=== PATIENT | female | born 1940 | race Caucasian/White ===

== ENCOUNTER → 2018-03-14 07:25 | Outpatient (CLI) | payer MEDICARE, SELFPAY ==
[2018-03-14 10:13] LABS: Absolute Lymphocyte Count 2.01 X10^3/ul (0.83-4.51); Absolute Neutrophil Count 2.9 X10^3/uL (2.0-7.7); Basophil# 0.03 X10^3/uL; Basophil% 0.5 % (0-1); Eosinophil# 0.32 X10^3/uL; Eosinophils% 5.5 % (0-5); Hematocrit 40.2 % (37-47); Hemoglobin 13.1 g/dl (12.0-15.0); Lymphocyte # 2.01 X10^3/ul (4.0); Lymphocyte % 34.4 % (19-41); Mean Corp Hgb Conc 32.6 g/gl (32-36); Mean Corpuscular Hgb 27.8 pg (27.0-32.0); Mean Corpuscular Volume 85.2 fL (81-99); Mean Platelet Vol. 11.7 fl (6.2-12.0); Monocyte# 0.54 X10^3/uL; Monocyte% 9.2 % (0-10); Neutrophil # 2.94 X10^3/uL (2.7-7.7); Neutrophil % 50.4 % (47-70); Platelet Count 179 K/mm3 (150-450); RBC Distribution Width CV 13.4 % (11.6-14.6); RBC Distribution Width SD 41.5 fl (35.1-43.9); Red Blood Count 4.72 M/mm3 (4.2-5.4); White Blood Count 5.8 K/mm3 (4.4-11.0)
[2018-03-14 10:15] LABS: POSITIVE COUNT NO; POSITIVE DIFFERENTIAL NO; POSITIVE MORPHOLOGY NO
[2018-03-14 10:24] LABS: Anion Gap 8 (5-15); BUN 20 mg/dL (7-18); BUN/Creat Ratio 18.9 RATIO (10-20); Calcium,Total 8.5 mg/dL (8.5-10.1); Chloride 105 mmol/L (98-107); Cholesterol 208 mg/dL (200); Creatinine, Serum 1.06 mg/dL (0.55-1.02); EST Glomerular Filtration Rate 53 mL/min (>60); Est Glom Filt Rate - Afr Amer 65 mL/min (>60); Glucose 85 mg/dL (74-106); High Density Lipoprotein 79 mg/dL; Potassium 4.5 mmol/L (3.5-5.1); Sodium Level 141 mmol/L (136-145); Triglycerides 79 mg/dL; Very Low Density Lipoprotein 16 mg/dL (5-40)
== END ==
PROVIDERS: Family Provider Internal Medicine; PCP Internal Medicine; Visit Provider Internal Medicine
DX: I10 Essential (primary) hypertension (principal); M85.80 Other specified disorders of bone density and structure, unspecified site
CPT/HCPCS: 36415; 80048; 80061; 85025

== ENCOUNTER → 2019-03-30 09:14 | Outpatient (CLI) | payer MEDICARE, SELFPAY ==
[2019-03-30 08:40] VITALS: BMI 39.6
[2019-03-30 12:38] LABS: Absolute Lymphocyte Count 1.48 X10^3/ul (0.83-4.51); Absolute Neutrophil Count 2.8 X10^3/uL (2.0-7.7); Basophil# 0.02 X10^3/uL; Basophil% 0.4 % (0-1); Eosinophil# 0.19 X10^3/uL; Eosinophils% 3.8 % (0-5); Hematocrit 39.2 % (37-47); Lymphocyte # 1.48 X10^3/ul (4.0); Lymphocyte % 29.8 % (19-41); Mean Corp Hgb Conc 33.2 g/gl (32-36); Mean Corpuscular Volume 84.3 fL (81-99); Mean Platelet Vol. 12.3 fl (6.2-12.0); Monocyte# 0.48 X10^3/uL; Monocyte% 9.7 % (0-10); Neutrophil # 2.79 X10^3/uL (2.7-7.7); Neutrophil % 56.3 % (47-70); Platelet Count 179 K/mm3 (150-450); RBC Distribution Width SD 39.3 fl (35.1-43.9); Red Blood Count 4.65 M/mm3 (4.2-5.4)
[2019-03-30 12:46] LABS: POSITIVE COUNT NO; POSITIVE DIFFERENTIAL NO; POSITIVE MORPHOLOGY NO
[2019-03-30 13:03] LABS: Anion Gap 6 (5-15); BUN 21 mg/dL (7-18); BUN/Creat Ratio 17.2 RATIO (10-20); Calcium,Total 8.7 mg/dL (8.5-10.1); Chloride 105 mmol/L (98-107); Cholesterol 218 mg/dL (200); Creatinine, Serum 1.22 mg/dL (0.55-1.02); EST Glomerular Filtration Rate 45 mL/min (>60); Est Glom Filt Rate - Afr Amer 55 mL/min (>60); Glucose 92 mg/dL (74-106); High Density Lipoprotein 90 mg/dL; Potassium 4.3 mmol/L (3.5-5.1); Sodium Level 140 mmol/L (136-145); Triglycerides 59 mg/dL; Very Low Density Lipoprotein 12 mg/dL (5-40)
== END ==
PROVIDERS: Family Provider Internal Medicine; PCP Internal Medicine; Visit Provider Internal Medicine
DX: I10 Essential (primary) hypertension (principal); M85.80 Other specified disorders of bone density and structure, unspecified site; F41.9 Anxiety disorder, unspecified
CPT/HCPCS: 36415; 80048; 80061; 85025

== ENCOUNTER → 2019-06-11 09:16 | Outpatient (CLI) | payer MEDICARE, SELFPAY ==
[2019-06-11 09:09] VITALS: BMI 39.6
--- NOTE | 2019-06-11 09:18 | RAD_ITS ---
STUDY: X-RAY - LUMBAR SPINE REASON FOR EXAM: Female, 78 years old. Low back pain following a recent fall. TECHNIQUE: 4 view(s) of the lumbar spine were obtained including oblique views. COMPARISON: None FINDINGS: There is an exaggerated lumbar lordosis. There is no substantial scoliosis. There is a normal alignment of the vertebrae. There is generalized demineralization of the vertebral bodies. Normal disc space heights. The soft tissue structures are unremarkable. RAD/L/S Spine Min 4 Views IMPRESSION: No acute abnormality is seen. Electronically Signed: José Antonio Reyna, at 10:25 EDT , Service support ,
== END ==
PROVIDERS: Family Provider Internal Medicine; PCP Internal Medicine; Referring Provider Physician Assistant Surgical; Visit Provider Physician Assistant Surgical
DX: S30.0XXA Contusion of lower back and pelvis, initial encounter (principal); X58.XXXA Exposure to other specified factors, initial encounter; Y93.9 Activity, unspecified; Y92.9 Unspecified place or not applicable; Y99.9 Unspecified external cause status
CPT/HCPCS: 72110

== ENCOUNTER → 2019-06-19 11:03 | Outpatient (CLI) | payer MEDICARE, SELFPAY ==
[2019-06-18 13:33] VITALS: BMI 39.6
== END ==
PROVIDERS: Family Provider Internal Medicine; PCP Internal Medicine; Referring Provider Internal Medicine; Visit Provider Internal Medicine
DX: R19.5 Other fecal abnormalities (principal)
CPT/HCPCS: 82274

== ENCOUNTER 2019-10-04 11:32 | Emergency (ER) | payer MEDICARE, SELFPAY ==
[2019-07-16 11:59] VITALS: BMI 39.6
[2019-10-04 11:33] VITALS: BP 163/73; PULSE 89; RESP 16; TEMP 36.7; O2SAT 99; BMI 36.2
--- NOTE | 2019-10-04 11:55 | VDLE_ITS ---
Reason For Study: pain RIGHT LEFT CFV is compressible, spontaneous, phasic, GSV is normal. competent and demonstrates normal CFV is compressible, spontaneous, phasic, augmentation. competent, and demonstrates normal Procedure augmentation. Exam performed portable in ED. FV is compressible, spontaneous, phasic, The exam was diagnostic. competent and demonstrates normal A preliminary report was called and/or faxed augmentation. to Dr. Dye. POP V is compressible, spontaneous, phasic, competent and demonstrates normal augmentation. T/P Trunk is compressible. PTV is compressible. LT PerV is compressible. Interpretation Summary There is no evidence of left lower extremity deep vein thrombosis. Left great saphenous vein appears patent and compressible segmentally. Normal flow patterns right common femoral vein Ordering Physician: Félix Dye Performed By: Jaquan Walker RVT
--- NOTE | 2019-10-04 13:27 | ED.VISSUMM ---
- ER Visit Summary Date of Service: 10/04/19 Chief Complaint: [Left leg pain] History of Present Illness: The patient is a 79 F [presents the emergency department complaint of left leg pain that she is had for over 3 months. Patient states that she fell 3 months ago and injured her left leg and she has had pain ever since that time. Patient states that she was seen at a walk-in clinic and had x-rays of her leg which were unremarkable. Patient is able to bear weight but does have pain with walking. She denies weakness in extremities. She denies any change in bowel bladder function. She denies any saddle anesthesia. She denies recent travel or surgery. She denies any chest pain or shortness of breath. Patient states that her primary care physician gave her some pain medicine that seems to help her pain when she takes it.] Physical Examination: [HEENT-PERRLA, EOMI. Cranial nerves II through XII grossly intact. TMs clear. Mucous membranes moist. No adenopathy. Cardiovascular-regular rate and rhythm without murmur or ectopy Lungs-clear to auscultation, chest wall stable without crepitus or subcu emphysema Abdomen-normoactive bowel sounds, soft, nontender, no rebound or rigidity, no peritoneal signs. Back exam-no tenderness over the lumbar spine or paraspinal musculature. Negative straight leg raises. Deep tendon reflexes are plus 2 out of 4 bilaterally at the patella and Achilles. Patient has normal L5 extension. Extremities-intact ?4, normal range of motion, normal pulses, atraumatic]. Left leg-no obvious deformity. There is no significant edema or swelling noted. I have a hard time reproducing her pain on palpation of the leg. She has a negative Homans sign. She has negative straight leg raises. No erythema or warmth noted to the extremity. Has normal pulses. Test Results: [Venous Doppler of the left leg obtained was negative for DVT. Emergency Department Course and Treatment: [] Treatment Plan: [Will be given a prescription for few [place] for pain. Patient to follow-up with her primary care physician and also I will refer her to orthopedics for follow-up if her pain persist.] Disposition: [Discharged home in stable condition.] Impression: [Left leg pain-etiology uncertain] This note was generated with PreciouStatusation software. It may contain incorrect words, spelling, and punctuation that were not noted in review of the chart prior to signing ED Disposition - Plan for ED Patient: Disposition: Home or Assisted Living Referrals: Jammie Coleman MD [Primary Care Provider] -
--- NOTE | 2019-10-04 13:30 | DCINST.ED_ITS ---
ED Disposition - Plan for ED Patient: Disposition: Home or Assisted Living Instructions: CONTUSION, Lower Extremity Prescriptions: Hydrocodone Bitart/Apap 5-325 [[place] 5MG-325MG] 1 tab PO Q4H PRN PRN 2 Days #10 tab PRN Reason: Pain Prescription Printed Referrals: Jammie Coleman MD [Primary Care Provider] - 3-5 Days Nitin Macario MD [STAFF PHYSICIAN] - 3-5 Days
[2019-10-04 13:51] VITALS: RESP 16
--- NOTE | 2019-10-04 13:52 | ED.RN ---
REVIEWED D/C INSTRUCTIONS, FOLLOW UP CARE, PRESCRIPTION, AND S/S THAT WOULD WARRANT A RETURN TO THE ED WITH PT. PT VERBALIZED AN UNDERSTANDING AND DENIES FURTHER QUESTIONS FOR THIS RN. PT SKIN P/W/D, RESP EVEN AND UNLABORED, PT A&O X 3, NO DISTRESS NOTED. PT AMBULATED OUT OF ED, GAIT STEADY.
== END 2019-10-04 13:54 | disposition home or self-care (01) ==
PROVIDERS: Emergency Provider Emergency Medicine; Family Provider Internal Medicine; PCP Internal Medicine
DX: M79.605 Pain in left leg (principal); Z79.82 Long term (current) use of aspirin; Z79.899 Other long term (current) drug therapy
CPT/HCPCS: 93971; 99282

== ENCOUNTER → 2019-10-05 11:40 | Outpatient (CLI) | payer MEDICARE, SELFPAY ==
[2019-10-05 10:44] VITALS: BMI 36.2
--- NOTE | 2019-10-05 11:42 | RAD_ITS ---
STUDY: X-RAY - LEFT KNEE REASON FOR EXAM: Female, 79 years old. Left knee pain TECHNIQUE: 4 view(s) of the knee. COMPARISON: None. FINDINGS: Normal visualized distal femur. Normal visualized proximal tibia and fibula. Normal proximal tibiofibular articulation. There is mild degenerative arthrosis of the medial femorotibial compartment. Normal lateral femorotibial compartment. There is mild degenerative arthrosis of the patellofemoral articulation. The soft tissue structures are unremarkable. RAD/Knee 4 or More Views IMPRESSION: Mild degenerative changes of the medial and patellofemoral compartments. Electronically Signed: Juancho Payan MD at 18:47 EST , Service support ,
== END ==
PROVIDERS: Family Provider Internal Medicine; PCP Internal Medicine; Referring Provider Nurse Practitioner Family; Visit Provider Nurse Practitioner Family
DX: M25.562 Pain in left knee (principal); G89.29 Other chronic pain
CPT/HCPCS: 73564

== ENCOUNTER 2019-12-27 20:01 | Emergency (ER) | payer MEDICARE, SELFPAY ==
[2019-11-20 10:40] VITALS: BMI 36.2
[2019-12-27 20:03] VITALS: BP 146/82; PULSE 100; RESP 18; TEMP 36.4; O2SAT 98; BMI 38.9
--- NOTE | 2019-12-27 20:47 | ED.RN ---
marbin davila did go in to the room to do an ekg and the pt stated that she does't have anything wrong with her heart and c/o neck pain and goose bumps on her chest. pt wants md to evaluate first.
--- NOTE | 2019-12-27 21:04 | EKG12_ITS ---
Test Reason : PALPITATIONS Blood Pressure : / mmHG Vent. Rate : 091 BPM Atrial Rate : 091 BPM P-R Int : 180 ms QRS Dur : 082 ms QT Int : 340 ms P-R-T Axes : 058 049 -01 degrees QTc Int : 418 ms Sinus rhythm with marked sinus arrhythmia Otherwise normal ECG Confirmed by REGINA PEREA, HERVE ([id number]), senior technical editor MIKAEL STUART ([id number]) on 12/31/2019 9:54:05 AM Referred By: ROMULO Confirmed By:HERVE TAPIA MD
--- NOTE | 2019-12-27 21:05 | RAD_ITS ---
STUDY: X-RAY CHEST REASON FOR EXAM: Female, 79 years old. Palpitations TECHNIQUE: Single AP portable view of the chest. COMPARISON: 05/30/2016 FINDINGS: The lungs are clear and expanded. There is no demonstrated pleural abnormality. Normal size heart. Normal mediastinum and jailene. Normal visualized pulmonary arteries. Normal visualized aortic arch and descending thoracic aorta. Normal visualized thoracic spine. Normal visualized ribs, clavicles, and shoulders. There is no demonstrated abnormality of the visualized soft tissue structures of the upper abdomen. RAD/Chest 1 View (Portable) IMPRESSION: Normal x-ray examination of the chest. Electronically Signed: Danny Mc MD at 21:22 EST , Service support ,
[2019-12-27 21:12] LABS: Absolute Lymphocyte Count 2.24 X10^3/uL (0.83-4.51); Absolute Neutrophil Count 4.4 X10^3/uL (2.0-7.7); Basophil# 0.04 X10^3/uL; Basophil% 0.5 % (0-1); Eosinophil# 0.21 X10^3/uL; Eosinophils% 2.8 % (0-5); Hematocrit 37.1 % (37-47); Hemoglobin 12.4 g/dL (12.0-15.0); Lymphocyte # 2.24 X10^3/ul (4.0); Lymphocyte % 29.7 % (19-41); Mean Corp Hgb Conc 33.4 g/dL (32-36); Mean Corpuscular Hgb 28.9 pg (27.0-32.0); Mean Corpuscular Volume 86.5 fL (81-99); Mean Platelet Vol. 12.1 fl (6.2-12.0); Monocyte# 0.63 X10^3/uL; Monocyte% 8.4 % (0-10); NRBC Flagged by Analyzer 0 % (0-5); Neutrophil # 4.38 X10^3/uL (2.7-7.7); Neutrophil % 58.2 % (47-70); Platelet Count 222 K/mm3 (150-450); RBC Distribution Width CV 12.6 % (11.6-14.6); RBC Distribution Width SD 39.9 fl (35.1-43.9); Red Blood Count 4.29 M/mm3 (4.2-5.4); White Blood Count 7.5 K/mm3 (4.4-11.0)
[2019-12-27 21:16] VITALS: BP 163/74; PULSE 89; RESP 18; O2SAT 96
[2019-12-27] MEDS: Aspirin 81 MG TAB.CHEW 324 MG PO (21:16)
[2019-12-27 21:31] LABS: Anion Gap 5 (5-15); BUN 17 mg/dL (7-18); BUN/Creat Ratio 13.3 RATIO (10-20); Calcium,Total 8.6 mg/dL (8.5-10.1); Chloride 103 mmol/L (98-107); Creatinine, Serum 1.28 mg/dL (0.55-1.02); EST Glomerular Filtration Rate 43 mL/min (>60); Est Glom Filt Rate - Afr Amer 52 mL/min (>60); Estimated Creatinine Clearance 28.19 ml/min; Glucose 120 mg/dL (74-106); Potassium 3.8 mmol/L (3.5-5.1); Sodium Level 136 mmol/L (136-145)
[2019-12-27 22:46] VITALS: BP 137/63; PULSE 100; RESP 18; O2SAT 96
[2019-12-27 23:02] VITALS: BP 132/58; PULSE 87; RESP 20; O2SAT 97
--- NOTE | 2019-12-28 00:19 | ED.DCSUM_ITS ---
- ER Visit Summary Date of Service: 12/28/19 Chief Complaint: Anxiety History of Present Illness: The patient is a 79 F presenting stating that she has anxiety. She states that she has been under stress and worries about paying her bills. She states she had palpitations/goosebumps in her chest feeling. She denies chest pain or chest pressure. Denies shortness of breath. Denies recent fever or cough. She complains of anxiety. She denies suicidal thoughts or depression. Denies dizziness or syncope. Denies other complaints. Physical Examination: Vitals are stable. Patient is afebrile. Alert no acute distress. HEENT exam is unremarkable. Neck is supple. Lungs are clear and equal bilaterally. Heart is regular rate and rhythm. Abdomen is soft nontender nondistended. Extremities are unremarkable. Skin is warm and dry. No focal neurologic deficit. Remainder of exam is unremarkable. Emergency Department Course and Treatment: EKG is sinus rhythm rate of 91 with no acute ischemic changes. CBC, chemistries unremarkable other than glucose 120, creatinine 1.28. Troponin is negative. Chest x-ray shows no acute process. Repeat troponin is also negative. On reevaluation patient is resting comfortably and is asymptomatic. She will be discharged. She is advised to follow-up with her primary care physician. Advised return to ED for worsening symptoms. Disposition: Discharge home Impression: Palpitations This note was generated with [employer] 2 dictation software. It may contain incorrect words, spelling, and punctuation that were not noted in review of the chart prior to signing ED Disposition - Plan for ED Patient: Instructions: Palpitations Referrals: Jammie Coleman MD [Primary Care Provider] -
[2019-12-28 00:21] VITALS: BP 160/75; PULSE 100; RESP 15; O2SAT 96
== END 2019-12-28 00:22 | disposition home or self-care (01) ==
PROVIDERS: Emergency Provider Emergency Medicine; PCP Internal Medicine
DX: R00.2 Palpitations (principal); F41.9 Anxiety disorder, unspecified; Z79.82 Long term (current) use of aspirin; Z79.899 Other long term (current) drug therapy
CPT/HCPCS: 71045; 80048; 84484; 85025; 93005; 99285; A4216

== ENCOUNTER 2021-02-11 11:31 | Emergency (ER) | payer MEDICARE, SELFPAY ==
[2020-02-22 16:06] VITALS: BMI 38.9
[2021-02-11 11:33] VITALS: BP 143/74; PULSE 78; RESP 14; TEMP 35.3; O2SAT 98; BMI 39.2
[2021-02-11 11:44] VITALS: BMI 34.0
--- NOTE | 2021-02-11 11:48 | CT_ITS ---
STUDY: CT BRAIN WITHOUT CONTRAST REASON FOR EXAM: Female, 80 years old. Aphasia for 6 to 8 months. RADIATION DOSAGE (If Supplied By Facility): CTDIvol = ( 44.99 ) mGy, DLP = ( 779.24 ) mGycm TECHNIQUE: Transaxial CT imaging of the brain was performed without administration of intravenous contrast material. Individualized dose optimization techniques were used for this CT. COMPARISON: Comparison is made with prior examination dated 05/16/2017. FINDINGS: Normal soft tissue structures. Normal calvarium. There is moderate cerebral atrophy with widening of the extra-axial spaces and ventricular dilatation. Stable 5.3 mm rounded focus of increased attenuation in the anterior aspect of the right frontal lobe. This may represent a cavernous angioma. Normal basal ganglia and thalami. Normal brainstem. There is mild cerebellar atrophy. There is no intracranial hemorrhage. There are no findings of an acute ischemic infarction. Atherosclerotic plaque formation of the cavernous portions of the internal carotid arteries bilaterally. Normal visualized paranasal sinuses. CT/Brain/Head without Contrast IMPRESSION: Chronic involutional changes of the brain. Stable examination. Electronically Signed: José Antonio Reyna MD at 12:34 EDT , Service support ,
--- NOTE | 2021-02-11 11:49 | EKG12_ITS ---
Test Reason : NEURO Blood Pressure : / mmHG Vent. Rate : 070 BPM Atrial Rate : 070 BPM P-R Int : 166 ms QRS Dur : 088 ms QT Int : 404 ms P-R-T Axes : -01 044 018 degrees QTc Int : 436 ms Normal sinus rhythm Normal ECG Confirmed by REGINA PEREA, HERVE ([id number]), editor department MIKAEL STUART ([id number]) on 02/13/2021 11:32:01 AM Referred By: RU Confirmed By:HERVE TAPIA MD
--- NOTE | 2021-02-11 11:50 | ED.DCSUM_ITS ---
- ER Visit Summary Date of Service: 02/11/21 Chief Complaint: [Concern for stroke secondary to expressive aphasia] History of Present Illness: The patient is a 80 F [presents to the emergency department from urgent care after she was advised that she should be seen in the emergency department. Patient states that she went to urgent care today because yesterday she had a pop in her right ear that was transient and uncomfortable but has since resolved any discomfort. Patient also states that today she had a couple of waves of a hot sensation that starts in her legs and got it goes up towards her head and then back down and she has had this happen twice today. She denies any fever. She denies cough. She denies urinary symptoms. She denies focal weakness. Patient was noted to have some expressive aphasia which she states that she has had trouble finding words for 5 or 6 months. Patient has history of hypertension as well as BPV and history of anxiety. Patient also states that she is currently not wearing her dentures.] Physical Examination: [HEENT-PERRLA, EOMI. Cranial nerves II through XII grossly intact. TMs clear. Mucous membranes moist. No adenopathy. Cardiovascular-regular rate and rhythm without murmur or ectopy Lungs-clear to auscultation, chest wall stable without crepitus or subcu emphysema Abdomen-normoactive bowel sounds, soft, nontender, no rebound or rigidity, no peritoneal signs. Neuro [id number]-[id number] and heel burroughs testing within normal limits, negative Romberg, negative Romberg, fundi benign. No focal neurologic deficits noted. There is no facial droop. No dysarthria noted. Patient was not noted to have any significant expressive aphasia here. Extremities-intact ?4, normal range of motion, normal pulses, atraumatic] Test Results: [EKG obtained arrival shows sinus rhythm with a ventricular rate 70 bpm with no acute ST segment changes. CBC with differential was normal. Chemistries unremarkable. Urinalysis normal. Troponin less than 0.015. CT scan of the brain without contrast showed chronic involutional changes otherwise nothing acute. She did have a 5.3 mm density in the right frontal lobe which speculated to be a cavernous angioma.] Emergency Department Course and Treatment: [ IV line established on arrival. Patient placed on a alarm security or surveillance monitor. I discussed results with patient and I discussed with patient's daughter who is now in the room. Patient apparently has becoming more forgetful and difficulty with speech is been ongoing for months. Patient has not been diagnosed with dementia.] Treatment Plan: [Patient advised to follow-up with primary care physician in 5 to 7 days. At this point etiology of her symptoms unclear.] Disposition: [Discharged home in stable condition] Impression: [Difficulty with speech-etiology uncertain Hot flashes] This note was generated with [employer] dictation software. It may contain incorrect words, spelling, and punctuation that were not noted in review of the chart prior to signing ED Disposition - Plan for ED Patient: Referrals: Jammie Coleman MD [Primary Care Provider] -
[2021-02-11 12:16] LABS: Absolute Lymphocyte Count 1.49 X10^3/uL (0.83-4.51); Absolute Neutrophil Count 4.9 X10^3/uL (2.0-7.7); Basophil# 0.04 X10^3/uL; Basophil% 0.6 % (0-1); Eosinophil# 0.16 X10^3/uL; Eosinophils% 2.2 % (0-5); Hematocrit 41.3 % (37-47); Hemoglobin 13.7 g/dL (12.0-15.0); Lymphocyte # 1.49 X10^3/ul (4.0); Lymphocyte % 20.7 % (19-41); Mean Corp Hgb Conc 33.2 g/dL (32-36); Mean Corpuscular Hgb 28.8 pg (27.0-32.0); Mean Corpuscular Volume 86.8 fL (81-99); Mean Platelet Vol. 11.2 fl (6.2-12.0); Monocyte# 0.63 X10^3/uL; Monocyte% 8.8 % (0-10); NRBC Flagged by Analyzer 0 % (0-5); Neutrophil # 4.86 X10^3/uL (2.7-7.7); Neutrophil % 67.4 % (47-70); Platelet Count 233 K/mm3 (150-450); Red Blood Count 4.76 M/mm3 (4.2-5.4); White Blood Count 7.2 K/mm3 (4.4-11.0)
[2021-02-11 12:35] LABS: Anion Gap 4 (5-15); BUN 18 mg/dL (7-18); BUN/Creat Ratio 16.2 RATIO (10-20); Calcium,Total 9.2 mg/dL (8.5-10.1); Chloride 104 mmol/L (98-107); Creatinine, Serum 1.11 mg/dL (0.55-1.02); EST Glomerular Filtration Rate 50 mL/min (>60); Est Glom Filt Rate - Afr Amer 61 mL/min (>60); Estimated Creatinine Clearance 33.44 ml/min; Glucose 113 mg/dL (74-106); Potassium 4.3 mmol/L (3.5-5.1); Sodium Level 137 mmol/L (136-145)
[2021-02-11 12:51] VITALS: BP 159/70; PULSE 69; RESP 18; O2SAT 97
[2021-02-11 13:06] LABS: Mucous, Urine 0 SEEN /hpf (<or=2+); Red Blood Cells-Urine 0 SEEN /hpf (0-5)
[2021-02-11 13:09] LABS: Color, Urine Straw (Yellow); Glucose, Dipstick Normal (Normal); Ketone-Dipstick Negative (Negative); Leukocyte Esterase-Dipstick 25 /ul (Negative); Nitrite-Dipstick Negative (Negative); Occult Blood-Urine Negative /ul (Negative); Protein-Dipstick Negative (Negative); Urine Bilirubin Dipstick Negative (Negative); Urine Clarity Sl. Cloudy (Clear); Urine Urobilinogen Normal (Normal)
[2021-02-11 13:22] LABS: Bacteria 2+ /hpf (None Seen); Squamous Epithelial Cells - UA 0-5 SEEN /hpf (5-10); White Blood Cells 0-5 SEEN /hpf (0-5)
--- NOTE | 2021-02-11 13:36 | ED.DEP ---
ED Disposition - Plan for ED Patient: Instructions: ED Weakness (Uncertain Cause), ED Confusion, Understanding Dementia Referrals: Jammie Coleman MD [Primary Care Provider] - 5-7 Days
[2021-02-11 13:51] VITALS: BP 140/72; PULSE 78; RESP 16; O2SAT 95
== END 2021-02-11 13:56 | disposition home or self-care (01) ==
PROVIDERS: Emergency Provider Emergency Medicine; PCP Internal Medicine
DX: R47.01 Aphasia (principal); N95.1 Menopausal and female climacteric states; D18.02 Hemangioma of intracranial structures; I10 Essential (primary) hypertension; H81.10 Benign paroxysmal vertigo, unspecified ear; F41.9 Anxiety disorder, unspecified; Z79.899 Other long term (current) drug therapy; Z79.82 Long term (current) use of aspirin
CPT/HCPCS: 70450; 80048; 81001; 84484; 85025; 93005; 99284; A4216

== ENCOUNTER → 2021-03-07 08:25 | Outpatient (CLI) | payer MEDICARE, SELFPAY ==
[2021-02-20 09:19] VITALS: BMI 39.3
--- NOTE | 2021-03-07 08:29 | MRI_ITS ---
STUDY: MRI BRAIN WITHOUT CONTRAST REASON FOR EXAM: Female, 80 years old. Dizziness expressive aphasia TECHNIQUE: Standardized multiplanar fat and water weighted pulse sequences were obtained. COMPARISON: 11 February 2021, 16 September 2013 FINDINGS: There is no acute infarct. There is no Mass effect, extra parenchymal fluid collections or herniation. 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 Major vascular flow structures are intact. Craniocervical junction is unremarkable. Left lens is removed. MRI/Brain without Contrast IMPRESSION: 1. No acute infarct. 2. No acute findings. 3. Stable since 2012. 4. Small right frontal cavernous angioma. Electronically Signed: Akosua Prieto MD at 10:34 EDT Tel , Service support ,
== END ==
PROVIDERS: PCP Internal Medicine; Visit Provider Internal Medicine
DX: R47.01 Aphasia (principal); R42 Dizziness and giddiness
CPT/HCPCS: 70551

== ENCOUNTER 2021-09-21 14:23 | Inpatient (IN) | payer MEDICARE, SELFPAY ==
[2021-09-21] VITALS (10 sets, daily range): BP systolic 113–136; BP diastolic 58–111; PULSE 82–99; RESP 16–253; TEMP 36.1–37.2; O2SAT 92–98; BMI 35.2; BMI 34.3
--- NOTE | 2021-09-21 14:49 | EKG12_ITS ---
Test Reason : SOB Blood Pressure : / mmHG Vent. Rate : 102 BPM Atrial Rate : 102 BPM P-R Int : 138 ms QRS Dur : 078 ms QT Int : 320 ms P-R-T Axes : 000 052 023 degrees QTc Int : 417 ms Sinus tachycardia with Premature atrial complexes Otherwise normal ECG Confirmed by CONSTANZA PEREA, NELSON ([id number]), movie editor MIKAEL STUART ([id number]) on 09/25/2021 7:22:28 AM Referred By: TOMEKA Confirmed By:NELSON APODACA MD
--- NOTE | 2021-09-21 14:51 | EDS_ITS ---
HPI History of Present Illness Chief Complaint: Shortness of Breath Informant: patient Narrative Narrative: It is extremely difficult to get answers from this patient. There is recorded shortness of breath but she denies this to me. When I note that she has a cough she admits it but does not know when it started but does not think it is new. She points to her right tooth on the upper jaw is an area of problem. But she does not say what is wrong with it. When I ask her if it hurts she states it never hurt and it does not hurt now. I then asked her what is wrong with her right tooth and she states that it hurts. She is oriented to person and hospital. I cannot get the date from her. She could not tell me the president but seem to recognize President Paradise's name who was the prior president. The one thing I can get her to admit to his nausea vomiting and diarrhea. However she denies abdominal pain. I cannot get her to answer anything about urination. Patient cannot tell me her past medical history, medications, allergies. She thinks she has had her appendix out with something else but does not know if she is ever had hysterectomy. She cannot tell me what surgery she had. It sounds like she currently lives in her home but her family has moved in with her over some recent period of time. Because of her questioning, I question the accuracy of her review of systems although we did go through this with her. I asked her about Covid vaccine and she does not seem to recognize what I am asking about. [facility] Medical History (Updated 09/21/21 @ 19:[address] Manuel Palmer MD) Anxiety Back pain Cancer Diabetes Hypertension Osteopenia Home Medications aspirin 81 mg PO DAILY@0800 09/15/13 [History Last Taken 05/16/17] citalopram 20 mg tablet 20 mg PO DAILY #90 tablet 10/28/20 [Rx Last Taken Unknown] lisinopril 5 mg tablet 5 mg PO DAILY #90 tablet 01/27/21 [Rx Last Taken Unknown] arm brace #2 each 02/20/21 [Rx Last Taken Unknown] multivitamin 1 tablet PO DAILY 02/20/21 [History Last Taken Unknown] Allergy/AdvReac Type Severity Reaction Status Date / Time codeine AdvReac Other Verified 09/21/21 14:24 Family History Mother Hypertension Cancer lymphoma Diabetes Sister Colon cancer Brother CVA (cerebral vascular accident) Social History Smoking Status: Never smoker alcohol intake: current alcohol intake frequency: holidays/special occasions only Alcohol type: beer substance use type: does not use what type of physical activity do you participate in: walking frequency: 3-4 times per week ROS ROS ED Review of Systems ROS Unobtainable: due to mental status Constitutional Constitutional ED: Denies fever(s) Eyes Eyes: Denies blurry vision ENT ENT ED: Reports other Details: She does state her right upper jaw is sore. Please see history of present illness. Cardiovascular Cardiovascular: Denies chest pain Respiratory/Chest Respiratory/Chest: Reports cough; Denies dyspnea Gastrointestinal Gastrointestinal: Reports diarrhea, nausea and vomiting; Denies abdominal pain Genitourinary Genitourinary ED: Reports other Details: Unable to give me an answer. Musculoskeletal Musculoskeletal: Denies myalgias Integumentary Denies rash Neurologic Neurologic: Reports weakness and other Details: Patient does admit to generalized weakness. She states she just does not feel well. She cannot elaborate further. Allergic/Immunologic Allergic/Immunologic ED: Denies urticaria EXAM Physical Exam Const Vital Signs: 09/21/21 14:25 09/21/21 14:28 09/21/21 15:28 Temperature 99 F 99 F Temperature Source Temporal Temporal Pulse Rate 99 99 99 Respiratory Rate 24 H 24 H 21 H Blood Pressure 136/111 H 136/111 H 127/67 H Blood Pressure Mean 119 119 87 Pulse Ox 92 92 95 Oxygen Delivery Method Room Air Room Air Room Air Oxygen Flow Rate (L/min) 09/21/21 16:08 09/21/21 17:11 09/21/21 17:40 Temperature 99.0 F Temperature Source Temporal Pulse Rate 94 90 88 Respiratory Rate 16 22 H 25 H Blood Pressure 120/63 122/61 H 122/61 H Blood Pressure Mean 82 81 81 Pulse Ox 96 95 95 Oxygen Delivery Method Room Air Nasal Cannula Nasal Cannula Oxygen Flow Rate (L/min) 2 2 09/21/21 18:19 09/21/21 19:07 Temperature Temperature Source Pulse Rate 91 86 Respiratory Rate 26 H 25 H Blood Pressure 113/60 115/60 Blood Pressure Mean 77 78 Pulse Ox 97 97 Oxygen Delivery Method Nasal Cannula Nasal Cannula Oxygen Flow Rate (L/min) 2 2 Positive well nourished and well developed General Appearance ED: well developed and NAD; Negative for cyanotic or diaphoretic HEENT Reports dry mucous membranes HEENT Narrative: She is edentulous. I see no areas of swelling or erythema. There is some bony fullness in her right upper posterior jaw where she seems to have discomfort. But it is not soft or red. It is also not tender on exam. Mouth ED: Yes dry mucous membranes Mouth: dry mucous membranes Eyes PERRL Neck no lymphadenopathy and no JVD Neck Narrative: I feel no neck masses. Resp normal respiratory effort and clear to auscultation bilaterally Resp Narrative: Patient does have intermittent cough. But I hear no wheezes rales or rhonchi. Auscultation: Negative for rales, rhonchi or wheezes Cardio regular rate and regular rhythm GI normal to inspection, nondistended, normoactive bowel sounds, non-tender and non-distended GI Narrative: I press firmly in all quadrants. There is no discomfort. Palpation: soft Back/Spine no CVA tenderness Extremity normal to inspection Neuro Neuro Narrative: Oriented to person and [facility]. She cannot give me the current president or the date. Sensorium / Orientation: alert Psych Psych Narrative: Mildly flat affect. Skin no rashes or lesions noted MDM MDM MDM Narrative Medical decision making narrative: Patient's labs show elevated hemoglobin that might be some mild hemoconcentration. Low her white count. Lactate is normal. Troponin was negative. Creatinine was up a bit showing some signs of dehydration with elevated BUN to creatinine ratio. X-ray was consistent with Covid. Covid was positive. Urinalysis also showed UTI with cloudy urine on a cath specimen with 25-50 white cells and nitrites and leukocyte Estrace. She was treated for this. We tried to walk the patient and she is just too weak to walk. She was hypoxic in the lower 80% by EMS. I discussed case with hospitalist and the patient will be admitted. Lab Data Attestation: I reviewed the patient's lab results. Labs: Laboratory Results - last 24 hr 09/21/21 09/21/21 09/21/21 16:32 16:32 16:32 WBC 5.1 RBC 5.63 H Hgb 15.7 H Hct 46.4 MCV 82.4 MCH 27.9 MCHC 33.8 RDW Std Deviation 38.1 RDW Coeff of Te 12.5 Plt Count 130 L MPV 12.7 H Immature Gran % (Auto) 0.200 Neut % (Auto) 78.2 H Lymph % (Auto) 12.1 L [place] % (Auto) 9.3 Eos % (Auto) 0.0 Baso % (Auto) 0.2 Absolute Neuts (auto) 4.0 Absolute Lymphs (auto) 0.62 L Nucleated RBC % 0 Sodium 136 Potassium 4.3 Chloride 103 Carbon Dioxide 25.0 Anion Gap 8 BUN 38 H Creatinine 1.41 H Estim Creat Clear Calc 27.02 Est GFR (MDRD) Af Amer 46 L Est GFR (MDRD) Non-Af 38 L BUN/Creatinine Ratio 27.0 H Glucose 122 H Lactic Acid 1.6 Calcium 8.7 Total Bilirubin 0.40 AST 57 H ALT 43 Alkaline Phosphatase 60 Troponin I High Sens 21 Total Protein 8.1 Albumin 3.3 Globulin 4.8 H Albumin/Globulin Ratio 0.7 L Urine Color Urine Clarity Urine pH Ur Specific [place] Urine Protein Urine Glucose (UA) Urine Ketones Urine Occult Blood Urine Nitrite Urine Bilirubin Urine Urobilinogen Ur Leukocyte Esterase Urine RBC Urine WBC Ur Squamous Epith Cells Urine Bacteria Urine Mucus 09/21/21 16:57 WBC RBC Hgb Hct MCV MCH MCHC RDW Std Deviation RDW Coeff of Te Plt Count MPV Immature Gran % (Auto) Neut % (Auto) Lymph % (Auto) [place] % (Auto) Eos % (Auto) Baso % (Auto) Absolute Neuts (auto) Absolute Lymphs (auto) Nucleated RBC % Sodium Potassium Chloride Carbon Dioxide Anion Gap BUN Creatinine Estim Creat Clear Calc Est GFR (MDRD) Af Amer Est GFR (MDRD) Non-Af BUN/Creatinine Ratio Glucose Lactic Acid Calcium Total Bilirubin AST ALT Alkaline Phosphatase Troponin I High Sens Total Protein Albumin Globulin Albumin/Globulin Ratio Urine Color Yellow Urine Clarity Sl. Cloudy Urine pH 5.0 Ur Specific [place] 1.025 Urine Protein 100 H Urine Glucose (UA) Normal Urine Ketones 50 H Urine Occult Blood 150 H Urine Nitrite Positive H Urine Bilirubin Negative Urine Urobilinogen Normal Ur Leukocyte Esterase 100 H Urine RBC 0-5 SEEN Urine WBC 25-50 SEEN Ur Squamous Epith Cells 0 SEEN Urine Bacteria 3+ Urine Mucus 0 SEEN Radiography Diagnostic Testing: Clinical Impression(s) from Imaging Studies Chest X-Ray 09/21/21 14:57 IMPRESSION: Mild atelectasis right lower lung zone. Electronically Signed: Dionicio Cha MD at 16:26 EST Tel , Service support , EKG Initial EKG: Comments: EKG done for generalized weakness read by me shows sinus rhythm with tachycardic rate at 102. Nonspecific ST and T wave changes but no convincing evidence of infarct or ischemia. [place] interval, QRS duration and QTc normal. Discharge Plan Triage Chief Complaint: Shortness of Breath ED Provider: Manuel Palmer Dx/Rx/DC Orders Clinical Impression: Pneumonia due to 2019-nCoV, Urinary tract infection, Declining functional status, Inability to ambulate due to multiple joints Prescriptions: No Action multivitamin Tablet 1 tablet PO DAILY RF: 0 (DME) Wrist Brace Misc See Rx Instructions .ROUTE .MEDSUPPLY Qty: 2 RF: 2 aspirin 81 MG tablet,chewable 81 mg PO DAILY@0800 RF: 0 citalopram 20 mg tablet 20 mg PO DAILY Qty: 90 RF: 3 lisinopril 5 mg tablet 5 mg PO DAILY Qty: 90 RF: 3 Primary Care Provider: Jammie Coleman Referrals: Jammie Coleman MD [Primary Care Provider] - Disposition Disposition: Acute Care Hospital [facility]
--- NOTE | 2021-09-21 14:57 | RAD_ITS ---
INDICATION: cough EXAMINATION/TECHNIQUE: X-RAY - XR Chest 1 View COMPARISON: 12/27/2019 FINDINGS: LINES/DEVICES: Several monitoring leads seen over the chest. LUNGS: Minimal atelectasis over the right hemidiaphragm. MEDIASTINUM AND CARDIOVASCULAR STRUCTURES: Cardiac silhouette is prominent. Patient is rotated to the right somewhat limiting evaluation. BONES AND SOFT TISSUES: Unremarkable. RAD/Chest 1 View (Portable) IMPRESSION: Mild atelectasis right lower lung zone. Electronically Signed: Dionicio Cha MD at 16:26 EST Tel , Service support ,
--- NOTE | 2021-09-21 16:07 | ED.RN ---
pt is a difficult IV start. multiple attempts by different nurse and [employer] rep. Lab called to have a skiver hand try. maryanne urban rn [phone]
[2021-09-21 16:49] LABS: Absolute Lymphocyte Count 0.62 X10^3/uL (0.83-4.51); Basophil# 0.01 X10^3/uL; Basophil% 0.2 % (0-1); Hematocrit 46.4 % (37-47); Hemoglobin 15.7 g/dL (12.0-15.0); Lymphocyte # 0.62 X10^3/ul (0.83-4.51); Lymphocyte % 12.1 % (19-41); Mean Corp Hgb Conc 33.8 g/dL (32-36); Mean Corpuscular Hgb 27.9 pg (27.0-32.0); Mean Corpuscular Volume 82.4 fL (81-99); Mean Platelet Vol. 12.7 fl (6.2-12.0); Monocyte# 0.48 X10^3/uL; Monocyte% 9.3 % (0-10); NRBC Flagged by Analyzer 0 % (0-5); Neutrophil # 4.02 X10^3/uL (2.7-7.7); Neutrophil % 78.2 % (47-70); Platelet Count 130 K/mm3 (150-450); RBC Distribution Width CV 12.5 % (11.6-14.6); RBC Distribution Width SD 38.1 fl (35.1-43.9); Red Blood Count 5.63 M/mm3 (4.2-5.4); White Blood Count 5.1 K/mm3 (4.4-11.0)
[2021-09-21 17:02] LABS: Mucous, Urine 0 SEEN /hpf (<or=2+); Squamous Epithelial Cells - UA 0 SEEN /hpf (5-10)
[2021-09-21 17:09] LABS: ALB/GLOB Ratio 0.7 RATIO (0.9-2.4); AST(SGOT) 57 U/L (15-37); Alanine Aminotransfer ALT/SGPT 43 U/L (13-56); Albumin, Serum 3.3 g/dL (3.2-5.0); Alkaline Phosphatase 60 U/L (45-117); Anion Gap 8 (5-15); BUN 38 mg/dL (7-18); Calcium,Total 8.7 mg/dL (8.5-10.1); Chloride 103 mmol/L (98-107); Creatinine, Serum 1.41 mg/dL (0.55-1.02); EST Glomerular Filtration Rate 38 mL/min (>60); Est Glom Filt Rate - Afr Amer 46 mL/min (>60); Estimated Creatinine Clearance 27.02 ml/min; Globulin 4.8 g/dL (2.2-4.2); Glucose 122 mg/dL (74-106); Potassium 4.3 mmol/L (3.5-5.1); Protein, Total 8.1 g/dL (6.4-8.2); Sodium Level 136 mmol/L (136-145); Troponin-I HS 21 pg/mL (3.0-54.0)
[2021-09-21 17:20] LABS: Color, Urine Yellow (Yellow); Glucose, Dipstick Normal (Normal); Ketone-Dipstick 50 mg/dl (Negative); Leukocyte Esterase-Dipstick 100 /ul (Negative); Nitrite-Dipstick Positive (Negative); Occult Blood-Urine 150 /ul (Negative); Protein-Dipstick 100 mg/dl (Negative); Specific Gravity, Urine 1.025 (1.002-1.030); Urine Bilirubin Dipstick Negative (Negative); Urine Clarity Sl. Cloudy (Clear); Urine Urobilinogen Normal (Normal)
[2021-09-21 17:36] LABS: Lactic Acid 1.6 mmol/L (0.4-1.9)
[2021-09-21 17:42] LABS: Bacteria 3+ /hpf (None Seen); White Blood Cells 25-50 SEEN /hpf (0-5)
[2021-09-21 17:43] LABS: Red Blood Cells-Urine 0-5 SEEN /hpf (0-5)
[2021-09-21] MEDS: Ceftriaxone 1 GM/50 ML BAG IV (18:18)
--- NOTE | 2021-09-21 18:39 | ED.RN ---
due to difficulty obtaining blood dr agreed to 1 set of blood cultures. maryanne urban rn
--- NOTE | 2021-09-21 19:31 | HP.PCM_ITS ---
HPI - General General Date of Admission: 09/21/21 HPI Narrative FARRAH BONILLA, is a 81 F who presents to the emergency room due to declining functional status by ambulance. Patient is a very poor historian and is oriented to place and name. The patient has had reportedly worsening shortness of breath and did test positive for Covid virus. She also tested positive for urinary tract infection but is unable to report if she is having dysuria. She is able to maintain her pulse oxygenation in the 90% range with oxygen support here in the hospital however prior to arrival she was in the 83% range. She will be admitted for further management of Covid virus infection and urinary tra ct infection. [facility] Medical History (Updated 09/21/21 @ 19:[address] Manuel Palmer MD) Anxiety Back pain Cancer Diabetes Hypertension Osteopenia Home Medications aspirin 81 mg PO DAILY@0800 09/15/13 [History Last Taken 05/16/17] citalopram 20 mg tablet 20 mg PO DAILY #90 tablet 10/28/20 [Rx Last Taken Unknown] lisinopril 5 mg tablet 5 mg PO DAILY #90 tablet 01/27/21 [Rx Last Taken Unknown] arm brace #2 each 02/20/21 [Rx Last Taken Unknown] multivitamin 1 tablet PO DAILY 02/20/21 [History Last Taken Unknown] Allergy/AdvReac Type Severity Reaction Status Date / Time codeine AdvReac Other Verified 09/21/21 14:24 Family History Mother Hypertension Cancer lymphoma Diabetes Sister Colon cancer Brother CVA (cerebral vascular accident) Social History Smoking Status: Never smoker alcohol intake: current alcohol intake frequency: holidays/special occasions only Alcohol type: beer substance use type: does not use what type of physical activity do you participate in: walking frequency: 3-4 times per week ROS Review of Systems ROS Unobtainable: due to mental status Vital Signs Vital Signs Vital Signs: 09/21/21 14:25 09/21/21 14:28 09/21/21 15:28 Temperature 99 F 99 F Temperature Source Temporal Temporal Pulse Rate 99 99 99 Respiratory Rate 24 H 24 H 21 H Blood Pressure 136/111 H 136/111 H 127/67 H Blood Pressure Mean 119 119 87 Pulse Ox 92 92 95 Oxygen Delivery Method Room Air Room Air Room Air Oxygen Flow Rate (L/min) 09/21/21 16:08 09/21/21 17:11 09/21/21 17:40 Temperature 99.0 F Temperature Source Temporal Pulse Rate 94 90 88 Respiratory Rate 16 22 H 25 H Blood Pressure 120/63 122/61 H 122/61 H Blood Pressure Mean 82 81 81 Pulse Ox 96 95 95 Oxygen Delivery Method Room Air Nasal Cannula Nasal Cannula Oxygen Flow Rate (L/min) 2 2 09/21/21 18:19 09/21/21 19:07 Temperature Temperature Source Pulse Rate 91 86 Respiratory Rate 26 H 25 H Blood Pressure 113/60 115/60 Blood Pressure Mean 77 78 Pulse Ox 97 97 Oxygen Delivery Method Nasal Cannula Nasal Cannula Oxygen Flow Rate (L/min) 2 2 Weight Weight: 205 lb 0.478 oz Body Mass Index (BMI) 35.2 Physical Exam Const alert Orientation / Consciousness: confused and lethargic HEENT head/scalp atraumatic Eyes PERRL Neck supple Lymph Lymphatic: no lymphadenopathy noted Resp Auscultation: diminished lung sounds bilateral Cardio regular rate, regular rhythm, S1 normal heart sound and S2 normal heart sound GI normal to inspection, nondistended, normoactive bowel sounds Extremity no clubbing, cyanosis or edema Skin General Skin Exam: turgor normal Neuro CN's II-XII intact bilaterally Psych Psych Narrative: unable to assess Results Lab / Micro Data Result Diagrams: 09/21/21 16:32 09/21/21 16:32 Labs: Laboratory Results - last 24 hr 09/21/21 16:32: WBC 5.1, RBC 5.63 H, Hgb 15.7 H, Hct 46.4, MCV 82.4, MCH 27.9, MCHC 33.8, RDW Std Deviation 38.1, RDW Coeff of Te 12.5, Plt Count 130 L, MPV 12.7 H, Immature Gran % (Auto) 0.200, Neut % (Auto) 78.2 H, Lymph % (Auto) 12.1 L, [place] % (Auto) 9.3, Eos % (Auto) 0.0, Baso % (Auto) 0.2, Absolute Neuts (auto) 4.0, Absolute Lymphs (auto) 0.62 L, Nucleated RBC % 0 09/21/21 16:32: Sodium 136, Potassium 4.3, Chloride 103, Carbon Dioxide 25.0, Anion Gap 8, BUN 38 H, Creatinine 1.41 H, Estim Creat Clear Calc 27.02, Est GFR (MDRD) Af Amer 46 L, Est GFR (MDRD) Non-Af 38 L, BUN/Creatinine Ratio 27.0 H, Glucose 122 H, Calcium 8.7, Total Bilirubin 0.40, AST 57 H, ALT 43, Alkaline Phosphatase 60, Troponin I High Sens 21, Total Protein 8.1, Albumin 3.3, Glob ulin 4.8 H, Albumin/Globulin Ratio 0.7 L 09/21/21 16:32: Lactic Acid 1.6 09/21/21 16:57: Urine Color Yellow, Urine Clarity Sl. Cloudy, Urine pH 5.0, Ur Specific [place] 1.025, Urine Protein 100 H, Urine Glucose (UA) Normal, Urine Ketones 50 H, Urine Occult Blood 150 H, Urine Nitrite Positive H, Urine Bilirubin Negative, Urine Urobilinogen Normal, Ur Leukocyte Esterase 100 H, Urine RBC 0-5 SEEN, Urine WBC 25-50 SEEN, Ur Squamous Epith Cells 0 SEEN, Urine Bacteria 3+, Urine Mucus 0 SEEN Micro: Microbiology 09/21/21 15:10 Nasal Secretion SARS-CoV-2 Antigen (Rapid) - Final SARS-CoV-2 (COVID 19) Radiology Impression Chest X-Ray 09/21/21 14:57 IMPRESSION: Mild atelectasis right lower lung zone. Electronically Signed: Dionicio Cha MD at 16:26 EST Tel , Service support , Assessment & Plan Assessment/Plan (1) Pneumonia due to 2019-nCoV: (2) Urinary tract infection: (3) Declining functional status: (4) Inability to ambulate due to multiple joints: PLAN: 1.?Covid pneumonia?admit patient to isolation unit on general medical floor, start Decadron and oxygen support, routine Covid order set. Patient is stable at this time 2. Urinary tract infection?continue Rocephin daily, repeat CBC BMP in the morning 3. Declining functional status and difficulty with ambulation?we will initiate physical therapy to evaluate and treat for activities of daily living, will need to consult case management for discharge planning as we have no patient advocate to describe the home environment at this time, patient spencer has confusion and is not capable of making end-of-life decisions at this time therefore she will remain full code until we discussed this with family 4. DVT prophylaxis?low molecular weight heparin Charges/Coding Visit Charges Inpatient E&M: 97158 Init Hosp L3
[2021-09-21] MEDS: dexAMETHasone 4 MG/ML Vial 6 MG IV (19:37)
[2021-09-21 20:25] LABS: Fibrinogen 504 mg/dl (203-444)
--- NOTE | 2021-09-21 20:31 | PCS.PANDOC ---
PANDEMIC DOCUMENTATION INITIATED: Date: 06/15/2021 Time: 190
[2021-09-21 20:42] LABS: Procalcitonin 0.12 ng/mL (0.00-0.09)
[2021-09-21 20:57] LABS: CPK Total, Creatine Kinase 143 U/L (26-192)
[2021-09-21 21:03] LABS: D-Dimer Quantitative (DVT/PE) 2.35 FEU/ug/m (0.27-0.49)
[2021-09-21] MEDS: 0.9% Saline Lock 10 ML Syringe IV (21:09)
[2021-09-21] MEDS: 0.9% Normal Saline 1,000 ML 75 ML IV (21:09)
[2021-09-21] MEDS: Enoxaparin 100 MG/ML Syringe 90 MG SC (22:03)
[2021-09-22] VITALS (8 sets, daily range): BP systolic 110–130; BP diastolic 56–78; PULSE 62–70; RESP 16–18; TEMP 36.4–36.9; O2SAT 93–96
[2021-09-22 06:16] LABS: Absolute Lymphocyte Count 0.72 X10^3/uL (0.83-4.51); Absolute Neutrophil Count 2.3 X10^3/uL (2.0-7.7); Basophil# 0.01 X10^3/uL; Basophil% 0.3 % (0-1); Hematocrit 44.5 % (37-47); Hemoglobin 14.9 g/dL (12.0-15.0); Lymphocyte # 0.72 X10^3/ul (0.83-4.51); Lymphocyte % 22.7 % (19-41); Mean Corp Hgb Conc 33.5 g/dL (32-36); Mean Corpuscular Hgb 27.7 pg (27.0-32.0); Mean Corpuscular Volume 82.9 fL (81-99); Mean Platelet Vol. 13.4 fl (6.2-12.0); Monocyte# 0.15 X10^3/uL; Monocyte% 4.7 % (0-10); NRBC Flagged by Analyzer 0 % (0-5); Neutrophil # 2.29 X10^3/uL (2.7-7.7); Neutrophil % 72.3 % (47-70); Platelet Count 117 K/mm3 (150-450); RBC Distribution Width CV 12.8 % (11.6-14.6); Red Blood Count 5.37 M/mm3 (4.2-5.4); White Blood Count 3.2 K/mm3 (4.4-11.0)
[2021-09-22 06:31] LABS: International Normalized Ratio 1.1; Prothrombin Time (Protime)PT. 13.8 SECONDS (11.7-14.9)
[2021-09-22 06:55] LABS: Anion Gap 9 (5-15); BUN 40 mg/dL (7-18); Calcium,Total 8.5 mg/dL (8.5-10.1); Chloride 106 mmol/L (98-107); Creatinine, Serum 1.08 mg/dL (0.55-1.02); EST Glomerular Filtration Rate 52 mL/min (>60); Est Glom Filt Rate - Afr Amer 63 mL/min (>60); Estimated Creatinine Clearance 35.28 ml/min; Glucose 141 mg/dL (74-106); Sodium Level 137 mmol/L (136-145)
--- NOTE | 2021-09-22 07:16 | PN.HOSP_ITS ---
Subjective Subjective The patient was admitted with shortness of breath, declining functional status and was brought by ambulance, EMS. Patient tested positive for Covid SARS-CoV-2 rapid antigen. I think patient has dementia but she told me she does not have burning micturition. She had UTI to 3 years ago. Since her history is not very confirmatory, and UA positive of LE and nitrite, decided on treating the UTI. She is admitted with hypoxia, 83% on room air. Objective Data Objective Data Vital Signs: Vital Signs Temp Pulse Resp BP Pulse Ox 97.8 F 70 18 118/73 96 09/22/21 01:54 09/22/21 01:54 09/22/21 01:54 09/22/21 01:54 09/22/21 01:54 Oxygen Flow Rate (L/min) 2 Oxygen Delivery Method Nasal Cannula Weight: 199 lb 15.348 oz Body Mass Index (BMI) 34.3 Intake & Output: Intake and Output for Last 24 Hours 09/20/21 09/21/21 09/22/21 23:59 23:59 23:59 Intake Total 550 / 550 Output Total 0 / 0 Balance 550 / 550 0 / 0 Lab / Micro Data Result Diagrams: 09/22/21 05:20 09/22/21 05:20 Labs: Laboratory Results - last 24 hr 09/21/21 16:32: WBC 5.1, RBC 5.63 H, Hgb 15.7 H, Hct 46.4, MCV 82.4, MCH 27.9, MCHC 33.8, RDW Std Deviation 38.1, RDW Coeff of Te 12.5, Plt Count 130 L, MPV 12.7 H, Immature Gran % (Auto) 0.200, Neut % (Auto) 78.2 H, Lymph % (Auto) 12.1 L, [place] % (Auto) 9.3, Eos % (Auto) 0.0, Baso % (Auto) 0.2, Absolute Neuts (auto) 4.0, Absolute Lymphs (auto) 0.62 L, Nucleated RBC % 0 09/21/21 16:32: Sodium 136, Potassium 4.3, Chloride 103, Carbon Dioxide 25.0, Anion Gap 8, BUN 38 H, Creatinine 1.41 H, Estim Creat Clear Calc 27.02, Est GFR (MDRD) Af Amer 46 L, Est GFR (MDRD) Non-Af 38 L, BUN/Creatinine Ratio 27.0 H, Glucose 122 H, Calcium 8.7, Total Bilirubin 0.40, AST 57 H, ALT 43, Alkaline Phosphatase 60, Troponin I High Sens 21, Total Protein 8.1, Albumin 3.3, Globulin 4.8 H, Albumin/Globulin Ratio 0.7 L 09/21/21 16:32: Lactic Acid 1.6 09/21/21 16:32: Fibrinogen 504 H, D-Dimer Quant (PE/DVT) 2.35 H* 09/21/21 16:32: Total Creatine Kinase 143, Troponin I High Sens Cancelled, C- React Prot Ext Range 35.90 H 09/21/21 16:32: B-Natriuretic Peptide 41.0 09/21/21 16:32: Procalcitonin 0.12 H 09/21/21 16:57: Urine Color Yellow, Urine Clarity Sl. Cloudy, Urine pH 5.0, Ur Specific [place] 1.025, Urine Protein 100 H, Urine Glucose (UA) Normal, Urine Ketones 50 H, Urine Occult Blood 150 H, Urine Nitrite Positive H, Urine Bilirubin Negative, Urine Urobilinogen Normal, Ur Leukocyte Esterase 100 H, Urine RBC 0-5 SEEN, Urine WBC 25-50 SEEN, Ur Squamous Epith Cells 0 SEEN, Urine Bacteria 3+, Urine Mucus 0 SEEN 09/22/21 05:20: WBC 3.2 L, RBC 5.37, Hgb 14.9, Hct 44.5, MCV 82.9, MCH 27.7, MCHC 33.5, RDW Std Deviation 39.0, RDW Coeff of Te 12.8, Plt Count 117 L, MPV 13.4 H, Immature Gran % (Auto) 0.000, Neut % (Auto) 72.3 H, Lymph % (Auto) 22.7, [facility] [facility] % (Auto) 4.7, Eos % (Auto) 0.0, Baso % (Auto) 0.3, Absolute Neuts (auto) 2.3, Absolute Lymphs (auto) 0.72 L, Nucleated RBC % 0 09/22/21 05:20: PT 13.8, INR 1.1 09/22/21 05:20: Sodium 137, Potassium 4.0, Chloride 106, Carbon Dioxide 22.0, Anion Gap 9, BUN 40 H, Creatinine 1.08 H, Estim Creat Clear Calc 35.28, Est GFR (MDRD) Af Amer 63, Est GFR (MDRD) Non-Af 52 L, BUN/Creatinine Ratio 37.0 H, Glucose 141 H, Calcium 8.5 Micro: Microbiology 09/21/21 15:10 Nasal Secretion SARS-CoV-2 Antigen (Rapid) - Final SARS-CoV-2 (COVID 19) Radiography Diagnostic Testing: Radiology Impression Chest X-Ray 09/21/21 14:57 IMPRESSION: Mild atelectasis right lower lung zone. Electronically Signed: Dionicio Cha MD at 16:26 EST Tel , Service support , Physical Exam Narrative General: Alert, Oriented x3, Cooperative HEENT: Atraumatic, PERRLA, EOMI, Normocephalic Oral: No Gingival or Mucosal Lesions/ Ulcerations Neck: Supple, No JVD, Negative Carotid Bruits Lungs: Air entry diminished in bilateral lung bases. No crepitation/rhonchi Cardiovascular: Regular rate, Regular Rhythm, Normal S1, Normal S2, No murmurs Abdomen: Bowel Sounds Present, Soft, Non Tender, Non-Distended : No renal angle or suprapubic tenderness. Extremities: No edema, Capillary Refill Less than 3 Seconds Skin: No rashes, No breakdown Musculoskeletal: Difficulty in ambulation. No Tenderness to Palpation of Joints or Extremities Neurological: Cranial nerves II-XII grossly intact, DTR 2+/4 and Symmetrical, Neuro grossly intact Psych/Mental Status: Mild to moderate cognitive deficit/dementia Assessment & Plan Assessment/Plan (1) Pneumonia due to 2019-nCoV: (2) Urinary tract infection: (3) Declining functional status: (4) Inability to ambulate due to multiple joints: PLAN: 1.?Covid pneumonia?patient is admitted to medical floor. On Decadron and oxygen support. ID consult reviewed and appreciated. Exact date of onset of symptoms is unclear but most of the symptoms including fever chills, shortness of breath and cough has resolved. Currently she has loss of taste and smell. 2. Possible urinary tract infection?although she denies burning micturition but detailed history of low-grade tract symptoms is not clear. LE and nitrite positive. Continue Rocephin daily, repeat CBC BMP in the morning 3. Declining functional status and difficulty with ambulation: Physical therapy to evaluate and treat for activities of daily living, will need to consult case management for discharge planning as we have no patient advocate to describe the home environment at this time, patient johanna has confusion and is not capable of making end-of-life decisions at this time therefore she will remain full code until we discussed this with family 4. DVT prophylaxis?low molecular weight heparin Charges/Coding Visit Charges Inpatient E&M: 66647 Subs Hosp L2
[2021-09-22] MEDS: Citalopram 20 MG Tablet PO (08:37)
[2021-09-22] MEDS: Multivitamins,Therapeutic Tablet 1 TABLET PO (08:37)
[2021-09-22] MEDS: Lisinopril 5 MG Tablet PO (08:37)
[2021-09-22] MEDS: dexAMETHasone 10 MG/ML Vial 6 MG IV (08:37)
[2021-09-22] MEDS: Aspirin 81 MG TAB.CHEW PO (08:37)
[2021-09-22] MEDS: Enoxaparin 100 MG/ML Syringe 90 MG SC ×2 (08:38→20:53)
[2021-09-22] MEDS: 0.9% Normal Saline 1,000 ML 75 ML IV ×2 (10:27→23:49)
[2021-09-22] MEDS: Ceftriaxone 1 GM/50 ML BAG IV (10:27)
--- NOTE | 2021-09-22 10:31 | PCM.CONS.GEN ---
Assessment & Plan Assessment/Plan (1) Pneumonia due to 2019-nCoV: PLAN: Covid with hypoxia. On ceftriaxone for possible uti. Unvaccinated. She is not sure of timing of symptoms, but suspect over 10 days given resolution of most of her acute symptoms and low level O2 reqs. Cont dex for 10 day course. ucx pending. Recommended vaccine once she is out of iso. Family is being contacted. Will follow, thank you, stefan nursing HPI Consult Data Date of Consult: 09/22/21 HPI Narrative HPI Narrative: FARRAH BONILLA, is a 81 F who presented with altered mental status, dyspnea, hypoxia. Reports being sick for a while, had fever, chills, headache, aches, diarrhea which have since resolved. Still with loss of sense of taste. Lives with son. Taken to ED by EMS last night, covid (+), admitted on dex and ceftriaxone. Denies any dysuria. Feeling better, able to answer questions this AM. Full ROS performed and neg except as noted above. [facility] Medical History Anxiety Back pain Cancer Diabetes Hypertension Osteopenia Home Medications aspirin 81 mg PO DAILY@0800 09/15/13 [History Last Taken 05/16/17] citalopram 20 mg tablet 20 mg PO DAILY #90 tablet 10/28/20 [Rx Last Taken Unknown] lisinopril 5 mg tablet 5 mg PO DAILY #90 tablet 01/27/21 [Rx Last Taken Unknown] arm brace #2 each 02/20/21 [Rx Last Taken Unknown] multivitamin 1 tablet PO DAILY 02/20/21 [History Last Taken Unknown] Allergy/AdvReac Type Severity Reaction Status Date / Time codeine AdvReac Other Verified 09/21/21 14:24 Family History Mother Hypertension Cancer lymphoma Diabetes Sister Colon cancer Brother CVA (cerebral vascular accident) Social History Smoking Status: Never smoker alcohol intake: current alcohol intake frequency: holidays/special occasions only Alcohol type: beer substance use type: does not use what type of physical activity do you participate in: walking frequency: 3-4 times per week Physical Exam Const alert and no apparent distress General Appearance: cooperative HEENT normocephalic and head/scalp atraumatic Eyes PERRL and EOMs intact bilaterally Neck supple and No nodes Resp clear to auscultation bilaterally Auscultation: diminished lung sounds Cardio regular rate and regular rhythm GI normal to inspection, nondistended, normoactive bowel sounds Extremity no clubbing, cyanosis or edema Skin no rashes or lesions noted Neuro CN's II-XII intact bilaterally Lab / Micro Data Result Diagrams: 09/22/21 05:20 09/22/21 05:20 Labs: Laboratory Results - last 24 hr 09/21/21 16:32: WBC 5.1, RBC 5.63 H, Hgb 15.7 H, Hct 46.4, MCV 82.4, MCH 27.9, MCHC 33.8, RDW Std Deviation 38.1, RDW Coeff of Te 12.5, Plt Count 130 L, MPV 12.7 H, Immature Gran % (Auto) 0.200, Neut % (Auto) 78.2 H, Lymph % (Auto) 12.1 L, [place] % (Auto) 9.3, Eos % (Auto) 0.0, Baso % (Auto) 0.2, Absolute Neuts (auto) 4.0, Absolute Lymphs (auto) 0.62 L, Nucleated RBC % 0 09/21/21 16:32: Sodium 136, Potassium 4.3, Chloride 103, Carbon Dioxide 25.0, Anion Gap 8, BUN 38 H, Creatinine 1.41 H, Estim Creat Clear Calc 27.02, Est GFR (MDRD) Af Amer 46 L, Est GFR (MDRD) Non-Af 38 L, BUN/Creatinine Ratio 27.0 H, Glucose 122 H, Calcium 8.7, Total Bilirubin 0.40, AST 57 H, ALT 43, Alkaline Phosphatase 60, Troponin I High Sens 21, Total Protein 8.1, Albumin 3.3, Globulin 4.8 H, Albumin/Globulin Ratio 0.7 L 09/21/21 16:32: Lactic Acid 1.6 09/21/21 16:32: Fibrinogen 504 H, D-Dimer Quant (PE/DVT) 2.35 H* 09/21/21 16:32: Total Creatine Kinase 143, Troponin I High Sens Cancelled, C-React Prot Ext Range 35.90 H 09/21/21 16:32: B-Natriuretic Peptide 41.0 09/21/21 16:32: Procalcitonin 0.12 H 09/21/21 16:57: Urine Color Yellow, Urine Clarity Sl. Cloudy, Urine pH 5.0, Ur Specific [place] Cbc Base 1.025, Urine Protein 100 H, Urine Glucose (UA) Normal, Urine Ketones 50 H, Urine Occult Blood 150 H, Urine Nitrite Positive H, Urine Bilirubin Negative, Urine Urobilinogen Normal, Ur Leukocyte Esterase 100 H, Urine RBC 0-5 SEEN, Urine WBC 25-50 SEEN, Ur Squamous Epith Cells 0 SEEN, Urine Bacteria 3+, Urine Mucus 0 SEEN 09/22/21 05:20: WBC 3.2 L, RBC 5.37, Hgb 14.9, Hct 44.5, MCV 82.9, MCH 27.7, MCHC 33.5, RDW Std Deviation 39.0, RDW Coeff of Te 12.8, Plt Count 117 L, MPV 13.4 H, Immature Gran % (Auto) 0.000, Neut % (Auto) 72.3 H, Lymph % (Auto) 22.7, [place] % (Auto) 4.7, Eos % (Auto) 0.0, Baso % (Auto) 0.3, Absolute Neuts (auto) 2.3, Absolute Lymphs (auto) 0.72 L, Nucleated RBC % 0 09/22/21 05:20: PT 13.8, INR 1.1 09/22/21 05:20: Sodium 137, Potassium 4.0, Chloride 106, Carbon Dioxide 22.0, Anion Gap 9, BUN 40 H, Creatinine 1.08 H, Estim Creat Clear Calc 35.28, Est GFR (MDRD) Af Amer 63, Est GFR (MDRD) Non-Af 52 L, BUN/Creatinine Ratio 37.0 H, Glucose 141 H, Calcium 8.5 Micro: Microbiology 09/21/21 16:57 Urine, Clean Catch Urine Culture - Preliminary Presumptive E. coli 09/21/21 15:10 Nasal Secretion SARS-CoV-2 Antigen (Rapid) - Final SARS-CoV-2 (COVID 19) Radiology Impression Chest X-Ray 09/21/21 14:57 IMPRESSION: Mild atelectasis right lower lung zone. Electronically Signed: Dionicio Cha MD at 16:26 EST Tel , Service support ,
--- NOTE | 2021-09-22 11:13 | CASEMGMT ---
Social Work Note Per pharmacy technician program director questions, pt has not completed HCPOA or LW and denied wanting additional information. Maricarmen Grant NEUROLOGICAL SURGEON, [place] MACHINE OPERATOR
--- NOTE | 2021-09-22 11:59 | CASEMGMT ---
Addendum entered by Amanda Hill 09/22/21 14:46: [facility] has accepted pt for SOC on Tuesday. Addendum entered by Amanda Hill 09/22/21 14:28: Received tc from [facility], unable to accept pt. TC to [facility], spoke with Kelsea she will review referral. Original Note: MARY COSTA Assessment: Face to Face with pt for initial transition planning/care coordination assessment. MARY COSTA introduced self and role at [facility], pt voices understanding and consents to assessment. Pt is A/O x4 and answers all questions appropriately at this time. Pt sitting up in the chair on RA in no distress. Pt slow to respond to questions but able to answer them. Care providers, pharmacy, and demographics verified/updated. Admitting Dx: COVID 19 PCP:Jared Specialists:Pt denies having any specialists. She states she saw a doctor one time when did not want her to drive any longer but is unsure of the name of the doctor. [facility]erred [facility]acy: [facility] Insurance: [employer] [facility] Prescription Benefit: yes LW/HPOA: Pt states she does have a LW/DPOA and her dtr Marly Zambrano is her DPOA. She is aware that it is not on file at [facility] and she may have it brought in to be scanned into the chart. LNOK: Marly Zambrano, dtr; Janet Granda, granddtr; Kailash Priest, son Living Arrangements: Pt lives with son, his and grandson in a two story house with no steps to enter. Pt states she does not use the upstairs. Pt reports she was I in ADL's prior to this illness. Transportation: Pt drives self and denies concerns with transportation. DME/HHC/SNF: Pt has a cane, shower chair and walker. Pt reports she has had HHC a long time ago, but is unaware of the name of the agency. Pt denies SNF stays stating I don't ever want to go there, I think that is what killed my . Pt could not remember where she was tested although in the notes, it states result is in [place]. Pt is on RA and has no preference of O2 company should she need home O2. Provided her with a local in network list of DME companies. Pt states her family is not covid positive and she can quarantine from them using a separate bedroom but there is only one bathroom. Pt states they can supply her with groceries and supplies. Pt states she does feel weak, discussed HHC options. Pt is agreeable to HHC but would like this RN CM to call her dtr Marly for her to pick the agency. Pt states no concerns with going home at time of dc. Pt states no further concerns/needs. CM to follow. Advised pt to ask CM if any further question/concerns/needs arise, voices understanding. Pt Goal: Home with HHC Plan: Home with HHC TC to pt dtr Marly Zambrano. She states that HHC would be good for pt and she would like pt to come home if at all possible. Provided her verbally of a list of HHC providers including quality and resource use data and consistent with the patient?s preferred geographic region, medical needs, and insurance network. The patient?s dtr preferred provider is [facility] [place] and [facility]. TC to Halina at [facility], referral faxed at this time. Will await acceptance.
[2021-09-23] VITALS (8 sets, daily range): BP systolic 93–137; BP diastolic 53–68; PULSE 60–96; RESP 16–18; TEMP 36.6–37.6; O2SAT 90–94
[2021-09-23] MEDS: 0.9% Saline Lock 10 ML Syringe IV ×2 (05:53→14:52)
[2021-09-23] MEDS: Aspirin 81 MG TAB.CHEW PO (09:22)
[2021-09-23] MEDS: Enoxaparin 100 MG/ML Syringe 90 MG SC ×2 (09:22→20:53)
[2021-09-23] MEDS: Lisinopril 5 MG Tablet PO (09:22)
[2021-09-23] MEDS: Citalopram 20 MG Tablet PO (09:22)
[2021-09-23] MEDS: Ceftriaxone 1 GM/50 ML BAG IV (09:22)
[2021-09-23] MEDS: Multivitamins,Therapeutic Tablet 1 TABLET PO (09:22)
[2021-09-23] MEDS: dexAMETHasone 10 MG/ML Vial 6 MG IV (09:22)
[2021-09-23 09:55] LABS: Bedside Glucose 110 mg/dL (70-110)
--- NOTE | 2021-09-23 10:53 | CT_ITS ---
STUDY: CTA CHEST REASON FOR EXAM: Female, 81 years old. High D-dimer, AMS, R/O ACS RADIATION DOSAGE (If Supplied By Facility): CTDIvol = ( 14.89 ) mGy, DLP = ( 1326.49 ) mGycm TECHNIQUE: The examination was performed with the intravenous administration of IV 100mL Isovue-370. Post-processing of the angiographic images was performed, with multiplanar reformation and 3D reconstruction. Individualized dose optimization techniques were used for this CT. COMPARISON: None. FINDINGS: Normal enhancement of the main pulmonary artery and right and left pulmonary arteries. Normal enhancement of the bilateral peripheral pulmonary arteries. There is no demonstrated pulmonary embolism. There is atherosclerotic calcification of the aortic arch with tortuosity. There is no demonstrated aortic dissection. Heart is mildly enlarged. Normal mediastinum. Normal hilar regions. Multifocal groundglass and interstitial infiltrates with features commonly reported with COVID pneumonia. Normal chest wall structures. There are degenerative changes of thoracic spine. Normal visualized upper abdomen. CT/CTA Chest W/WO Contrast IMPRESSION: 1. No central or segmental pulmonary embolism. 2. Multifocal infiltrates with features commonly reported with COVID pneumonia. Electronically Signed: Jean Pierre Constantino MD ([place]) at 11:56 EST , Service support ,
--- NOTE | 2021-09-23 10:53 | CT_ITS ---
STUDY: CT BRAIN WITHOUT CONTRAST REASON FOR EXAM: Female, 81 years old. CONFUSION, AMS RADIATION DOSAGE (If Supplied By Facility): CTDIvol = ( 44.99 ) mGy, DLP = ( 829.85 ) mGycm TECHNIQUE: Transaxial CT imaging of the brain was performed without administration of intravenous contrast material. Individualized dose optimization techniques were used for this CT. COMPARISON: 02/11/2021 CT, 03/07/2021 MRI FINDINGS: Normal soft tissue structures. Normal calvarium. There is mild cerebral atrophy with widening of the extra-axial spaces and ventricular dilatation. There are areas of decreased attenuation within the white matter tracts of the supratentorial brain, consistent with microvascular disease changes. Normal basal ganglia and thalami. Normal brainstem. Normal cerebellum. Focal area of hyperdensity of the right frontal lobe correlates to cavernous angioma evident on MRI, unchanged when compared [id number] with prior CT. There is no intracranial hemorrhage. There are no findings of an acute ischemic infarction. Normal visualized paranasal sinuses. CT/Brain/Head without Contrast IMPRESSION: 1. No acute intracranial hemorrhage or mass effect. 2. Central parenchymal volume loss. White matter changes that are nonspecific but most commonly associated with chronic small vessel ischemic disease. 3. 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 Electronically Signed: Jean Pierre Constantino MD ([place]) at 12:40 EST , Service support ,
--- NOTE | 2021-09-23 10:55 | PN.HOSP_ITS ---
Subjective Subjective The patient is more confused and disoriented today which is changed from yesterday. She does not know what is wrong with her. Mainly complaining of abdominal pain but unclear. Her pulse ox is normal on room air. On antibiotic for possible UTI. D-dimer elevated. Labs, CT angiogram and CT head ordered Objective Data Objective Data Vital Signs: Vital Signs Temp Pulse Resp BP Pulse Ox 99.7 F H 96 16 128/66 H 93 09/23/21 09:05 09/23/21 09:05 09/23/21 09:05 09/23/21 09:05 09/23/21 09:05 Oxygen Flow Rate (L/min) 2 Oxygen Delivery Method Room Air Weight: 199 lb 15.348 oz Body Mass Index (BMI) 34.3 Intake & Output: Intake and Output for Last 24 Hours 09/21/21 09/22/21 09/23/21 23:59 23:59 23:59 Intake Total 550 / 550 2716.25 / 2716.25 766.25 / 766.25 Output Total 800 / 1000 200 / 200 Balance 550 / 550 1916.25 / 1716.25 566.25 / 566.25 Lab / Micro Data Result Diagrams: 09/23/21 12:55 09/23/21 12:55 Labs: Laboratory Results - last 24 hr 09/23/21 09:21: POC Glucose 110 Micro: Microbiology 09/21/21 16:57 Urine, Clean Catch Urine Culture - Final Presumptive E. coli 09/21/21 15:10 Nasal Secretion SARS-CoV-2 Antigen (Rapid) - Final SARS-CoV-2 (COVID 19) Physical Exam Narrative As per the nursing staff, patient had good bowel movement. General: Confused, disoriented. Incoherent speech HEENT: Atraumatic, PERRLA, EOMI, Normocephalic Oral: No Gingival or Mucosal Lesions/ Ulcerations Neck: Supple, No JVD, Negative Carotid Bruits Lungs: Air entry diminished in bilateral lung bases. No crepitation/rhonchi Cardiovascular: Regular rate, Regular Rhythm, Normal S1, Normal S2, No murmurs Abdomen: Bowel Sounds Present, Soft, Non Tender, Non-Distended : No renal angle or suprapubic tenderness. Extremities: No edema, Capillary Refill Less than 3 Seconds Skin: No rashes, No breakdown Musculoskeletal: Difficulty in ambulation. No Tenderness to Palpation of Joints or Extremities Neurological: Cranial nerves II-XII grossly intact, DTR 2+/4 and Symmetrical, Neuro grossly intact Psych/Mental Status: Mild to moderate cognitive deficit/dementia Assessment & Plan Assessment/Plan (1) Pneumonia due to 2019-nCoV: (2) Urinary tract infection: (3) Declining functional status: (4) Inability to ambulate due to multiple joints: PLAN: 1.?Covid pneumonia?patient is admitted to medical floor. On Decadron and oxygen support. ID consult reviewed and appreciated. Exact date of onset of symptoms is unclear but most of the symptoms including fever chills, shortness of breath and cough has resolved. Currently she has loss of taste and smell. 09/23: Patient found encephalopathic most probably metabolic/infectious from COVID-19: CT head does not show acute change/intracranial hemorrhage or mass- effect. Chronic central parenchymal volume loss. Chest CTA was done and shows multifocal infiltrate consistent with COVID-19 pneumonia. No central or segmental PE. Patient has mild non-anion gap metabolic acidosis. IV fluid changed to D5 half NS. Normal saline discontinued. Patient on room air. 2. Possible urinary tract infection?although she denies burning micturition but detailed history of low-grade tract symptoms is not clear. LE and nitrite positive. Continue Rocephin daily, repeat CBC BMP in the morning 3. Declining functional status and difficulty with ambulation: Physical therapy to evaluate and treat for activities of daily living, will need to consult case management for discharge planning as we have no patient advocate to describe the home environment at this time, patient spencer has confusion and is not capable of making end-of-life decisions at this time therefore she will remain full code until we discussed this with family 4. DVT prophylaxis?low molecular weight heparin, therapeutic dose because of high D-dimer Patient has advanced home health care so if her confusion/encephalopathy resolves tomorrow, can discharge. Microbiology Past 72 Hours 09/21/21 16:57 Urine, Clean Catch Urine Culture - Final Presumptive E. coli 09/21/21 15:10 Nasal Secretion SARS-CoV-2 Antigen (Rapid) - Final SARS-CoV-2 (COVID 19) Laboratory Results 09/23/21 09:21: POC Glucose 110 09/23/21 12:55: WBC 7.5, RBC 4.86, Hgb 13.5, Hct 39.6, MCV 81.5, MCH 27.8, MCHC 34.1, RDW Std Deviation 38.2, RDW Coeff of Te 12.8, Plt Count 134 L, MPV 13.0 H , Immature Gran % (Auto) 0.400, Neut % (Auto) 85.0 H, Lymph % (Auto) 8.8 L, [place] % (Auto) 5.7, Eos % (Auto) 0.0, Baso % (Auto) 0.1, Absolute Neuts (auto) 6.4, Absolute Lymphs (auto) 0.66 L, Nucleated RBC % 0 09/23/21 12:55: Sodium 139, Potassium 4.0, Chloride 108 H, Carbon Dioxide 20.0 L , Anion Gap 11, BUN 36 H, Creatinine 0.97, Estim Creat Clear Calc 39.28, Est GFR (MDRD) Af Amer 71, Est GFR (MDRD) Non-Af 59 L, BUN/Creatinine Ratio 37.2 H, Glucose 137 H, Calcium 7.9 L, Magnesium 2.2 Clinical Impression(s) from Imaging Studies Chest X-Ray 09/21/21 14:57 IMPRESSION: Mild atelectasis right lower lung zone. Electronically Signed: Dionicio Cha MD at 16:26 EST Tel , Service support , Brain CT 09/23/21 10:53 IMPRESSION: 1. No acute intracranial hemorrhage or mass effect. 2. Central parenchymal volume loss. White matter changes that are nonspecific but most commonly associated with chronic small vessel ischemic disease. 3. 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 Electronically Signed: Jean Pierre Constantino MD ([place]) at 12:40 EST , Service support , Chest CTA 09/23/21 10:53 IMPRESSION: 1. No central or segmental pulmonary embolism. 2. Multifocal infiltrates with features commonly reported with COVID pneumonia. Electronically Signed: Jean Pierre Constantino MD ([place]) at 11:56 EST , Service support , Charges/Coding Visit Charges Inpatient E&M: 96762 Subs Hosp L2
--- NOTE | 2021-09-23 11:26 | NURSING ---
pt transported off unit to CT scan via bed at this time
[2021-09-23 13:29] LABS: Absolute Lymphocyte Count 0.66 X10^3/uL (0.83-4.51); Absolute Neutrophil Count 6.4 X10^3/uL (2.0-7.7); Basophil# 0.01 X10^3/uL; Basophil% 0.1 % (0-1); Hematocrit 39.6 % (37-47); Hemoglobin 13.5 g/dL (12.0-15.0); Lymphocyte # 0.66 X10^3/ul (0.83-4.51); Lymphocyte % 8.8 % (19-41); Mean Corp Hgb Conc 34.1 g/dL (32-36); Mean Corpuscular Hgb 27.8 pg (27.0-32.0); Mean Corpuscular Volume 81.5 fL (81-99); Monocyte# 0.43 X10^3/uL; Monocyte% 5.7 % (0-10); NRBC Flagged by Analyzer 0 % (0-5); Neutrophil # 6.38 X10^3/uL (2.7-7.7); Platelet Count 134 K/mm3 (150-450); RBC Distribution Width CV 12.8 % (11.6-14.6); RBC Distribution Width SD 38.2 fl (35.1-43.9); Red Blood Count 4.86 M/mm3 (4.2-5.4); White Blood Count 7.5 K/mm3 (4.4-11.0)
[2021-09-23 13:52] LABS: Anion Gap 11 (5-15); BUN 36 mg/dL (7-18); BUN/Creat Ratio 37.2 RATIO (10-20); Calcium,Total 7.9 mg/dL (8.5-10.1); Chloride 108 mmol/L (98-107); Creatinine, Serum 0.97 mg/dL (0.55-1.02); EST Glomerular Filtration Rate 59 mL/min (>60); Est Glom Filt Rate - Afr Amer 71 mL/min (>60); Estimated Creatinine Clearance 39.28 ml/min; Glucose 137 mg/dL (74-106); Magnesium 2.2 mg/dL (1.6-2.6); Sodium Level 139 mmol/L (136-145)
[2021-09-23] MEDS: Dext 5%-0.45% NS 1,000 ML 50 ML IV (14:52)
[2021-09-24] VITALS (11 sets, daily range): BP systolic 92–129; BP diastolic 51–65; PULSE 62–95; RESP 18–24; TEMP 36.6–36.9; O2SAT 86–94
--- NOTE | 2021-09-24 06:38 | PCM.PN.HOSP ---
Subjective Subjective Patient with no acute events overnight per self and per nursing report. Patient notes being significantly fatigued and still short of breath with movement with occasional cough. She denies any GI symptoms. She is more alert but very slow to respond. Patient denies fevers, chills, nausea, emesis, abdominal pain, chest pain or worsened dyspnea. Objective Data Objective Data Vital Signs: Vital Signs Temp Pulse Resp BP Pulse Ox 98.2 F 62 19 H 121/52 H 92 09/24/21 03:28 09/24/21 03:28 09/24/21 03:28 09/24/21 03:28 09/24/21 03:28 Oxygen Flow Rate (L/min) 2 Oxygen Delivery Method Nasal Cannula Weight: 199 lb 15.348 oz Body Mass Index (BMI) 34.3 Intake & Output: Intake and Output for Last 24 Hours 09/22/21 09/23/21 09/24/21 23:59 23:59 23:59 Intake Total 2716.25 / 2716.25 1700.00 / 1900.00 440 / 440 Output Total 800 / 1000 200 / 200 500 / 500 Balance 1916.25 / 1716.25 1500.00 / 1700.00 -60 / -60 Lab / Micro Data Result Diagrams: 09/24/21 07:10 09/24/21 07:10 Labs: Laboratory Results - last 24 hr 09/23/21 09:21: POC Glucose 110 09/23/21 12:55: WBC 7.5, RBC 4.86, Hgb 13.5, Hct 39.6, MCV 81.5, MCH 27.8, MCHC 34.1, RDW Std Deviation 38.2, RDW Coeff of Te 12.8, Plt Count 134 L, MPV 13.0 H, Immature Gran % (Auto) 0.400, Neut % (Auto) 85.0 H, Lymph % (Auto) 8.8 L, [place] % (Auto) 5.7, Eos % (Auto) 0.0, Baso % (Auto) 0.1, Absolute Neuts (auto) 6.4, Absolute Lymphs (auto) 0.66 L, Nucleated RBC % 0 09/23/21 12:55: Sodium 139, Potassium 4.0, Chloride 108 H, Carbon Dioxide 20.0 L, Anion Gap 11, BUN 36 H, Creatinine 0.97, Estim Creat Clear Calc 39.28, Est GFR (MDRD) Af Amer 71, Est GFR (MDRD) Non-Af 59 L, BUN/Creatinine Ratio 37.2 H, Glucose 137 H, Calcium 7.9 L, Magnesium 2.2 Micro: Microbiology 09/21/21 16:57 Urine, Clean Catch Urine Culture - Final Presumptive E. coli 09/21/21 15:10 Nasal Secretion SARS-CoV-2 Antigen (Rapid) - Final SARS-CoV-2 (COVID 19) Radiography Diagnostic Testing: Radiology Impression Brain CT 09/23/21 10:53 IMPRESSION: 1. No acute intracranial hemorrhage or mass effect. 2. Central parenchymal volume loss. White matter changes that are nonspecific but most commonly associated with chronic small vessel ischemic disease. 3. 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 Electronically Signed: Jean Pierre Constantino MD ([place]) at 12:40 EST , Service support , Chest CTA 09/23/21 10:53 IMPRESSION: 1. No central or segmental pulmonary embolism. 2. Multifocal infiltrates with features commonly reported with COVID pneumonia. Electronically Signed: Jean Pierre Constantino MD ([place]) at 11:56 EST , Service support , Physical Exam Narrative Physical Examination: General: Awake, alert, oriented x 3 and cooperative, seated upright at the medical surgical bedside, fatigued. Skin: Normal color, normal turgor, no icterus, no cyanosis. HEENT: AT/NC, EOMI, PERRLA, dry MM. Lungs: C diffusely diminished, greater bases, mild increased respiratory rate, no evidence of distress, no rales, ronchi or wheezing. Heart: Regular rate and rhythm; no gallop, rub audible. Abdomen: Soft, obese, NTTP, ND, distant hyperactive bowel sounds. Extremities: No cyanosis, clubbing, or edema. Neurological: Patient awake, alert, oriented as noted, cognitive function intact; pupils equally reactive to light and accommodation, cranial nerves II-XII grossly normal, moving all 4 extremities, no focal deficits, strength moderately to severely globally decreased secondary to acute presentation. Psychiatric: Affect appears fatigued, mildly flat, no acute evidence of depressive or anxiety feelings. Assessment & Plan Assessment/Plan (1) Pneumonia due to 2019-nCoV: (2) Urinary tract infection: QUALIFIERS: Hematuria presence: without hematuria Urinary tract infection type: acute cystitis Qualified Code(s): N30.00 - Acute cystitis without hematuria PLAN: The patient is an 81 y/o F w/ PMHx: HTN, HLD, Diabetes mellitus type II, Anxiety and Depression who presents to the [facility] ED on 09/21/21 with reported significant decline with frequent falls and notable encephalopathy unable to provide appropriate history upon initial presentation with pulse oximeter noted to be 83% on room air with eventual diagnosis of COVID as well as UTI. #1. Acute Hypoxia secondary to Acute Bilateral Pneumonia secondary to Acute Viral Syndrome, COVID-19 with unvaccinated status: Admitted to medical surgical floor, infectious disease consulted and agreed with continue Rocephin for possible UTI, given symptoms and presentation ID suspected that she was over 10 days of onset of Covid symptoms secondary to resolution of most of her acute symptoms and low level oxygen requirements, will maintain on oxygen with wean as tolerated to room air, PRN albuterol, HOB, IS parameters, initial Covid evaluation with elevated D-dimer with CTPA with no central or segmental pulmonary embolism with multifocal infiltrates consistent with Covid pneumonia, continue supportive care including q 2 hour turning including prone given no prone bed availability and judicious hydration, closely monitor for worsening status for ARDS and multiorgan failure, patient maintained on Decadron therapy, not candidate for remdesivir given timeline per ID. PT/OT/case visit consultations for discharge planning with current plan for discharge to home with home health potentially 09/25/2021. Will need oxygenation trial for discharge to home. Patient per current infectious disease recommendation would require quarantine of now 9 additional days with end date 10/02/21. #2. Acute E. Coli Urinary Tract Infection: UA upon ED evaluation remarkable, UCX with presumptive E. coli with near morel sensitivity, monitor I/Os, initially placed on IV Rocephin w/ transition as able pending sensitivities and speciation. Given ID is following will defer transition to their discretion otherwise would plan to transition to cefdinir regimen given sensitivities for BID dosing x 5 additional days. #3. Acute encephalopathy, multifactorial, secondary to acute UTI and acute Covid pneumonia with hypoxia as noted: CT brain with no acute intracranial hemorrhage or mass-effect, central parenchymal volume loss with white matter changes that are nonspecific likely associate with chronic small vessel ischemic change, small right frontal cavernous angioma incidentally noted, continue treatment of #1, #2, maintain on fall precautions, PT and OT consultations as well as case management for discharge planning. #4. Acute renal insufficiency: Secondary to acute presentation #1, #2. Admission BUN/Cr 38/1.41, prior baseline creatinine noted to be primarily 0.9-1.1, judiciously hydrated, avoid aggressive hydration given acute presentation #1, continue to trend renal function. 09/24/2021 BUN/creatinine 33/0.93, improving. #6. Incidental small right frontal cavernous angioma: Grossly appears stable, noted on follow-up CT of the head, continue outpatient follow-up. #6. Hypertension: Continue home regimen including lisinopril with hold parameters as needed, PRN hydralazine. #7. Anxiety and depression: We will continue patient home citalopram regimen. #8. Obesity: Weight loss and lifestyle changes encouraged. #9. DVT prophylaxis: SCDs, Lovenox. #10. CODE STATUS: Patient denies having healthcare power of united [place] attorney or living will. She notes she has several family in the area. Difficult discussion therefore will remain full code at this time. Charges/Coding Visit Charges Inpatient E&M: 83497 Subs Hosp L2
[2021-09-24 07:29] LABS: Absolute Lymphocyte Count 0.98 X10^3/uL (0.83-4.51); Absolute Neutrophil Count 6.1 X10^3/uL (2.0-7.7); Basophil# 0.01 X10^3/uL; Basophil% 0.1 % (0-1); Hematocrit 46.2 % (37-47); Hemoglobin 15.2 g/dL (12.0-15.0); Lymphocyte # 0.98 X10^3/ul (0.83-4.51); Mean Corp Hgb Conc 32.9 g/dL (32-36); Mean Corpuscular Hgb 27.6 pg (27.0-32.0); Mean Corpuscular Volume 83.8 fL (81-99); Mean Platelet Vol. 12.6 fl (6.2-12.0); Monocyte# 0.38 X10^3/uL; Monocyte% 5.1 % (0-10); NRBC Flagged by Analyzer 0 % (0-5); Neutrophil # 6.11 X10^3/uL (2.7-7.7); Neutrophil % 81.4 % (47-70); Platelet Count 150 K/mm3 (150-450); RBC Distribution Width CV 13.1 % (11.6-14.6); RBC Distribution Width SD 40.3 fl (35.1-43.9); Red Blood Count 5.51 M/mm3 (4.2-5.4); White Blood Count 7.5 K/mm3 (4.4-11.0)
[2021-09-24 08:08] LABS: ALB/GLOB Ratio 0.5 RATIO (0.9-2.4); AST(SGOT) 43 U/L (15-37); Alanine Aminotransfer ALT/SGPT 36 U/L (13-56); Albumin, Serum 2.4 g/dL (3.2-5.0); Alkaline Phosphatase 51 U/L (45-117); Anion Gap 10 (5-15); BUN 33 mg/dL (7-18); BUN/Creat Ratio 35.3 RATIO (10-20); Calcium,Total 8.2 mg/dL (8.5-10.1); Chloride 109 mmol/L (98-107); Creatinine, Serum 0.93 mg/dL (0.55-1.02); EST Glomerular Filtration Rate 61 mL/min (>60); Est Glom Filt Rate - Afr Amer 74 mL/min (>60); Estimated Creatinine Clearance 40.97 ml/min; Globulin 4.8 g/dL (2.2-4.2); Glucose 108 mg/dL (74-106); Protein, Total 7.2 g/dL (6.4-8.2); Sodium Level 138 mmol/L (136-145)
[2021-09-24] MEDS: 0.9% Saline Lock 10 ML Syringe IV ×2 (09:35→21:03)
[2021-09-24] MEDS: Ceftriaxone 1 GM/50 ML BAG IV (09:36)
[2021-09-24] MEDS: dexAMETHasone 10 MG/ML Vial 6 MG IV (09:36)
[2021-09-24] MEDS: Lisinopril 5 MG Tablet PO (09:36)
[2021-09-24] MEDS: Multivitamins,Therapeutic Tablet 1 TABLET PO (09:37)
[2021-09-24] MEDS: Aspirin 81 MG TAB.CHEW PO (09:37)
[2021-09-24] MEDS: Citalopram 20 MG Tablet PO (09:37)
[2021-09-24] MEDS: Enoxaparin 30 MG/0.3 ML Syringe SC ×2 (09:43→21:03)
--- NOTE | 2021-09-24 10:13 | NURSING ---
difficult to get spo2 reading with activity to chair as pt fingers are cold and pt has goosebumps. will attempt later
[2021-09-24] MEDS: Cefdinir 300 MG Capsule PO (21:02)
[2021-09-25] VITALS (10 sets, daily range): BP systolic 100–143; BP diastolic 49–70; PULSE 60–89; RESP 18–20; TEMP 36.1–36.8; O2SAT 91–95
--- NOTE | 2021-09-25 06:34 | PN.HOSP_ITS ---
Subjective Subjective Patient with no acute events overnight per self or per nursing staff. Patient remained stable on supplemental oxygen with most recent oxygenation trial with 3 L nasal cannula required while at rest with 91% and increased to 5 L 90% with ambulation. Patient denies any marked nausea, emesis, diarrhea, cough. She n otes the dyspnea is lessening. Discussed discharge planning with her as well as her daughter who is interested in skilled facility placement however this has been a difficult venture. Following several discussions daughter is insistent on potential transfer to [facility] where her family works. Patient denies fevers, chills, nausea, emesis, abdominal pain, chest pain. Objective Data Objective Data Vital Signs: Vital Signs Temp Pulse Resp BP Pulse Ox 97.4 F L 76 20 H 133/70 H 92 09/25/21 04:49 09/25/21 04:49 09/25/21 04:49 09/25/21 04:49 09/25/21 04:49 Oxygen Flow Rate (L/min) [ 3 AMBULATING with Oxygen #3] Oxygen Flow Rate (L/min) [ 5 AMBULATING with Oxygen #2] Oxygen Flow Rate (L/min) [ 4 AMBULATING with Oxygen #1] Oxygen Flow Rate (L/min) [At 3 REST with Oxygen] Oxygen Flow Rate (L/min) 2 Oxygen Delivery Method Nasal Cannula Weight: 199 lb 15.348 oz Body Mass Index (BMI) 34.3 Intake & Output: Intake and Output for Last 24 Hours 09/23/21 09/24/21 09/25/21 23:59 23:59 23:59 Intake Total 1700.00 / 1900.00 1426.67 / 1426.67 Output Total 200 / 200 500 / 500 250 / 250 Balance 1500.00 / 1700.00 926.67 / 926.67 -250 / -250 Lab / Micro Data Result Diagrams: 09/25/21 06:12 09/25/21 06:12 Labs: Laboratory Results - last 24 hr 09/24/21 07:10: WBC 7.5, RBC 5.51 H, Hgb 15.2 H, Hct 46.2, MCV 83.8, MCH 27.6, MCHC 32.9, RDW Std Deviation 40.3, RDW Coeff of Te 13.1, Plt Count 150, MPV 12.6 H, Immature Gran % (Auto) 0.400, Neut % (Auto) 81.4 H, Lymph % (Auto) 13.0 L, [place] % (Auto) 5.1, Eos % (Auto) 0.0, Baso % (Auto) 0.1, Absolute Neuts (auto) 6.1, Absolute Lymphs (auto) 0.98, Nucleated RBC % 0 09/24/21 07:10: Sodium 138, Potassium 4.0, Chloride 109 H, Carbon Dioxide 19.0 L , Anion Gap 10, BUN 33 H, Creatinine 0.93, Estim Creat Clear Calc 40.97, Est GFR (MDRD) Af Amer 74, Est GFR (MDRD) Non-Af 61, BUN/Creatinine Ratio 35.3 H, Glucose 108 H, Calcium 8.2 L, Total Bilirubin 0.30, AST 43 H, ALT 36, Alkaline Phosphatase 51, Total Protein 7.2, Albumin 2.4 L, Globulin 4.8 H, Albumin/Globulin Ratio 0.5 L Micro: Microbiology 09/24/21 10:00 Stool C. difficile DNA Amplification - Final 09/22/21 05:20 Blood Culture (Wb) - Anticubital Left Blood Culture - Preliminary No growth in 48 hours. 09/21/21 16:32 Blood Culture (Wb) - Anticubital Left Blood Culture - Preliminary No growth in 48 hours. 09/21/21 16:57 Urine, Clean Catch Urine Culture - Final Presumptive E. coli 09/21/21 15:10 Nasal Secretion SARS-CoV-2 Antigen (Rapid) - Final SARS-CoV-2 (COVID 19) Physical Exam Narrative Physical Examination: General: Awake, alert, oriented x 3 and cooperative, seated upright at the medical surgical bedside, fatigued appearing. Skin: Normal color, normal turgor, no icterus, no cyanosis. HEENT: AT/NC, EOMI, PERRLA, improved MMM. Lungs: Diminished diffusely, greater bases, mild increased respiratory rate, no evidence of distress, no rales, ronchi or wheezing. Heart: Regular rate and rhythm; no gallop, rub audible. Abdomen: Soft, obese, NTTP, ND, normalized BS. Extremities: No cyanosis, clubbing, or edema. Neurological: Patient awake, alert, oriented as noted, cognitive function intact; pupils equally reactive to light and accommodation, cranial nerves II- XII grossly normal, moving all 4 extremities, no focal deficits, strength moderately to severely globally decreased secondary to acute presentation. Psychiatric: Affect appears fatigued, no acute evidence of depressive or anxiety feelings. Assessment & Plan Assessment/Plan (1) Pneumonia due to 2019-nCoV: (2) Urinary tract infection: QUALIFIERS: Urinary tract infection type: acute cystitis Hematuria presence: without hematuria Qualified Code(s): N30.00 - Acute cystitis without hematuria PLAN: The patient is an 81 y/o F w/ PMHx: HTN, HLD, Diabetes mellitus type II, Anxiety and Depression who presents to the [facility] ED on 09/21/21 with reported significant decline with frequent falls and notable encephalopathy unable to provide appropriate history upon initial presentation with pulse oximeter noted to be 83% on room air with eventual diagnosis of COVID as well as UTI. #1. Acute Hypoxia secondary to Acute Bilateral Pneumonia secondary to Acute Viral Syndrome, COVID-19 with unvaccinated status: Admitted to medical surgical floor, infectious disease consulted and agreed with continue Rocephin for possible UTI, given symptoms and presentation ID suspected that she was over 10 days of onset of Covid symptoms secondary to resolution of most of her acute symptoms and low level oxygen requirements, will maintain on oxygen with wean as tolerated to room air, PRN albuterol, HOB, IS parameters, initial Covid evaluation with elevated D-dimer with CTPA with no central or segmental pulmonary embolism with multifocal infiltrates consistent with Covid pneumonia, continue supportive care including q 2 hour turning including prone given no prone bed availability and judicious hydration, closely monitor for worsening status for ARDS and multiorgan failure, patient maintained on Decadron therapy, not candidate for remdesivir given timeline per ID. PT/OT/case visit consultations for discharge planning with current plan pending daughter decision. SNF possibility discussed but family reticent for placement if >/= 1 hour from her home. Discussed home health potential but she is also reticent as patient still requiring oxygen which was discussed as a common discharge need for COVID patients. Family requesting now attempt for transfer of patient care to [facility] as her family works at that facility as she is not satisfied with her care at [facility]. Attempting transfer. Quarantine end date 10/02/21. #2. Acute E. Coli Urinary Tract Infection: UA upon ED evaluation remarkable, UCX with presumptive E. coli with near morel sensitivity, monitor I/Os, initially placed on IV Rocephin w/ transition to cefdinir given sensitivies with stop date 09/29/21 after evening dose. #3. Acute encephalopathy, multifactorial, secondary to acute UTI and acute Covid pneumonia with hypoxia as noted: CT brain with no acute intracranial hemorrhage or mass-effect, central parenchymal volume loss with white matter changes that are nonspecific likely associate with chronic small vessel ischemic change, small right frontal cavernous angioma incidentally noted, continue treatment of #1, #2, maintain on fall precautions, PT and OT consultations as well as case management for discharge planning. #4. Acute renal insufficiency: Secondary to acute presentation #1, #2. Admission BUN/Cr 38/1.41, prior baseline creatinine noted to be primarily 0.9- 1.1, judiciously hydrated, avoid aggressive hydration given acute presentation #1, continue to trend renal function. 09/25/2021 BUN/creatinine 34/0.99. #6. Incidental small right frontal cavernous angioma: Grossly appears stable, noted on follow-up CT of the head, continue outpatient follow-up. #6. Hypertension: Continue home regimen including lisinopril with hold parameters as needed, PRN hydralazine. #7. Anxiety and depression: We will continue patient home citalopram regimen. #8. Obesity: Weight loss and lifestyle changes encouraged. #9. DVT prophylaxis: SCDs, Lovenox. #10. CODE STATUS: Patient denies having healthcare power of trial attorney or living will. Attempted CODE discussion specifics again. Will remain full code. Charges/Coding Visit Charges Inpatient E&M: 80004 Subs Hosp L2
[2021-09-25 06:40] LABS: Absolute Lymphocyte Count 0.84 X10^3/uL (0.83-4.51); Absolute Neutrophil Count 7.8 X10^3/uL (2.0-7.7); Hematocrit 44.7 % (37-47); Hemoglobin 15.1 g/dL (12.0-15.0); Lymphocyte # 0.84 X10^3/ul (0.83-4.51); Lymphocyte % 9.2 % (19-41); Mean Corp Hgb Conc 33.8 g/dL (32-36); Mean Corpuscular Volume 82.8 fL (81-99); Mean Platelet Vol. 12.8 fl (6.2-12.0); Monocyte# 0.47 X10^3/uL; Monocyte% 5.2 % (0-10); NRBC Flagged by Analyzer 0 % (0-5); Neutrophil # 7.75 X10^3/uL (2.7-7.7); Neutrophil % 85.1 % (47-70); Platelet Count 180 K/mm3 (150-450); RBC Distribution Width CV 13.1 % (11.6-14.6); RBC Distribution Width SD 39.5 fl (35.1-43.9); White Blood Count 9.1 K/mm3 (4.4-11.0)
[2021-09-25 07:06] LABS: ALB/GLOB Ratio 0.5 RATIO (0.9-2.4); AST(SGOT) 40 U/L (15-37); Alanine Aminotransfer ALT/SGPT 33 U/L (13-56); Albumin, Serum 2.4 g/dL (3.2-5.0); Alkaline Phosphatase 51 U/L (45-117); Anion Gap 6 (5-15); BUN 34 mg/dL (7-18); BUN/Creat Ratio 34.4 RATIO (10-20); Calcium,Total 8.6 mg/dL (8.5-10.1); Chloride 108 mmol/L (98-107); Creatinine, Serum 0.99 mg/dL (0.55-1.02); EST Glomerular Filtration Rate 57 mL/min (>60); Est Glom Filt Rate - Afr Amer 69 mL/min (>60); Estimated Creatinine Clearance 38.48 ml/min; Globulin 4.5 g/dL (2.2-4.2); Glucose 108 mg/dL (74-106); Potassium 4.3 mmol/L (3.5-5.1); Protein, Total 6.9 g/dL (6.4-8.2); Sodium Level 137 mmol/L (136-145)
--- NOTE | 2021-09-25 09:25 | CASEMGMT ---
Addendum entered by Amanda Hill 09/25/21 15:17: TC to [facility] to cancel O2 for this date, spoke to [facility]. TC to Kelsea at [facility] to update on the patient status to cancel HHC. Addendum entered by Amanda Hill 09/25/21 10:28: Received tc from pt dtr. She is aware that [facility] is set up with SN, PT, OT and STENOTYPE OPERATOR. Discussed approx visits with HH and that they do not stay for a long length of time. She states she is aware of how weak her mother is but her mother does not want to go to a SNF. She asks the closest SNF. Aware, per SW that it is [facility] in [place]. Marly asks that nurse have pt call her when she is in the room next so she can discuss with her mother. Notified pt nurse of this. RN CM to follow. Addendum entered by Amanda Hill 09/25/21 10:17: Received tc from hospitalist who would like CM to reach out to pt dtr regarding SNF placement options. TC to dtr, no vm has been set up, unable to leave a message. Addendum entered by Amanda Hill 09/25/21 09:33: Pt qualifies for home O2, faxed referral to [facility] and tc to [facility] to make aware of referral and tank taken from stock. Original Note: TC prasanna Enamorado at [facility] to update that pt is dc'ing today and add SN and STENOTYPE OPERATOR to order. [facility] to see pt on Tuesday.
[2021-09-25] MEDS: Lisinopril 5 MG Tablet PO (09:38)
[2021-09-25] MEDS: Multivitamins,Therapeutic Tablet 1 TABLET PO (09:38)
[2021-09-25] MEDS: Cefdinir 300 MG Capsule PO ×2 (09:38→21:29)
[2021-09-25] MEDS: Aspirin 81 MG TAB.CHEW PO (09:38)
[2021-09-25] MEDS: Citalopram 20 MG Tablet PO (09:38)
[2021-09-25] MEDS: dexAMETHasone 4 MG Tablet 6 MG PO (09:38)
[2021-09-25] MEDS: Enoxaparin 30 MG/0.3 ML Syringe SC ×2 (09:39→21:29)
[2021-09-25] MEDS: Ondansetron 4 MG/2 ML Vial IV (11:56)
[2021-09-25] MEDS: 0.9% Saline Lock 10 ML Syringe IV (11:56)
--- NOTE | 2021-09-25 12:32 | CASEMGMT ---
Social Work Note BALA updated that pt may be agreeable to SNF. Pt is COVID+ and has [employer] insurance. SW reviewed [employer] webiste, only two SNF that are taking COVID+ that accept pt's insurance is [facility] in [place] and [facility] in [place]. BALA placed a call to Kailash in admissions at [facility] and was updated that they are no longer taking COVID+ patients due to staffing. BALA placed a call to Maggi in admissions at [facility] and left message inquiring about bed availability. BALA placed a call to Mini at [facility] to confirm they do not accept pt's insurance. Mini confirms they are not in network with pt's insurance but states if it is a COVID+ pt then they can sometimes get a one time contract with [employer]. BALA to discuss SNF with pt. Maricarmen Grant MECHANICAL ENGINEERING SPECIALIST, WINDOWS MIGRATION TECHNICIAN
--- NOTE | 2021-09-25 15:51 | DS.PCM_ITS ---
Providers Date of Admission: 09/21/21 Primary Care Physician: Dr. Jammie Coleman MD Consultations 09/21/21 21:25 Consult: Infectious Disease Routine Consulting Provider: Gene Mao Reason for Consult: Covid EMERGENT Consult: No MD Notified: Yes Date Notified: 09/22/21 Time Notified: 03:27 Method of Notification: Answering Service Reason For Visit: COVID-19 Diagnosis Discharge Diagnosis (1) Pneumonia due to 2019-nCoV: Status: Acute Code(s): U07.1 - COVID-19; J12.82 - Pneumonia due to coronavirus disease 2018 (2) Urinary tract infection: Status: Acute Code(s): N39.0 - Urinary tract infection, site not specified Qualifiers: Hematuria presence: without hematuria Urinary tract infection type: acute cystitis Qualified Code(s): N30.00 - Acute cystitis without hematuria Medications at Discharge Home Medications aspirin 81 mg PO DAILY@0800 09/15/13 citalopram 20 mg tablet 20 mg PO DAILY #90 tablet 10/28/20 lisinopril 5 mg tablet 5 mg PO DAILY #90 tablet 01/27/21 arm brace #2 each 02/20/21 multivitamin 1 tablet PO DAILY 02/20/21 Hospital Course Operations None Procedures EKG Summary of Care Provided Minutes Spent on Discharge: 35 Hospital Course: DISCHARGE NOTE: Discharge Diagnoses: #1. Acute Hypoxia secondary to Acute Bilateral Pneumonia secondary to Acute Viral Syndrome, COVID-19 with unvaccinated status #2. Acute E. Coli Urinary Tract Infection #3. Acute encephalopathy, multifactorial, secondary to acute UTI and acute Covid pneumonia with hypoxia as noted #4. Acute renal insufficiency, Secondary to acute presentation #1, #2 #6. Incidental small right frontal cavernous angioma #6. Hypertension #7. Anxiety and depression #8. Obesity #9. CODE STATUS: Patient denies having healthcare power of real estate attorney or living will. Full Code. Discharge Summary: The patient is an 81 y/o F w/ PMHx: HTN, HLD, Diabetes mellitus type II, Anxiety and Depression who presented to the [facility] ED on 09/21/21 with reported significant decline with frequent falls and notable encephalopathy unable to provide appropriate history upon initial presentation with pulse oximeter noted to be 83% on room air with eventual diagnosis of COVID as well as UTI. Admitted to medical surgical floor, infectious disease consulted and agreed with continue Rocephin for possible UTI, given symptoms and presentation ID suspected that she was over 10 days of onset of Covid symptoms secondary to resolution of most of her acute symptoms and low level oxygen requirements, will maintain on oxygen with wean as tolerated to room air, PRN albuterol, HOB, IS parameters, initial Covid evaluation with elevated D-dimer with CTPA with no central or segmental pulmonary embolism with multifocal infiltrates consistent with Covid pneumonia, continue supportive care including q 2 hour turning including prone given no prone bed availability and judicious hydration, closely monitor for worsening status for ARDS and multiorgan failure, patient maintained on Decadron therapy, not candidate for remdesivir given timeline per ID. UA upon ED evaluation remarkable, UCX with E. coli with near morel sensitivity, initially placed on IV Rocephin w/ transition to cefdinir given sensitivities with stop date 09/29/[address] brain with no acute intracranial hemorrhage or mass-effect, central parenchymal volume loss with white matter changes that are nonspecific likely associate with chronic small vessel ischemic change, small right frontal cavernous angioma incidentally noted obtained secondary to confusion. Admission BUN/Cr 38/1.41, prior baseline creatinine noted to be p rimarily 0.9-1.1, judiciously hydrated, avoided aggressive hydration given acute presentation #1, continue to trend renal function. 09/25/2021 BUN/creatinine 34/0.99. Quarantine end date 10/02/21. PT/OT/case visit consultations for discharge planning with current plan pending daughter decision. SNF possibility discussed but family reticent for placement if >/= 1 hour from her home. Discussed home health potential but she is also reticent as patient still requiring oxygen which was discussed as a common discharge need for COVID patients. Patient daughter eventually requested transfer to [facility] [place] as her family works their which was set-up with accepting physician Dr. Valenzuela. Weight / BMI Weight Weight: 199 lb 15.348 oz Body Mass Index (BMI) 34.3 ABG / Lab / Microbiology Data Result Diagrams: 09/25/21 06:12 09/25/21 06:12 Laboratory: Laboratory Results - last 24 hr 09/25/21 06:12: WBC 9.1, RBC 5.40, Hgb 15.1 H, Hct 44.7, MCV 82.8, MCH 28.0, MCHC 33.8, RDW Std Deviation 39.5, RDW Coeff of Te 13.1, Plt Count 180, MPV 12.8 H, Immature Gran % (Auto) 0.500, Neut % (Auto) 85.1 H, Lymph % (Auto) 9.2 L , [place] % (Auto) 5.2, Eos % (Auto) 0.0, Baso % (Auto) 0.0, Absolute Neuts (auto) 7.8 H, Absolute Lymphs (auto) 0.84, Nucleated RBC % 0 09/25/21 06:12: Sodium 137, Potassium 4.3, Chloride 108 H, Carbon Dioxide 23.0, Anion Gap 6, BUN 34 H, Creatinine 0.99, Estim Creat Clear Calc 38.48, Est GFR (MDRD) Af Amer 69, Est GFR (MDRD) Non-Af 57 L, BUN/Creatinine Ratio 34.4 H, Glucose 108 H, Calcium 8.6, Total Bilirubin 0.40, AST 40 H, ALT 33, Alkaline Phosphatase 51, Total Protein 6.9, Albumin 2.4 L, Globulin 4.5 H, Albumin/Globulin Ratio 0.5 L Microbiology: Microbiology 09/24/21 10:00 Stool C. difficile DNA Amplification - Final 09/22/21 05:20 Blood Culture (Wb) - Anticubital Left Blood Culture - Preliminary No growth in 48 hours. 09/21/21 16:32 Blood Culture (Wb) - Anticubital Left Blood Culture - Preliminary No growth in 48 hours. 09/21/21 16:57 Urine, Clean Catch Urine Culture - Final Presumptive E. coli 09/21/21 15:10 Nasal Secretion SARS-CoV-2 Antigen (Rapid) - Final SARS-CoV-2 (COVID 19) Meaningful Use Info Meaningful Use Diagnoses (Choose all that apply): None applicable Discharge Plan Admission Admit Date/Time: 09/21/21 19:46 Primary Reason for Your Visit: Acute Hypoxia, Acute BL PNA, COVID-19, E. Coli UTI, Encephalopathy Attending Provider: Arleth Ruiz Primary Care Provider: Jammie Coleman Consulting Providers: Gene Mao Discharge Orders/Prescriptions Prescriptions: No Action multivitamin Tablet 1 tablet PO DAILY RF: 0 (DME) Wrist Brace Misc See Rx Instructions .ROUTE .MEDSUPPLY Qty: 2 RF: 2 aspirin 81 MG tablet,chewable 81 mg PO DAILY@0800 RF: 0 citalopram 20 mg tablet 20 mg PO DAILY Qty: 90 RF: 3 lisinopril 5 mg tablet 5 mg PO DAILY Qty: 90 RF: 3 Referrals / Follow Up: Jammie Coleman MD [Primary Care Provider] - (Follow-up within 2-5 days hospital discharge and if transitions to SNF afterwards within 1-2 days of SNF discharge.) Disposition Disposition (needs filled in before D/C Order can be placed): Home Health Service Charges/Coding Visit Charges Inpatient E&M: 76961 Disch Hosp
--- NOTE | 2021-09-25 15:52 | CASEMGMT ---
Addendum entered by Maricarmen Grant 09/25/21 16:19: Pt has been accepted to [facility]. BALA updated Mini at [facility]. BALA in to speak with pt. SW introduced self and role at [facility]. Pt is alert and orientated x2, wasn't sure which hospital she was at. SW spoke with pt about her living arrangements as it was reported pt's son may lose the house if pt goes to a SNF. Pt states that she just recently signed over the house to her son. Pt states she thinks her son makes the payment but she is not sure as her daughter handles the finances. Pt denied any financial concerns at this time SW spoke with RN, pt's daughter Marly is aware that pt has been accepted to [facility]. BALA placed a call to pt's daughter Marly and updated her that in the event pt is not transferred to [facility], [facility]F in [place] is able to accept pt. SW asked Marly about pt's finances. Marly confirms she handles pt's finances. Marly confirms that pt recently signed over the house to her son. Marly states that it is a mixture between pt and pt's son paying for the house payment. BALA updated Mini at [facility] that pt's family is wanting pt to be transferred. Plan: Awaiting transfer to [facility]. Maricarmen TONY, TAHIR Original Note: Social Work Note BALA in to speak with pt. BALA introduced self and role at [facility]. SW spoke with pt about recommendation of SNF. Patient was provided a list of SNF providers including quality and resource use data and consistent with the patient?s preferred geographic region, medical needs, and insurance network. BALA explained that closest SNF is [facility] in [place] but they do not take pt's insurance so this worker will need to see if [facility] will approve a one time contract. Pt states is agreeable to referral being sent to [facility]. BALA placed a call to Mini at [facility] and left message regarding referral. BALA faxed referral. BALA then updated that pt's daughter is requesting transfer to [facility]. BALA received email from Mini at [facility] stating they can accept pt and will submit for pre-cert. Plan: [facility] pending pre-cert in the event pt is not transferred to [facility] Maricarmen TONY, DENTAL AIDE
[2021-09-26] VITALS (10 sets, daily range): BP systolic 113–131; BP diastolic 61–70; PULSE 54–80; RESP 18–22; TEMP 36.6–36.7; O2SAT 91–96
--- NOTE | 2021-09-26 06:20 | PCM.PN.HOSP ---
Subjective Subjective Denies any acute events overnight per self or per nursing report but still has had increased oxygen requirements up to 10 to 12 L to maintain appropriate saturations. Patient denies feeling more dyspneic and denies any significant coughing. She feels less fatigued than she had been prior. Patient is still awaiting a bed at [facility], has been accepted but no bed assignment as of yet. Patient denies fevers, chills, nausea, emesis, abdominal pain, chest pain. Objective Data Objective Data Vital Signs: Vital Signs Temp Pulse Resp BP Pulse Ox 97.9 F 54 L 20 H 131/65 H 93 09/26/21 03:50 09/26/21 03:50 09/26/21 03:50 09/26/21 03:50 09/26/21 03:50 Oxygen Flow Rate (L/min) [ 3 AMBULATING with Oxygen #3] Oxygen Flow Rate (L/min) [ 5 AMBULATING with Oxygen #2] Oxygen Flow Rate (L/min) [ 4 AMBULATING with Oxygen #1] Oxygen Flow Rate (L/min) [At 3 REST with Oxygen] Oxygen Flow Rate (L/min) 10 Oxygen Delivery Method Nasal Cannula Weight: 199 lb 15.348 oz Body Mass Index (BMI) 34.3 Intake & Output: Intake and Output for Last 24 Hours 09/24/21 09/25/21 09/26/21 23:59 23:59 23:59 Intake Total 1426.67 / 1426.67 150 / 150 Output Total 500 / 500 750 / 750 Balance 926.67 / 926.67 -600 / -600 Lab / Micro Data Result Diagrams: 09/26/21 06:08 09/26/21 06:08 Labs: Laboratory Results - last 24 hr 09/25/21 06:12: WBC 9.1, RBC 5.40, Hgb 15.1 H, Hct 44.7, MCV 82.8, MCH 28.0, MCHC 33.8, RDW Std Deviation 39.5, RDW Coeff of Te 13.1, Plt Count 180, MPV 12.8 H, Immature Gran % (Auto) 0.500, Neut % (Auto) 85.1 H, Lymph % (Auto) 9.2 L, [place] % (Auto) 5.2, Eos % (Auto) 0.0, Baso % (Auto) 0.0, Absolute Neuts (auto) 7.8 H, Absolute Lymphs (auto) 0.84, Nucleated RBC % 0 09/25/21 06:12: Sodium 137, Potassium 4.3, Chloride 108 H, Carbon Dioxide 23.0, Anion Gap 6, BUN 34 H, Creatinine 0.99, Estim Creat Clear Calc 38.48, Est GFR (MDRD) Af Amer 69, Est GFR (MDRD) Non-Af 57 L, BUN/Creatinine Ratio 34.4 H, Glucose 108 H, Calcium 8.6, Total Bilirubin 0.40, AST 40 H, ALT 33, Alkaline Phosphatase 51, Total Protein 6.9, Albumin 2.4 L, Globulin 4.5 H, Albumin/Globulin Ratio 0.5 L Micro: Microbiology 09/24/21 10:00 Stool C. difficile DNA Amplification - Final 09/22/21 05:20 Blood Culture (Wb) - Anticubital Left Blood Culture - Preliminary No growth in 48 hours. 09/21/21 16:32 Blood Culture (Wb) - Anticubital Left Blood Culture - Preliminary No growth in 48 hours. 09/21/21 16:57 Urine, Clean Catch Urine Culture - Final Presumptive E. coli 09/21/21 15:10 Nasal Secretion SARS-CoV-2 Antigen (Rapid) - Final SARS-CoV-2 (COVID 19) Physical Exam Narrative Physical Examination: General: Awake, alert, oriented x 3 and cooperative, seated upright at the medical surgical bedside, mildly less fatigued appearing than day prior. Skin: Normal color, normal turgor, no icterus, no cyanosis. HEENT: AT/NC, EOMI, PERRLA, MMM. Lungs: Diminished diffusely, greater bases, mild increased respiratory rate but to increase oxygen requirement no evidence of distress, no rales, ronchi or wheezing. Heart: Regular rate and rhythm; no gallop, rub audible. Abdomen: Soft, obese, NTTP, ND, normalized BS. Extremities: No cyanosis, clubbing, or edema. Neurological: Patient awake, alert, oriented as noted, cognitive function intact; pupils equally reactive to light and accommodation, cranial nerves II-XII grossly normal, moving all 4 extremities, no focal deficits, strength moderately to severely globally decreased secondary to acute presentation. Psychiatric: Affect appears more interactive, talking more, no acute evidence of depressive or anxiety feelings. Assessment & Plan Assessment/Plan (1) Pneumonia due to 2019-nCoV: (2) Urinary tract infection: QUALIFIERS: Hematuria presence: without hematuria Urinary tract infection type: acute cystitis Qualified Code(s): N30.00 - Acute cystitis without hematuria PLAN: The patient is an 81 y/o F w/ PMHx: HTN, HLD, Diabetes mellitus type II, Anxiety and Depression who presents to the [facility] ED on 09/21/21 with reported significant decline with frequent falls and notable encephalopathy unable to provide appropriate history upon initial presentation with pulse oximeter noted to be 83% on room air with eventual diagnosis of COVID as well as UTI. #1. Acute Hypoxia Respiratory Failure secondary to Acute Bilateral Pneumonia secondary to Acute Viral Syndrome, COVID-19 with unvaccinated status: Admitted to medical surgical floor, infectious disease consulted and agreed with continue Rocephin for possible UTI, given symptoms and presentation ID suspected that she was over 10 days of onset of Covid symptoms secondary to resolution of most of her acute symptoms and low level oxygen requirements upon initial presentation with planned and quarantine date 10/02/2021 per infectious disease recommendation, initial Covid evaluation with elevated D-dimer with CTPA with no central or segmental pulmonary embolism with multifocal infiltrates consistent with Covid pneumonia, patient maintained on Decadron therapy, not candidate for remdesivir given timeline per ID. PT/OT/case visit consultations with recommendation for consideration shelter facility placement. Patient 09/26/2021 with continued increased oxygen requirements eventually up to 12 L. Patient has been accepted at [facility] where her family works but is awaiting bed assignment. Strongly encouraging continued positional changes including prone as well as aggressive pulmonary toileting and incentive spirometry. If patient does need transition to air Vo or BiPAP will request pulmonary/infectious disease consultation for consideration bar sitting up. 09/26/2021 daughter has been updated on patient progress and that still awaiting [facility] bed. #2. Acute E. Coli Urinary Tract Infection: UA upon ED evaluation remarkable, UCX with presumptive E. coli with near morel sensitivity, monitor I/Os, initially placed on IV Rocephin w/ transition to cefdinir given sensitivities with stop date 09/29/21 after evening dose. #3. Acute encephalopathy, multifactorial, secondary to acute UTI and acute Covid pneumonia with hypoxia as noted: CT brain with no acute intracranial hemorrhage or mass-effect, central parenchymal volume loss with white matter changes that are nonspecific likely associate with chronic small vessel ischemic change, small right frontal cavernous angioma incidentally noted, continue treatment of #1, #2, maintain on fall precautions, PT and OT consultations as well as case management for discharge planning. #4. Acute renal insufficiency: Secondary to acute presentation #1, #2. Admission BUN/Cr 38/1.41, prior baseline creatinine noted to be primarily 0.9-1.1, judiciously hydrated, avoid aggressive hydration given acute presentation #1, continue to trend renal function. 09/26/2021 BUN/creatinine 43/1.0. #6. Incidental small right frontal cavernous angioma: Grossly appears stable, noted on follow-up CT of the head, continue outpatient follow-up. #6. Hypertension: Continue home regimen including lisinopril with hold parameters as needed, PRN hydralazine. #7. Anxiety and depression: We will continue patient home citalopram regimen. #8. Obesity: Weight loss and lifestyle changes encouraged. #9. DVT prophylaxis: SCDs, Lovenox. #10. CODE STATUS: Patient denies having healthcare power of workers compensation defense attorney or living will. Attempted CODE discussion specifics again. Will remain full code. Charges/Coding Visit Charges Inpatient E&M: 43160 Subs Hosp L2
[2021-09-26 06:34] LABS: Absolute Lymphocyte Count 0.86 X10^3/uL (0.83-4.51); Absolute Neutrophil Count 6.3 X10^3/uL (2.0-7.7); Basophil# 0.02 X10^3/uL; Basophil% 0.3 % (0-1); Hematocrit 43.5 % (37-47); Hemoglobin 14.3 g/dL (12.0-15.0); Lymphocyte # 0.86 X10^3/ul (0.83-4.51); Lymphocyte % 10.9 % (19-41); Mean Corp Hgb Conc 32.9 g/dL (32-36); Mean Corpuscular Hgb 27.3 pg (27.0-32.0); Mean Corpuscular Volume 83.2 fL (81-99); Mean Platelet Vol. 12.5 fl (6.2-12.0); Monocyte# 0.63 X10^3/uL; NRBC Flagged by Analyzer 0 % (0-5); Neutrophil # 6.33 X10^3/uL (2.7-7.7); Neutrophil % 79.9 % (47-70); Platelet Count 203 K/mm3 (150-450); RBC Distribution Width SD 39.6 fl (35.1-43.9); Red Blood Count 5.23 M/mm3 (4.2-5.4); White Blood Count 7.9 K/mm3 (4.4-11.0)
[2021-09-26 07:02] LABS: ALB/GLOB Ratio 0.5 RATIO (0.9-2.4); AST(SGOT) 40 U/L (15-37); Alanine Aminotransfer ALT/SGPT 32 U/L (13-56); Albumin, Serum 2.1 g/dL (3.2-5.0); Alkaline Phosphatase 45 U/L (45-117); Anion Gap 6 (5-15); BUN 43 mg/dL (7-18); BUN/Creat Ratio 43.1 RATIO (10-20); Calcium,Total 8.3 mg/dL (8.5-10.1); Chloride 110 mmol/L (98-107); EST Glomerular Filtration Rate 57 mL/min (>60); Est Glom Filt Rate - Afr Amer 69 mL/min (>60); Globulin 4.5 g/dL (2.2-4.2); Glucose 115 mg/dL (74-106); Protein, Total 6.6 g/dL (6.4-8.2); Sodium Level 139 mmol/L (136-145)
[2021-09-26] MEDS: Multivitamins,Therapeutic Tablet 1 TABLET PO (10:30)
[2021-09-26] MEDS: Aspirin 81 MG TAB.CHEW PO (10:30)
[2021-09-26] MEDS: Lisinopril 5 MG Tablet PO (10:30)
[2021-09-26] MEDS: Enoxaparin 30 MG/0.3 ML Syringe SC ×2 (10:30→20:41)
[2021-09-26] MEDS: dexAMETHasone 4 MG Tablet 6 MG PO (10:30)
[2021-09-26] MEDS: Citalopram 20 MG Tablet PO (10:30)
[2021-09-26] MEDS: Cefdinir 300 MG Capsule PO ×2 (10:30→20:41)
--- NOTE | 2021-09-26 14:40 | NURSING ---
cj called, updated vs given as requested. no bed at this time.
[2021-09-27] VITALS (9 sets, daily range): BP systolic 127–145; BP diastolic 63–80; PULSE 60–81; RESP 16–20; TEMP 36.1–36.6; O2SAT 90–96
--- NOTE | 2021-09-27 00:17 | PCM.PN.BLA ---
Progress Note Because patient is on 10 L nasal cannula. [facility] will not patient to a regular MedSurg. [facility] will accept patient to stepdown. Discussed case with stepdown doctor. At this time there is no bed at stepdown unit. Patient to be transferred to [facility] as soon as a stepdown unit becomes available. Discussed with stepdown physician that if patient oxygen requirement is increased needing ICU or or higher higher level of care will discuss with [facility]
--- NOTE | 2021-09-27 06:00 | PCM.PN.HOSP ---
Subjective Subjective Patient with no acute complaints this morning however patient did require transition from high flow to air Vo at 50%. She denies having significant dyspnea but did discuss her current status with increased respiratory rate and requirements escalating is concerning. Discussed with her that given her oxygen elevation requirements she does require [facility] bed [facility] and is still awaiting any available bed which may take days and this was again relayed to her. Pulmonary medicine was consulted and evaluated the patient and agreed to air Vo transition. Patient denies fevers, chills, nausea, emesis, abdominal pain, chest pain. Objective Data Objective Data Vital Signs: Vital Signs Temp Pulse Resp BP Pulse Ox 97.8 F 60 20 H 129/70 H 96 09/27/21 02:00 09/27/21 02:00 09/27/21 02:00 09/27/21 02:00 09/27/21 04:45 Oxygen Flow Rate (L/min) [ 3 AMBULATING with Oxygen #3] Oxygen Flow Rate (L/min) [ 5 AMBULATING with Oxygen #2] Oxygen Flow Rate (L/min) [ 4 AMBULATING with Oxygen #1] Oxygen Flow Rate (L/min) [At 3 REST with Oxygen] Oxygen Flow Rate (L/min) 12 Oxygen Delivery Method Non-Rebreather @ 15L/min Weight: 199 lb 15.348 oz Body Mass Index (BMI) 34.3 Intake & Output: Intake and Output for Last 24 Hours 09/25/21 09/26/21 09/27/21 23:59 23:59 23:59 Intake Total 150 / 150 300 / 300 Output Total 750 / 750 250 / 250 Balance -600 / -600 50 / 50 Lab / Micro Data Result Diagrams: 09/27/21 06:46 09/27/21 06:46 Labs: Laboratory Results - last 24 hr 09/26/21 06:08: WBC 7.9, RBC 5.23, Hgb 14.3, Hct 43.5, MCV 83.2, MCH 27.3, MCHC 32.9, RDW Std Deviation 39.6, RDW Coeff of Te 13.0, Plt Count 203, MPV 12.5 H, Immature Gran % (Auto) 0.900, Neut % (Auto) 79.9 H, Lymph % (Auto) 10.9 L, [place] % (Auto) 8.0, Eos % (Auto) 0.0, Baso % (Auto) 0.3, Absolute Neuts (auto) 6.3, Absolute Lymphs (auto) 0.86, Nucleated RBC % 0 09/26/21 06:08: Sodium 139, Potassium 5.0, Chloride 110 H, Carbon Dioxide 23.0, Anion Gap 6, BUN 43 H, Creatinine 1.00, Estim Creat Clear Calc 38.10, Est GFR (MDRD) Af Amer 69, Est GFR (MDRD) Non-Af 57 L, BUN/Creatinine Ratio 43.1 H, Glucose 115 H, Calcium 8.3 L, Total Bilirubin 0.40, AST 40 H, ALT 32, Alkaline Phosphatase 45, Total Protein 6.6, Albumin 2.1 L, Globulin 4.5 H, Albumin/Globulin Ratio 0.5 L Micro: Microbiology 09/24/21 10:00 Stool C. difficile DNA Amplification - Final 09/22/21 05:20 Blood Culture (Wb) - Anticubital Left Blood Culture - Preliminary No growth in 48 hours. 09/21/21 16:32 Blood Culture (Wb) - Anticubital Left Blood Culture - Preliminary No growth in 48 hours. 09/21/21 16:57 Urine, Clean Catch Urine Culture - Final Presumptive E. coli 09/21/21 15:10 Nasal Secretion SARS-CoV-2 Antigen (Rapid) - Final SARS-CoV-2 (COVID 19) Physical Exam Narrative Physical Examination: General: Awake, alert, oriented x 3 and cooperative, seated upright in medical surgical bed, being transitioned to air Vo, respiratory rate Skin: Normal color, normal turgor, no icterus, no cyanosis. HEENT: AT/NC, EOMI, PERRLA, MMM. Lungs: Diminished diffusely, greater bases, mild increased respiratory rate, being transition to air Vo, no rales, rhonchi or wheezing. Heart: Regular rate and rhythm; no gallop, rub audible. Abdomen: Soft, obese, NTTP, ND, normalized BS. Extremities: No cyanosis, clubbing, or edema. Neurological: Patient awake, alert, oriented as noted, cognitive function intact; pupils equally reactive to light and accommodation, cranial nerves II-XII grossly normal, moving all 4 extremities, no focal deficits, strength remains moderately to severely globally decreased secondary to acute presentation. Psychiatric: Affect appears more interactive, less fatigued despite increased oxygen requirements, no acute evidence of depressive or anxiety feelings. Assessment & Plan Assessment/Plan (1) Pneumonia due to 2019-nCoV: (2) Urinary tract infection: QUALIFIERS: Hematuria presence: without hematuria Urinary tract infection type: acute cystitis Qualified Code(s): N30.00 - Acute cystitis without hematuria PLAN: The patient is an 81 y/o F w/ PMHx: HTN, HLD, Diabetes mellitus type II, Anxiety and Depression who presents to the [facility] ED on 09/21/21 with reported significant decline with frequent falls and notable encephalopathy unable to provide appropriate history upon initial presentation with pulse oximeter noted to be 83% on room air with eventual diagnosis of COVID as well as UTI. #1. Acute Hypoxia Respiratory Failure secondary to Acute Bilateral Pneumonia secondary to Acute Viral Syndrome, COVID-19 with unvaccinated status: Admitted to medical surgical floor, infectious disease consulted and agreed with continue Rocephin for possible UTI, given symptoms and presentation ID suspected that she was over 10 days of onset of Covid symptoms secondary to resolution of most of her acute symptoms and low level oxygen requirements upon initial presentation with planned and quarantine date 10/02/2021 per infectious disease recommendation, initial Covid evaluation with elevated D-dimer with CTPA with no central or segmental pulmonary embolism with multifocal infiltrates consistent with Covid pneumonia, patient maintained on Decadron therapy, not candidate for remdesivir given timeline per ID. PT/OT/case visit consultations with recommendation for consideration group home facility placement. Patient 09/26/2021 with continued increased oxygen requirements eventually up to 12 L. Patient has been accepted at [facility] where her family works but is awaiting bed assignment. Strongly encouraging continued positional changes including prone as well as aggressive pulmonary toileting and incentive spirometry. 09/26/2021 overnight increased oxygen requirements therefore 09/27/2020 1 AM discussed with pulmonary medicine and transition to air Vo with consultation. [facility] bed that had been requested transition to a stepdown request, still awaiting any possible bed assignment. Infectious disease also consulted for consideration barcitinib. Daughter Marly Zambrano updated again on patient status, increased oxygen requirements with transition to airvo, agreed to barcitinib usage. Discussed CODE status as patient herself noted reticence to intubation and she will speak with her brother and contact us with her decision. #2. Acute E. Coli Urinary Tract Infection: UA upon ED evaluation remarkable, UCX with presumptive E. coli with near morel sensitivity, monitor I/Os, initially placed on IV Rocephin w/ transition to cefdinir given sensitivities with stop date 09/29/21 after evening dose. #3. Acute encephalopathy, multifactorial, secondary to acute UTI and acute Covid pneumonia with hypoxia as noted: CT brain with no acute intracranial hemorrhage or mass-effect, central parenchymal volume loss with white matter changes that are nonspecific likely associate with chronic small vessel ischemic change, small right frontal cavernous angioma incidentally noted, continue treatment of #1, #2, maintain on fall precautions, PT and OT consultations as well as case management for discharge planning. #4. Acute renal insufficiency: Secondary to acute presentation #1, #2. Admission BUN/Cr 38/1.41, prior baseline creatinine noted to be primarily 0.9-1.1, judiciously hydrated, avoid aggressive hydration given acute presentation #1, continue to trend renal function. 09/27/2021 BUN/creatinine 41/0.87. #6. Incidental small right frontal cavernous angioma: Grossly appears stable, noted on follow-up CT of the head, continue outpatient follow-up. #6. Hypertension: Continue home regimen including lisinopril with hold parameters as needed, PRN hydralazine. #7. Anxiety and depression: We will continue patient home citalopram regimen. #8. Obesity: Weight loss and lifestyle changes encouraged. #9. DVT prophylaxis: SCDs, Lovenox. #10. CODE STATUS: Patient denies having healthcare power of employment law attorney or living will. Given patient worsening status did again discuss CODE STATUS with her and she reported reticence to intubation but asked that we speak with her family. Updated her daughter on all of her current status changes including transition to air Vo, agreed to proceed into but was unsure if intubation would be appropriate for her she notes intention to discuss these items with her brother and will contact us again for finalization of CODE STATUS. We did discuss air Vo which she is on to which family was amenable and BiPAP to which they are also amenable currently. Advanced Care Planning Face to Face Time: 16 minutes. Charges/Coding Visit Charges Inpatient E&M: 37936 Subs Hosp L3
[2021-09-27 07:48] LABS: Absolute Lymphocyte Count 0.95 X10^3/uL (0.83-4.51); Absolute Neutrophil Count 7.7 X10^3/uL (2.0-7.7); Basophil# 0.02 X10^3/uL; Basophil% 0.2 % (0-1); Eosinophil# 0.01 X10^3/uL; Eosinophils% 0.1 % (0-5); Hematocrit 44.2 % (37-47); Hemoglobin 14.7 g/dL (12.0-15.0); Lymphocyte # 0.95 X10^3/ul (0.83-4.51); Lymphocyte % 10.2 % (19-41); Mean Corp Hgb Conc 33.3 g/dL (32-36); Mean Corpuscular Hgb 27.5 pg (27.0-32.0); Mean Corpuscular Volume 82.6 fL (81-99); Mean Platelet Vol. 12.8 fl (6.2-12.0); Monocyte# 0.53 X10^3/uL; Monocyte% 5.7 % (0-10); NRBC Flagged by Analyzer 0 % (0-5); Neutrophil # 7.66 X10^3/uL (2.7-7.7); Neutrophil % 82.4 % (47-70); Platelet Count 234 K/mm3 (150-450); RBC Distribution Width CV 12.8 % (11.6-14.6); RBC Distribution Width SD 38.7 fl (35.1-43.9); Red Blood Count 5.35 M/mm3 (4.2-5.4); White Blood Count 9.3 K/mm3 (4.4-11.0)
[2021-09-27 08:09] LABS: ALB/GLOB Ratio 0.5 RATIO (0.9-2.4); AST(SGOT) 38 U/L (15-37); Alanine Aminotransfer ALT/SGPT 34 U/L (13-56); Albumin, Serum 2.1 g/dL (3.2-5.0); Alkaline Phosphatase 46 U/L (45-117); Anion Gap 7 (5-15); BUN 41 mg/dL (7-18); BUN/Creat Ratio 47.1 RATIO (10-20); Calcium,Total 8.4 mg/dL (8.5-10.1); Chloride 109 mmol/L (98-107); Creatinine, Serum 0.87 mg/dL (0.55-1.02); EST Glomerular Filtration Rate 66 mL/min (>60); Est Glom Filt Rate - Afr Amer 80 mL/min (>60); Estimated Creatinine Clearance 43.79 ml/min; Globulin 4.4 g/dL (2.2-4.2); Glucose 98 mg/dL (74-106); Potassium 4.5 mmol/L (3.5-5.1); Protein, Total 6.5 g/dL (6.4-8.2); Sodium Level 140 mmol/L (136-145)
[2021-09-27] MEDS: Enoxaparin 30 MG/0.3 ML Syringe SC ×2 (09:42→20:25)
[2021-09-27] MEDS: Cefdinir 300 MG Capsule PO ×2 (09:45→20:25)
[2021-09-27] MEDS: Multivitamins,Therapeutic Tablet 1 TABLET PO (09:45)
[2021-09-27] MEDS: Lisinopril 5 MG Tablet PO (09:45)
[2021-09-27] MEDS: Citalopram 20 MG Tablet PO (09:45)
[2021-09-27] MEDS: dexAMETHasone 4 MG Tablet 6 MG PO (09:45)
[2021-09-27] MEDS: Aspirin 81 MG TAB.CHEW PO (09:45)
--- NOTE | 2021-09-27 09:59 | EX.PCM.CONCC ---
Assessment & Plan Assessment/Plan (1) Pneumonia due to 2019-nCoV: (2) Declining functional status: (3) Hypertension: PLAN: RECOMMENDATIONS: 1. Continue Decadron. Not Remdesivir candidate 2. Complete antibiotics for UTI 3. Avoid aggressive volume resuscitation as this can worsen hypoxia 4. Challenge with diuretics 5. Could consider baricitinib if inflammation numbers are elevated. Already seen by ID IMPRESSIONS: 1. Acute hypoxic respiratory failure secondary to COVID-19 pneumonia Patient with worsening in oxygenation status over the last 24 to 48 hours. Patient appears to be almost 4 L positive over the course of the hospitalization. We will challenge with diuretics. If patient is not improving with diuretics, evaluation of CRP may be reasonable to see if baricitinib is an option. Another possibility would be pulmonary emboli. Once again, this could be evaluated by a CTA of the chest, but would wait to see if patient would tolerate or respond to diuresis. 2. Acute E. coli UTI Largely sensitive E. coli noted from urine. Unclear baseline mentation, but this could be leading to some confusion. Patient is on appropriate antibiotics at this time. It is unlikely that this is adding to patient's respiratory condition, but may be affecting mentation. No family at the bedside to describe baseline mentation. 3. Acute encephalopathy Multiple possible etiologies. Patient does have an acute UTI and Covid pneumonia leading to hypoxia. Other possibility including small vessel ischemic changes and a frontal cavernous angioma may also be adding to current situation. Unclear baseline at this time. Recommend delirium protocol. 4. Hypertension/anxiety/depression/obesity/unclear vaccinated status Complicates care, management and prognosis. Okay to continue with baseline medications from my perspective. HPI Consult Data Date of Consult: 09/27/21 HPI Narrative HPI Narrative: FARRAH BONILLA is an 81 F, with past medical history listed below, who presented to [facility] 09/21/2021 secondary to progressive shortness of breath. Patient is a very difficult historian, so most of the history is from the electronic medical record. Patient does report that she did not receive Covid vaccinations. Patient states that she has been sick a long time, but is unaware or unable to provide any symptomatology that indicates that she started to become sick. In the ER, patient was noted to be 99 ?F and hypertensive. Patient was saturating 92% on room air, but did desaturate with ambulation was placed on 2 L nasal cannula. Patient was tachypneic as fast as 26 breaths/min. Laboratory work-up was relatively unremarkable except for a hemoglobin of 15.7, creatinine of 1.4 and a glucose of 122. LFTs, lactic acid and electrolytes were acceptable. Patient did have an urinalysis suggestive of infection. Chest x-ray showed right basilar atelectasis. EKG showed sinus tachycardia. Patient was admitted to the floor with a diagnosis of functional decline. Patient did test positive for COVID-19 and was seen by infectious disease. Patient has been on Decadron therapy and oxygenation was relatively stable for several days. However, over the last 2 to 3 days patient has had progressive oxygen needs. On my evaluation, patient was receiving nasal cannula with a nonrebreather over top to maintain saturations. Patient did report a cough that was intermittently productive. Patient did not report any epistaxis or hemoptysis. No melena or abdominal pain was reported. Patient was not able to provide a reliable review of systems. Patient reportedly is awaiting transfer to [facility] because a family member works there. Patient is unable to tell me which family member it is that works there. FOR[facility]LY [facility], [facility] Medical History Anxiety Back pain Cancer Diabetes Hypertension Osteopenia Home Medications aspirin 81 mg PO DAILY@0800 09/15/13 [History Last Taken 05/16/17] citalopram 20 mg tablet 20 mg PO DAILY #90 tablet 10/28/20 [Rx Last Taken Unknown] lisinopril 5 mg tablet 5 mg PO DAILY #90 tablet 01/27/21 [Rx Last Taken Unknown] arm brace #2 each 02/20/21 [Rx Last Taken Unknown] multivitamin 1 tablet PO DAILY 02/20/21 [History Last Taken Unknown] Allergy/AdvReac Type Severity Reaction Status Date / Time codeine AdvReac Other Verified 09/21/21 14:24 Family History Mother Hypertension Cancer lymphoma Diabetes Sister Colon cancer Brother CVA (cerebral vascular accident) Social History Smoking Status: Never smoker alcohol intake: current alcohol intake frequency: holidays/special occasions only Alcohol type: beer substance use type: does not use what type of physical activity do you participate in: walking frequency: 3-4 times per week ROS Review of Systems ROS Unobtainable: due to mental condition Physical Exam Const alert and no apparent distress General Appearance: cooperative and anxious Orientation / Consciousness: oriented to person; Negative for oriented to place, oriented to time or lethargic HEENT normocephalic and head/scalp atraumatic Eyes PERRL and EOMs intact bilaterally Neck supple and No nodes Chest inspection of chest normal Chest: symmetrical chest wall rise; Negative for crepitus Resp Auscultation: diminished lung sounds diffuse (Fair effort); Negative for rales, rhonchi or wheezes Cardio regular rate and regular rhythm GI normal to inspection, nondistended, normoactive bowel sounds Extremity General Extremity: Negative for clubbing, cyanosis or edema Skin no rashes or lesions noted Neuro CN's II-XII intact bilaterally Psych cooperative Attitude: withdrawn Activity / Motor Behavior: avoids eye contact Lab / Micro Data Result Diagrams: 09/27/21 06:46 09/27/21 06:46 Labs: Laboratory Results - last 24 hr 09/27/21 06:46: WBC 9.3, RBC 5.35, Hgb 14.7, Hct 44.2, MCV 82.6, MCH 27.5, MCHC 33.3, RDW Std Deviation 38.7, RDW Coeff of Te 12.8, Plt Count 234, MPV 12.8 H, Immature Gran % (Auto) 1.400 H, Neut % (Auto) 82.4 H, Lymph % (Auto) 10.2 L, [place]unnels % (Auto) 5.7, Eos % (Auto) 0.1, Baso % (Auto) 0.2, Absolute Neuts (auto) 7.7, Absolute Lymphs (auto) 0.95, Nucleated RBC % 0 09/27/21 06:46: Sodium 140, Potassium 4.5, Chloride 109 H, Carbon Dioxide 24.0, Anion Gap 7, BUN 41 H, Creatinine 0.87, Estim Creat Clear Calc 43.79, Est GFR (MDRD) Af Amer 80, Est GFR (MDRD) Non-Af 66, BUN/Creatinine Ratio 47.1 H, Glucose 98, Calcium 8.4 L, Total Bilirubin 0.50, AST 38 H, ALT 34, Alkaline Phosphatase 46, Total Protein 6.5, Albumin 2.1 L, Globulin 4.4 H, Albumin/Globulin Ratio 0.5 L Micro: Microbiology 09/22/21 05:20 Blood Culture (Wb) - Anticubital Left Blood Culture - Final No growth in 5 days. 09/21/21 16:32 Blood Culture (Wb) - Anticubital Left Blood Culture - Final No growth in 5 days. Charges/Coding Visit Charges Inpatient E&M: 63358 Init Hosp L3
[2021-09-27] MEDS: Furosemide 40 MG/4 ML Vial IV (12:52)
[2021-09-27] MEDS: 0.9% Saline Lock 10 ML Syringe IV ×2 (12:53→20:26)
[2021-09-28] VITALS (30 sets, daily range): BP systolic 86–141; BP diastolic 51–78; PULSE 52–90; RESP 14–30; TEMP 36.6–37.2; O2SAT 91–98
--- NOTE | 2021-09-28 01:23 | NURSING ---
Spoke to pts daughter Marly, made her aware pt keeps dropping to 86-87% on airvo and she is maxed out on airvo setting. RN wanted to clarify if its ok to put pt on Bipap. pts daughter Marly states ok to put pt on bipap and also Marly and her brother were ok for intubation if needed. Paged dr. Garcia and made him aware regarding pts daughter ok for bipap and asked for order. put order in. made RT aware as well.
[2021-09-28] MEDS: Acetaminophen 325 MG Tablet 650 MG PO (04:32)
--- NOTE | 2021-09-28 06:11 | CPS ---
Pt did not tolerated bipap well at all. RN aware AIRVO back on pt o2 sats mid 90s on AIRVO
--- NOTE | 2021-09-28 06:27 | PCM.PN.HOSP ---
Subjective Subjective Patient overnight with continued decline with significant increased oxygenation requirements with attempt from transition to air Vo to BiPAP however patient did not tolerate this. Given significant respiratory difficulties and evident worsening respiratory failure discussed transition with outpatient interviewing clerk and patient was transitioned to the ICU. Patient also evaluated by infectious disease with agreement that patient is not a remdesivir candidate, agreed with continuation of Decadron and potential initiation of barcitinib. Patient does state she feels more fatigued but patient denies fevers, chills, nausea, emesis, abdominal pain, chest pain or worsening dyspnea despite oxygen increased requirements which were discussed at length. Objective Data Objective Data Vital Signs: Vital Signs Temp Pulse Resp BP Pulse Ox 98 F 71 20 H 141/78 H 94 09/28/21 04:01 09/28/21 04:01 09/28/21 04:01 09/28/21 04:01 09/28/21 04:01 Oxygen Flow Rate (L/min) [ 3 AMBULATING with Oxygen #3] Oxygen Flow Rate (L/min) [ 5 AMBULATING with Oxygen #2] Oxygen Flow Rate (L/min) [ 4 AMBULATING with Oxygen #1] Oxygen Flow Rate (L/min) [At 3 REST with Oxygen] Oxygen Flow Rate (L/min) 60 Oxygen Delivery Method Airvo Weight: 199 lb 15.348 oz Body Mass Index (BMI) 34.3 Intake & Output: Intake and Output for Last 24 Hours 09/26/21 09/27/21 09/28/21 23:59 23:59 23:59 Intake Total 300 / 300 120 / 120 Output Total 350 / 350 2000 / 1999 250 / 250 Balance -50 / -50 -1880 / -1880 -250 / -250 Lab / Micro Data Result Diagrams: 09/28/21 12:50 09/28/21 12:50 Labs: Laboratory Results - last 24 hr 09/27/21 06:46: WBC 9.3, RBC 5.35, Hgb 14.7, Hct 44.2, MCV 82.6, MCH 27.5, MCHC 33.3, RDW Std Deviation 38.7, RDW Coeff of Te 12.8, Plt Count 234, MPV 12.8 H, Immature Gran % (Auto) 1.400 H, Neut % (Auto) 82.4 H, Lymph % (Auto) 10.2 L, [place] % (Auto) 5.7, Eos % (Auto) 0.1, Baso % (Auto) 0.2, Absolute Neuts (auto) 7.7, Absolute Lymphs (auto) 0.95, Nucleated RBC % 0 09/27/21 06:46: Sodium 140, Potassium 4.5, Chloride 109 H, Carbon Dioxide 24.0, Anion Gap 7, BUN 41 H, Creatinine 0.87, Estim Creat Clear Calc 43.79, Est GFR (MDRD) Af Amer 80, Est GFR (MDRD) Non-Af 66, BUN/Creatinine Ratio 47.1 H, Glucose 98, Calcium 8.4 L, Total Bilirubin 0.50, AST 38 H, ALT 34, Alkaline Phosphatase 46, Total Protein 6.5, Albumin 2.1 L, Globulin 4.4 H, Albumin/Globulin Ratio 0.5 L Micro: Microbiology 09/22/21 05:20 Blood Culture (Wb) - Anticubital Left Blood Culture - Final No growth in 5 days. 09/21/21 16:32 Blood Culture (Wb) - Anticubital Left Blood Culture - Final No growth in 5 days. 09/24/21 10:00 Stool C. difficile DNA Amplification - Final 09/21/21 16:57 Urine, Clean Catch Urine Culture - Final Presumptive E. coli 09/21/21 15:10 Nasal Secretion SARS-CoV-2 Antigen (Rapid) - Final SARS-CoV-2 (COVID 19) Physical Exam Narrative Physical Examination: General: Awake, alert, oriented to self, place and some recent events but more lethargic and fatigued appearing today, seated upright in the medical surgical bed prior to ICU transition, evident respiratory distress with increased work of breathing and accessory muscle usage, currently on air Vo as initially not tolerating BiPAP. Skin: Normal color, normal turgor, no icterus, no cyanosis. HEENT: AT/NC, EOMI, PERRLA, dry MM. Lungs: Diminished diffusely, greater bases, increased respiratory rate, accessory muscle usage evident, evidence of distress, currently failed BiPAP trial, being transitioned back to airvo, no rales, rhonchi or wheezing. Heart: Regular rate and rhythm; no gallop, rub audible. Abdomen: Soft, obese, NTTP, ND, distant normal BS. Extremities: No cyanosis, clubbing, or edema. Neurological: Patient awake, alert, oriented as noted, cognitive function mildly decreased from intact; pupils equally reactive to light and accommodation, cranial nerves II-XII grossly normal, moving all 4 extremities, no focal deficits, strength worsening, severely global decrease secondary to worsening respiratory status. Psychiatric: Affect appears worsened, increased work of breathing, accessory muscle usage, evident worsened respiratory distress, no acute evidence of depressive or anxiety feelings. Assessment & Plan Assessment/Plan (1) Pneumonia due to 2019-nCoV: (2) Urinary tract infection: QUALIFIERS: Urinary tract infection type: acute cystitis Hematuria presence: without hematuria Qualified Code(s): N30.00 - Acute cystitis without hematuria PLAN: The patient is an 81 y/o F w/ PMHx: HTN, HLD, Diabetes mellitus type II, Anxiety and Depression who presents to the [facility] ED on 09/21/21 with reported significant decline with frequent falls and notable encephalopathy unable to provide appropriate history upon initial presentation with pulse oximeter noted to be 83% on room air with eventual diagnosis of COVID as well as UTI. #1. Acute Hypoxia Respiratory Failure secondary to Acute Bilateral Pneumonia secondary to Acute Viral Syndrome, COVID-19 with unvaccinated status: Admitted to medical surgical floor, infectious disease consulted and agreed with continue Rocephin for possible UTI, given symptoms and presentation ID suspected that she was over 10 days of onset of Covid symptoms secondary to resolution of most of her acute symptoms and low level oxygen requirements upon initial presentation with planned and quarantine date 10/02/2021 per infectious disease recommendation, initial Covid evaluation with elevated D-dimer with CTPA with no central or segmental pulmonary embolism with multifocal infiltrates consistent with Covid pneumonia, patient maintained on Decadron therapy, not candidate for remdesivir given timeline per ID. PT/OT/case visit consultations with recommendation for consideration [facility] facility placement. Patient 09/26/2021 with continued increased oxygen requirements eventually up to 12 L. Patient has been accepted at [facility] where her family works but is awaiting bed assignment. Strongly encouraging continued positional changes including prone as well as aggressive pulmonary toileting and incentive spirometry. 09/26/2021 overnight increased oxygen requirements therefore 09/27/2020 1 AM discussed with pulmonary medicine and transition to air Vo with consultation. [facility] bed that had been requested transition to a stepdown request, still awaiting any possible bed assignment. Infectious disease also consulted for consideration barcitinib with noted CRP 15.10. 09/28/2021 AM patient transition to the ICU as initial BiPAP trial not successful and patient had not seemed amenable. Will attempt to continue to encourage upon ICU transition. Plan pulse dose Lasix. 09/28/2021 confirmed with family that patient is a full CODE STATUS. #2. Acute E. Coli Urinary Tract Infection: UA upon ED evaluation remarkable, UCX with presumptive E. coli with near morel sensitivity, monitor I/Os, initially placed on IV Rocephin w/ transition to cefdinir given sensitivities with stop date 09/29/21 after evening dose. #3. Acute encephalopathy, multifactorial, secondary to acute UTI and acute Covid pneumonia with hypoxia as noted: CT brain with no acute intracranial hemorrhage or mass-effect, central parenchymal volume loss with white matter changes that are nonspecific likely associate with chronic small vessel ischemic change, small right frontal cavernous angioma incidentally noted, continue treatment of #1, #2, maintain on fall precautions, PT and OT consultations as well as case management for discharge planning. #4. Acute renal insufficiency: Secondary to acute presentation #1, #2. Admission BUN/Cr 38/1.41, prior baseline creatinine noted to be primarily 0.9-1.1, judiciously hydrated, avoid aggressive hydration given number 1, 09/28/2021 BUN/creatinine 49/0.98, creatinine clearance 38.88. Pulse dose Lasix intention as noted above #1, will continue monitor renal function. #6. Incidental small right frontal cavernous angioma: Grossly appears stable, noted on follow-up CT of the head, continue outpatient follow-up. #6. Hypertension: Continue home regimen including lisinopril with hold parameters as needed, PRN hydralazine. #7. Anxiety and depression: We will continue patient home citalopram regimen. #8. Obesity: Weight loss and lifestyle changes encouraged. #9. DVT prophylaxis: SCDs, Lovenox. #10. CODE STATUS: 09/28/2021 confirmed Full Code status with family as noted above. Charges/Coding Visit Charges Inpatient E&M: 23877 Subs Hosp L3
--- NOTE | 2021-09-28 06:43 | NURSING ---
Spoke to pts daughter Marly, made her aware discharge door operator spoke to Dr. varner this am and the wanted to Tx pt to the ICU to closely monitor pt. pt is still on airvo and did not tolerate bipap last night. pt started to cough and panic. pt oxygen is 95-94% on airvo at the moment. Also clarified if they still want pt intubated if needed, Marly states its ok. Also mentioned if they still want to Tx pt to [facility] in case they will call again, daughter states at this point she is not sure. RN suggested might be better to discuss with the
--- NOTE | 2021-09-28 07:29 | NURSING ---
report given to Teresita HERNANDEZ from ICU.
--- NOTE | 2021-09-28 07:35 | PN.CC_ITS ---
Assessment & Plan Assessment/Plan (1) Pneumonia due to 2019-nCoV: (2) Declining functional status: (3) Hypertension: PLAN: RECOMMENDATIONS: 1. Continue Decadron. Not Remdesivir candidate 2. Complete antibiotics for UTI 3. Potential intubation 4. Challenge with diuretics pending chemistries 5. Could consider baricitinib if inflammation numbers are elevated. Already seen by ID IMPRESSIONS: 1. Acute hypoxic respiratory failure secondary to COVID-19 pneumonia Patient with worsening in oxygenation status over the last 24 to 48 hours. Patient appears to be almost 4 L positive over the course of the hospitalization. We will challenge with diuretics. If patient is not improving with diuretics, evaluation of CRP may be reasonable to see if baricitinib is an option. Another possibility would be pulmonary emboli. Once again, this could be evaluated by a CTA of the chest, but would wait to see if patient would tole rate or respond to diuresis. Clinical suspicion for continued deterioration secondary to noncompliance with incentive spirometer, prone positioning and Acapella. Patient is a full code. Anticipate intubation in the near future. Will attempt to diurese if renal function stable on chemistries. Labs are currently pending. 2. Acute E. coli UTI Largely sensitive E. coli noted from urine. Unclear baseline mentation, but this could be leading to some confusion. Patient is on appropriate antibiotics at this time. It is unlikely that this is adding to patient's re spiratory condition, but may be affecting mentation. No family at the bedside to describe baseline mentation. 3. Acute encephalopathy Multiple possible etiologies. Patient does have an acute UTI and Covid pneumonia leading to hypoxia. Other possibility including small vessel ischemic changes and a frontal cavernous angioma may also be adding to current situation. Unclear baseline at this time. Recommend delirium protocol. 4. Hypertension/anxiety/depression/obesity/unclear vaccinated status Complicates care, management and prognosis. Okay to continue with baseline medications from my perspective. Addendum 8:42 AM: Upon transfer to the intensive care unit patient was placed on BiPAP therapy. Patient saturations are improved and she appears to be tolerating it at this time. We will hold on intubation, but continue to monitor in the intensive care unit. TIME: 34 minutes critical care time spent addressing patient's acute hypoxic respiratory failure, UTI, encephalopathy, clarification of CODE STATUS, review of all data and collaboration with care team Subjective Subjective Patient continues to worsen from an oxygenation standpoint. Nursing is reported patient has not been using her incentive spirometer or Acapella therapy. No prone positioning has been noted. Patient was attempted on BiPAP therapy overnight, but was unable to tolerate. Hospitalist did meet with the family members yesterday and confirmed that she is a full code. Patient is in the pro cess of being transferred to the intensive care unit for potential intubation. The transfer process to [facility] will have to be reinitiated now that patient is in the ICU. Objective Data Objective Data Vital Signs: Vital Signs Temp Pulse Resp BP Pulse Ox 36.6 C 90 24 H 139/77 H 92 09/28/21 06:47 09/28/21 06:47 09/28/21 06:47 09/28/21 06:47 09/28/21 06:47 Oxygen Flow Rate (L/min) [ 3 AMBULATING with Oxygen #3] Oxygen Flow Rate (L/min) [ 5 AMBULATING with Oxygen #2] Oxygen Flow Rate (L/min) [ 4 AMBULATING with Oxygen #1] Oxygen Flow Rate (L/min) [At 3 REST with Oxygen] Oxygen Flow Rate (L/min) 60 Oxygen Delivery Method Airvo Weight: 90.7 kg Body Mass Index (BMI) 34.3 Intake & Output: Intake and Output for Last 24 Hours 09/26/21 09/27/21 09/28/21 23:59 23:59 23:59 Intake Total 300 / 300 120 / 120 Output Total 350 / 350 2000 / 2000 250 / 250 Balance -50 / -50 -1880 / -1880 -250 / -250 Lab / Micro Data Result Diagrams: 09/27/21 06:46 09/27/21 06:46 Labs: Laboratory Results - last 24 hr 09/27/21 06:46: WBC 9.3, RBC 5.35, Hgb 14.7, Hct 44.2, MCV 82.6, MCH 27.5, MCHC 33.3, RDW Std Deviation 38.7, RDW Coeff of Te 12.8, Plt Count 234, MPV 12.8 H, Immature Gran % (Auto) 1.400 H, Neut % (Auto) 82.4 H, Lymph % (Auto) 10.2 L, [place] % (Auto) 5.7, Eos % (Auto) 0.1, Baso % (Auto) 0.2, Absolute Neuts (auto) 7.7, Absolute Lymphs (auto) 0.95, Nucleated RBC % 0 09/27/21 06:46: Sodium 140, Potassium 4.5, Chloride 109 H, Carbon Dioxide 24.0, Anion Gap 7, BUN 41 H, Creatinine 0.87, Estim Creat Clear Calc 43.79, Est GFR (MDRD) Af Amer 80, Est GFR (MDRD) Non-Af 66, BUN/Creatinine Ratio 47.1 H, Glucose 98, Calcium 8.4 L, Total Bilirubin 0.50, AST 38 H, ALT 34, Alkaline Phosphatase 46, Total Protein 6.5, Albumin 2.1 L, Globulin 4.4 H, Albumin /Globulin Ratio 0.5 L Micro: Microbiology 09/22/21 05:20 Blood Culture (Wb) - Anticubital Left Blood Culture - Final No growth in 5 days. 09/21/21 16:32 Blood Culture (Wb) - Anticubital Left Blood Culture - Final No growth in 5 days. 09/24/21 10:00 Stool C. difficile DNA Amplification - Final 09/21/21 16:57 Urine, Clean Catch Urine Culture - Final Presumptive E. coli 09/21/21 15:10 Nasal Secretion SARS-CoV-2 Antigen (Rapid) - Final SARS-CoV-2 (COVID 19) Physical Exam Const alert Constitutional Narrative: Rolling her eyes at recommendations to use Acapella and incentive spirometer General Appearance: cooperative, in distress Positive for moderate and anxious Orientation / Consciousness: oriented to person; Negative for oriented to place, oriented to time or lethargic HEENT normocephalic and head/scalp atraumatic Eyes PERRL and EOMs intact bilaterally Neck supple and No nodes Chest inspection of chest normal Chest: symmetrical chest wall rise; Negative for crepitus Resp Auscultation: diminished lung sounds diffuse (Fair effort); Negative for rales, rhonchi or wheezes Cardio regular rate and regular rhythm GI normal to inspection, nondistended, normoactive bowel sounds Extremity General Extremity: Negative for clubbing, cyanosis or edema Skin no rashes or lesions noted Neuro CN's II-XII intact bilaterally Psych cooperative Attitude: withdrawn Activity / Motor Behavior: avoids eye contact Charges/Coding Procedures Hospitalists Procedures: 68133 Critial Care 1st Hr
--- NOTE | 2021-09-28 07:57 | NURSING ---
Tx pt to ICU with another RN and RT. pt stable. belongings sent with pt.
--- NOTE | 2021-09-28 09:45 | CASEMGMT ---
Addendum entered by Nu Dale 09/28/21 09:59: Social Work SW called daughter, Marly Zambrano, offered support to daughter. SW let daughter that SW is here should she have any questions, SW will continue to follow. GISELLE Hamlin Original Note: SW participated in ICU rounds, pt may still transfer to [facility]. SW called Mini at [facility], message letting her know that pt getting transferred to [facility] is still pending, will keep her posted as things go, and that pt was now transferred to ICU so is not close to being ready for discharge, even if she does not transfer to [facility]. SW will re-refer pt should she end up staying here and still need SNF that takes COVID+ patients. SW will continue to follow. GISELLE Hamlin
[2021-09-28] MEDS: Cefdinir 300 MG Capsule PO (11:26)
[2021-09-28] MEDS: Lisinopril 5 MG Tablet PO (11:26)
[2021-09-28] MEDS: dexAMETHasone 4 MG Tablet 6 MG PO (11:27)
[2021-09-28] MEDS: Citalopram 20 MG Tablet PO (11:27)
[2021-09-28] MEDS: Aspirin 81 MG TAB.CHEW PO (11:27)
[2021-09-28] MEDS: Enoxaparin 30 MG/0.3 ML Syringe SC ×2 (11:27→20:19)
[2021-09-28] MEDS: Multivitamins,Therapeutic Tablet 1 TABLET PO (11:27)
[2021-09-28 12:32] LABS: D-Dimer Quantitative (DVT/PE) 0.88 FEU/ug/m (0.27-0.49)
--- NOTE | 2021-09-28 12:58 | PCM.PN.ID ---
Physical Exam Narrative Moved to icu, feeling ok, no fever Const no apparent distress General Appearance: cooperative Resp Auscultation: diminished lung sounds Cardio regular rate and regular rhythm GI normal to inspection, nondistended, normoactive bowel sounds Skin no rashes or lesions noted ID ID: Route of nutrition/ use of supplements: [] Nutritional Intake: [] IV Site: [] Leon Catheter: [] Assessment & Plan Assessment/Plan (1) Pneumonia due to 2019-nCoV: PLAN: Covid with hypoxia. Completed abx for possible uti. Unvaccinated. Sx started around 09/12. Isolate until 10/02/21. Worsened O2, now PEs seen on CT. Reviewed EUA, discussed risks and benefits, we agree to start baricitinib. Will check labs now. Will follow
[2021-09-28 13:06] LABS: Absolute Lymphocyte Count 0.95 X10^3/uL (0.83-4.51); Absolute Neutrophil Count 8.8 X10^3/uL (2.0-7.7); Basophil# 0.03 X10^3/uL; Basophil% 0.3 % (0-1); Eosinophil# 0.13 X10^3/uL; Eosinophils% 1.2 % (0-5); Hematocrit 48.8 % (37-47); Hemoglobin 16.8 g/dL (12.0-15.0); Lymphocyte # 0.95 X10^3/ul (0.83-4.51); Lymphocyte % 8.8 % (19-41); Mean Corp Hgb Conc 34.4 g/dL (32-36); Mean Corpuscular Volume 81.3 fL (81-99); Mean Platelet Vol. 12.3 fl (6.2-12.0); Monocyte# 0.68 X10^3/uL; Monocyte% 6.3 % (0-10); NRBC Flagged by Analyzer 0 % (0-5); Neutrophil # 8.84 X10^3/uL (2.7-7.7); Neutrophil % 81.7 % (47-70); Platelet Count 284 K/mm3 (150-450); RBC Distribution Width CV 12.6 % (11.6-14.6); RBC Distribution Width SD 37.2 fl (35.1-43.9); White Blood Count 10.8 K/mm3 (4.4-11.0)
[2021-09-28 13:36] LABS: BNP,B-Type NATRIURETIC PEPTIDE 47.2 pg/mL (0-100)
[2021-09-28 13:37] LABS: ALB/GLOB Ratio 0.5 RATIO (0.9-2.4); AST(SGOT) 43 U/L (15-37); Alanine Aminotransfer ALT/SGPT 49 U/L (13-56); Albumin, Serum 2.4 g/dL (3.2-5.0); Alkaline Phosphatase 55 U/L (45-117); Anion Gap 9 (5-15); BUN 49 mg/dL (7-18); BUN/Creat Ratio 49.9 RATIO (10-20); Calcium,Total 8.6 mg/dL (8.5-10.1); Chloride 103 mmol/L (98-107); Creatinine, Serum 0.98 mg/dL (0.55-1.02); EST Glomerular Filtration Rate 58 mL/min (>60); Est Glom Filt Rate - Afr Amer 70 mL/min (>60); Estimated Creatinine Clearance 38.88 ml/min; Globulin 4.7 g/dL (2.2-4.2); Glucose 100 mg/dL (74-106); Potassium 4.1 mmol/L (3.5-5.1); Protein, Total 7.1 g/dL (6.4-8.2); Sodium Level 136 mmol/L (136-145)
[2021-09-28 13:42] LABS: Procalcitonin 0.12 ng/mL (0.00-0.09)
[2021-09-29] VITALS (31 sets, daily range): BP systolic 81–120; BP diastolic 28–78; PULSE 51–90; RESP 16–31; TEMP 36.6–37.3; O2SAT 90–97
[2021-09-29 05:34] LABS: ALB/GLOB Ratio 0.5 RATIO (0.9-2.4); AST(SGOT) 39 U/L (15-37); Alanine Aminotransfer ALT/SGPT 48 U/L (13-56); Albumin, Serum 2.5 g/dL (3.2-5.0); Alkaline Phosphatase 52 U/L (45-117); Anion Gap 8 (5-15); BUN 53 mg/dL (7-18); BUN/Creat Ratio 56.4 RATIO (10-20); Calcium,Total 8.6 mg/dL (8.5-10.1); Chloride 104 mmol/L (98-107); Creatinine, Serum 0.94 mg/dL (0.55-1.02); EST Glomerular Filtration Rate 61 mL/min (>60); Est Glom Filt Rate - Afr Amer 74 mL/min (>60); Estimated Creatinine Clearance 40.53 ml/min; Globulin 4.6 g/dL (2.2-4.2); Glucose 92 mg/dL (74-106); Potassium 4.5 mmol/L (3.5-5.1); Protein, Total 7.1 g/dL (6.4-8.2); Sodium Level 136 mmol/L (136-145)
[2021-09-29 06:07] LABS: Absolute Lymphocyte Count 1.51 X10^3/uL (0.83-4.51); Absolute Neutrophil Count 6.7 X10^3/uL (2.0-7.7); Basophil# 0.02 X10^3/uL; Basophil% 0.2 % (0-1); Eosinophil# 0.03 X10^3/uL; Eosinophils% 0.3 % (0-5); Hematocrit 48.7 % (37-47); Hemoglobin 16.7 g/dL (12.0-15.0); Lymphocyte # 1.51 X10^3/ul (0.83-4.51); Lymphocyte % 16.7 % (19-41); Mean Corp Hgb Conc 34.3 g/dL (32-36); Mean Corpuscular Hgb 28.1 pg (27.0-32.0); Mean Platelet Vol. 11.9 fl (6.2-12.0); Monocyte# 0.49 X10^3/uL; Monocyte% 5.4 % (0-10); NRBC Flagged by Analyzer 0 % (0-5); Neutrophil # 6.68 X10^3/uL (2.7-7.7); Platelet Count 286 K/mm3 (150-450); RBC Distribution Width CV 12.6 % (11.6-14.6); RBC Distribution Width SD 37.4 fl (35.1-43.9); Red Blood Count 5.94 M/mm3 (4.2-5.4)
--- NOTE | 2021-09-29 06:29 | PN.HOSP_ITS ---
Subjective Subjective Patient overnight with worsening increased oxygenation requirements although denies any worsening dyspnea complaints. Patient is positive fluid status since presentation therefore biophysics teacher planning diuretic pulse dosing. Patient transitioned again to BiPAP intermittently. Patient with ongoing barcitinib per ID. Patient denies fevers, chills, nausea, emesis, abdominal pain, chest pain. Objective Data Objective Data Vital Signs: Vital Signs Temp Pulse Resp BP Pulse Ox 98 F 59 L 19 H 117/57 L 94 09/29/21 04:00 09/29/21 04:26 09/29/21 04:00 09/29/21 04:00 09/29/21 04:00 Oxygen Flow Rate (L/min) [ 3 AMBULATING with Oxygen #3] Oxygen Flow Rate (L/min) [ 5 AMBULATING with Oxygen #2] Oxygen Flow Rate (L/min) [ 4 AMBULATING with Oxygen #1] Oxygen Flow Rate (L/min) [At 3 REST with Oxygen] Oxygen Flow Rate (L/min) 60 Oxygen Delivery Method Airvo Weight: 199 lb 15.348 oz Body Mass Index (BMI) 34.3 Intake & Output: Intake and Output for Last 24 Hours 09/27/21 09/28/21 09/29/21 23:59 23:59 23:59 Intake Total 120 / 120 Output Total 1999 / 1999 750 / 750 Balance -1880 / -1880 -750 / -750 Lab / Micro Data Result Diagrams: 09/29/21 04:52 09/29/21 04:52 Labs: Laboratory Results - last 24 hr 09/28/21 12:00: D-Dimer Quant (PE/DVT) 0.88 H* 09/28/21 12:50: WBC 10.8, RBC 6.00 H, Hgb 16.8 H, Hct 48.8 H, MCV 81.3, MCH 28.0, MCHC 34.4, RDW Std Deviation 37.2, RDW Coeff of Te 12.6, Plt Count 284, MPV 12.3 H, Immature Gran % (Auto) 1.700 H, Neut % (Auto) 81.7 H, Lymph % (Auto) 8.8 L, [place] % (Auto) 6.3, Eos % (Auto) 1.2, Baso % (Auto) 0.3, Absolute Neuts (auto) 8.8 H, Absolute Lymphs (auto) 0.95, Nucleated RBC % 0 09/28/21 12:50: Sodium 136, Potassium 4.1, Chloride 103, Carbon Dioxide 24.0, Anion Gap 9, BUN 49 H, Creatinine 0.98, Estim Creat Clear Calc 38.88, Est GFR (MDRD) Af Amer 70, Est GFR (MDRD) Non-Af 58 L, BUN/Creatinine Ratio 49.9 H, Glucose 100, Calcium 8.6, Total Bilirubin 0.40, AST 43 H, ALT 49, Alkaline Phosphatase 55, Total Protein 7.1, Albumin 2.4 L, Globulin 4.7 H, Albumin/Globulin Ratio 0.5 L 09/28/21 12:50: C-React Prot Ext Range 15.10 H 09/28/21 12:50: B-Natriuretic Peptide 47.2 09/28/21 12:50: Procalcitonin 0.12 H 09/29/21 04:52: WBC 9.0, RBC 5.94 H, Hgb 16.7 H, Hct 48.7 H, MCV 82.0, MCH 28.1, MCHC 34.3, RDW Std Deviation 37.4, RDW Coeff of Te 12.6, Plt Count 286, MPV 11.9, Immature Gran % (Auto) 3.400 H, Neut % (Auto) 74.0 H, Lymph % (Auto) 16.7 L, [place] % (Auto) 5.4, Eos % (Auto) 0.3, Baso % (Auto) 0.2, Absolute Neuts (auto) 6.7, Absolute Lymphs (auto) 1.51, Nucleated RBC % 0 09/29/21 04:52: Sodium 136, Potassium 4.5, Chloride 104, Carbon Dioxide 24.0, Anion Gap 8, BUN 53 H, Creatinine 0.94, Estim Creat Clear Calc 40.53, Est GFR (MDRD) Af Amer 74, Est GFR (MDRD) Non-Af 61, BUN/Creatinine Ratio 56.4 H, Glucose 92, Calcium 8.6, Total Bilirubin 0.50, AST 39 H, ALT 48, Alkaline Phosphatase 52, Total Protein 7.1, Albumin 2.5 L, Globulin 4.6 H, Albumin/Globulin Ratio 0.5 L Micro: Microbiology 09/22/21 05:20 Blood Culture (Wb) - Anticubital Left Blood Culture - Final No growth in 5 days. 09/21/21 16:32 Blood Culture (Wb) - Anticubital Left Blood Culture - Final No growth in 5 days. 09/24/21 10:00 Stool C. difficile DNA Amplification - Final 09/21/21 16:57 Urine, Clean Catch Urine Culture - Final Presumptive E. coli 09/21/21 15:10 Nasal Secretion SARS-CoV-2 Antigen (Rapid) - Final SARS-CoV-2 (COVID 19) Physical Exam Narrative Physical Examination: General: Awake, alert, oriented to self, place and some recent events, increasingly fatigued, able to carry on some conversation but ongoing increased work of breathing accessory muscle usage, currently transitioned back to air Vo but had been on BiPAP overnight, ongoing evidence of respiratory distress. Skin: Normal color, normal turgor, no icterus, no cyanosis. HEENT: AT/NC, EOMI, PERRLA, dry MM, currently transitioned back to air Vo. Lungs: Diminished diffusely, greater bases, increased respiratory rate, accessory muscle usage evident, evidence of distress, currently on [place], no rales, rhonchi or wheezing. Heart: Regular rate and rhythm; no gallop, rub audible. Abdomen: Soft, obese, NTTP, ND, distant normal BS. Extremities: No cyanosis, clubbing, or edema. Neurological: Patient awake, alert, oriented as noted, cognitive function mildly decreased from intact; pupils equally reactive to light and accommodation, cranial nerves II-XII grossly normal, moving all 4 extremities, no focal deficits, strength severely global decrease secondary to worsening respiratory status. Psychiatric: Affect appears further worsened, ongoing evidence of respiratory distress, no acute evidence of depressive or anxiety feelings. Assessment & Plan Assessment/Plan (1) Pneumonia due to 2019-nCoV: (2) Urinary tract infection: QUALIFIERS: Hematuria presence: without hematuria Urinary tract infection type: acute cystitis Qualified Code(s): N30.00 - Acute cystitis without hematuria PLAN: The patient is an 81 y/o F w/ PMHx: HTN, HLD, Diabetes mellitus type II, Anxiety and Depression who presents to the [facility] ED on 09/21/21 with reported significant decline with frequent falls and notable encephalopathy unable to provide appropriate history upon initial presentation with pulse oximeter noted to be 83% on room air with eventual diagnosis of COVID as well as UTI. #1. Acute Hypoxia Respiratory Failure secondary to Acute Bilateral Pneumonia secondary to Acute Viral Syndrome, COVID-19 with unvaccinated status: Admitted to medical surgical floor, infectious disease consulted and agreed with continue Rocephin for possible UTI, given symptoms and presentation ID suspected that she was over 10 days of onset of Covid symptoms secondary to resolution of most of her acute symptoms and low level oxygen requirements upon initial presentation with planned and quarantine date 10/02/2021 per infectious disease recommendation, initial Covid evaluation with elevated D-dimer with CTPA with no central or segmental pulmonary embolism with multifocal infiltrates consistent with Covid pneumonia, patient maintained on Decadron therapy, not candidate for remdesivir given timeline per ID. 09/26/2021 did initiate early discussions for discharge planning with family and recommended consideration for intermediate facility as patient had been mildly reticent. Family at that point had requested potential transfer to [facility] given they have family who work there however over time as she progressively worsened they discontinued transfer request. 09/27/21 patient with worsened status with continued increased oxygen requirements with transition to air Vo with pulmonary medicine consultation. 09/28/21 AM patient transition to the ICU as initial BiPAP trial given worsened respiratory status failed. Ongoing pulse dose Lasix administration per biophysics teacher 09/29/2021. Have confirmed with family ongoing full CODE STATUS upon ICU transition. Patient BiPAP rotation with airvo not very successful therefore if patient continues to decline likely will need intubation. #2. Acute E. Coli Urinary Tract Infection: UA upon ED evaluation remarkable, UCX with presumptive E. coli with near morel sensitivity, patient treated with IV Rocephin with transition to cefdinir given sensitivities with stop date last dose 09/29/2021 evening. #3. Acute encephalopathy, multifactorial, secondary to acute UTI and acute Covid pneumonia with hypoxia as noted: CT brain with no acute intracranial hemorrhage or mass-effect, central parenchymal volume loss with white matter changes that are nonspecific likely associate with chronic small vessel ischemic change, small right frontal cavernous angioma incidentally noted, continue treatment of #1, #2, maintain on fall precautions, PT and OT consultations as well as case management for discharge planning. #4. Acute renal insufficiency: Secondary to acute presentation #1, #2. Admission BUN/Cr 38/1.41, prior baseline creatinine noted to be primarily 0.9- 1.1, judiciously hydrated, avoid aggressive hydration given number 1, 09/29/21 BUN/creatinine 53/0.94. #5. Incidental small right frontal cavernous angioma: Grossly appears stable, noted on follow-up CT of the head, continue outpatient follow-up. #6. Hypertension: Continue home regimen including lisinopril with hold parameters as needed, PRN hydralazine. #7. Anxiety and depression: We will continue patient home citalopram regimen. #8. Obesity: Weight loss and lifestyle changes encouraged. #9. DVT prophylaxis: SCDs, Lovenox. #10. CODE STATUS: 09/28/2021 confirmed Full Code status with family as noted above. Charges/Coding Visit Charges Inpatient E&M: 46457 Subs Hosp L3
[2021-09-29] MEDS: Enoxaparin 30 MG/0.3 ML Syringe SC ×2 (10:50→23:36)
[2021-09-29] MEDS: Citalopram 20 MG Tablet PO (10:50)
[2021-09-29] MEDS: Multivitamins,Therapeutic Tablet 1 TABLET PO (10:50)
[2021-09-29] MEDS: dexAMETHasone 4 MG Tablet 6 MG PO (10:50)
[2021-09-29] MEDS: Lisinopril 5 MG Tablet PO (10:50)
[2021-09-29] MEDS: Aspirin 81 MG TAB.CHEW PO (10:50)
--- NOTE | 2021-09-29 11:40 | CASEMGMT ---
SW received an email from Mini at [place]. If the plan continues to be [facility] for pt at discharge, we would need to get denials for 3 in network facilities before pt's insurance would consider a one time comtract with [facility]. GISELLE Hamlin
--- NOTE | 2021-09-29 12:41 | PN.CC_ITS ---
Assessment & Plan Assessment/Plan (1) Pneumonia due to 2019-nCoV: (2) Declining functional status: (3) Hypertension: PLAN: RECOMMENDATIONS: 1. Continue Decadron and baricitinib. Not Remdesivir candidate 2. Complete antibiotics for UTI 3. Potential intubation, especially with noncompliance with pulmonary toileting 4. Challenge with diuretics pending chemistries 5. Continue to discuss goals of therapy given noncongruence IMPRESSIONS: 1. Acute hypoxic respiratory failure secondary to COVID-19 pneumonia Patient with worsening in oxygenation status over the last 24 to 48 hours. Patient appears to be almost 4 L positive over the course of the hospitalization. We will challenge with diuretics. Patient has been reinit iated on BiPAP therapy intermittently. Risk for intubation remains high given noncompliance with conservative measures. Patient started on baricitinib by infectious disease. 2. Acute E. coli UTI Largely sensitive E. coli noted from urine. Unclear baseline mentation, but this could be leading to some confusion. Patient is on appropriate antibiotics at this time. It is unlikely that this is adding to patient's respiratory condition, but may be affecting mentation. No family at the bedside to describe baseline mentation. 3. Acute encephalopathy Multiple possible etiologies. Patient does have an acute UTI and Covid pneumonia leading to hypoxia. Other possibility including small vessel ischemic changes and a frontal cavernous angioma may also be adding to current situation. Unclear baseline at this time. Recommend delirium protocol. 4. Hypertension/anxiety/depression/obesity/unclear vaccinated status Complicates care, management and prognosis. Okay to continue with baseline medications from my perspective. Patient continues to report that she wants everything done, but will not comply with incentive spirometer and Acapella as recommended. This does increase her risk of a bad outcome. TIME: 32 minutes critical care time spent addressing patient's acute hypoxic respiratory failure, UTI, encephalopathy, clarification of CODE STATUS, review of all data and collaboration with care team Subjective Subjective Patient has improved since admission to the intensive care unit. Patient was placed on BiPAP for several hours yesterday and was able to tolerate Airvo ove rnight. Patient continues to refuse reapplication of the BiPAP. Patient also states that she is compliant with her incentive spirometer despite it being in her back on the windowsill. Patient is reporting a cough. Nursing has reported poor intake, but patient has been on clears secondary to respiratory status. Objective Data Objective Data Vital Signs: Vital Signs Temp Pulse Resp BP Pulse Ox 36.8 C 58 L 18 108/65 92 09/29/21 06:00 09/29/21 07:31 09/29/21 07:31 09/29/21 06:00 09/29/21 07:31 Oxygen Flow Rate (L/min) [ 3 AMBULATING with Oxygen #3] Oxygen Flow Rate (L/min) [ 5 AMBULATING with Oxygen #2] Oxygen Flow Rate (L/min) [ 4 AMBULATING with Oxygen #1] Oxygen Flow Rate (L/min) [At 3 REST with Oxygen] Oxygen Flow Rate (L/min) 60 Oxygen Delivery Method Airvo Weight: 89.5 kg Body Mass Index (BMI) 34.3 Intake & Output: Intake and Output for Last 24 Hours 09/27/21 09/28/21 09/29/21 23:59 23:59 23:59 Intake Total 120 / 120 150 / 150 Output Total 1999 / 1999 750 / 750 275 / 275 Balance -1880 / -1880 -750 / -750 -125 / -125 Lab / Micro Data Result Diagrams: 09/29/21 04:52 09/29/21 04:52 Labs: Laboratory Results - last 24 hr 09/28/21 12:50: WBC 10.8, RBC 6.00 H, Hgb 16.8 H, Hct 48.8 H, MCV 81.3, MCH 28.0, MCHC 34.4, RDW Std Deviation 37.2, RDW Coeff of Te 12.6, Plt Count 284, MPV 12.3 H, Immature Gran % (Auto) 1.700 H, Neut % (Auto) 81.7 H, Lymph % (Auto) 8.8 L, [place] % (Auto) 6.3, Eos % (Auto) 1.2, Baso % (Auto) 0.3, Absolute Neuts (auto) 8.8 H, Absolute Lymphs (auto) 0.95, Nucleated RBC % 0 09/28/21 12:50: Sodium 136, Potassium 4.1, Chloride 103, Carbon Dioxide 24.0, Anion Gap 9, BUN 49 H, Creatinine 0.98, Estim Creat Clear Calc 38.88, Est GFR (MDRD) Af Amer 70, Est GFR (MDRD) Non-Af 58 L, BUN/Creatinine Ratio 49.9 H, Glucose 100, Calcium 8.6, Total Bilirubin 0.40, AST 43 H, ALT 49, Alkaline Phosphatase 55, Total Protein 7.1, Albumin 2.4 L, Globulin 4.7 H, Albumin/Globulin Ratio 0.5 L 09/28/21 12:50: C-React Prot Ext Range 15.10 H 09/28/21 12:50: B-Natriuretic Peptide 47.2 09/28/21 12:50: Procalcitonin 0.12 H 09/29/21 04:52: WBC 9.0, RBC 5.94 H, Hgb 16.7 H, Hct 48.7 H, MCV 82.0, MCH 28.1, MCHC 34.3, RDW Std Deviation 37.4, RDW Coeff of Te 12.6, Plt Count 286, MPV 11.9, Immature Gran % (Auto) 3.400 H, Neut % (Auto) 74.0 H, Lymph % (Auto) 16.7 L, [place] % (Auto) 5.4, Eos % (Auto) 0.3, Baso % (Auto) 0.2, Absolute Neuts (auto) 6.7, Absolute Lymphs (auto) 1.51, Nucleated RBC % 0 09/29/21 04:52: Sodium 136, Potassium 4.5, Chloride 104, Carbon Dioxide 24.0, Anion Gap 8, BUN 53 H, Creatinine 0.94, Estim Creat Clear Calc 40.53, Est GFR (MDRD) Af Amer 74, Est GFR (MDRD) Non-Af 61, BUN/Creatinine Ratio 56.4 H, Glucose 92, Calcium 8.6, Total Bilirubin 0.50, AST 39 H, ALT 48, Alkaline Phosphatase 52, Total Protein 7.1, Albumin 2.5 L, Globulin 4.6 H, Albumin/Globulin Ratio 0.5 L Micro: Microbiology 09/22/21 05:20 Blood Culture (Wb) - Anticubital Left Blood Culture - Final No growth in 5 days. 09/21/21 16:32 Blood Culture (Wb) - Anticubital Left Blood Culture - Final No growth in 5 days. 09/24/21 10:00 Stool C. difficile DNA Amplification - Final 09/21/21 16:57 Urine, Clean Catch Urine Culture - Final Presumptive E. coli 09/21/21 15:10 Nasal Secretion SARS-CoV-2 Antigen (Rapid) - Final SARS-CoV-2 (COVID 19) Physical Exam Const alert Constitutional Narrative: Rolling her eyes at recommendations to use Acapella and incentive spirometer General Appearance: cooperative, in distress Positive for mild and anxious Orientation / Consciousness: oriented to person; Negative for oriented to place, oriented to time or lethargic HEENT normocephalic and head/scalp atraumatic Eyes PERRL and EOMs intact bilaterally Neck supple and No nodes Chest inspection of chest normal Chest: symmetrical chest wall rise; Negative for crepitus Resp Auscultation: diminished lung sounds diffuse (Fair effort); Negative for rales, rhonchi or wheezes Cardio regular rate and regular rhythm GI normal to inspection, nondistended, normoactive bowel sounds Extremity General Extremity: Negative for clubbing, cyanosis or edema Skin no rashes or lesions noted Neuro CN's II-XII intact bilaterally Psych cooperative Attitude: withdrawn Activity / Motor Behavior: avoids eye contact Charges/Coding Procedures Hospitalists Procedures: [id number] Critial Care 1st Hr
[2021-09-29] MEDS: Furosemide 40 MG/4 ML Vial IV (14:53)
[2021-09-30] VITALS (27 sets, daily range): BP systolic 92–127; BP diastolic 54–76; PULSE 52–88; RESP 16–27; TEMP 36.3–36.8; O2SAT 92–100
[2021-09-30 04:55] LABS: Absolute Lymphocyte Count 1.91 X10^3/uL (0.83-4.51); Basophil# 0.03 X10^3/uL; Basophil% 0.2 % (0-1); Eosinophil# 0.03 X10^3/uL; Eosinophils% 0.2 % (0-5); Hematocrit 45.6 % (37-47); Hemoglobin 15.6 g/dL (12.0-15.0); Lymphocyte # 1.91 X10^3/ul (0.83-4.51); Lymphocyte % 15.9 % (19-41); Mean Corp Hgb Conc 34.2 g/dL (32-36); Mean Corpuscular Hgb 27.9 pg (27.0-32.0); Mean Corpuscular Volume 81.4 fL (81-99); Monocyte# 0.49 X10^3/uL; Monocyte% 4.1 % (0-10); NRBC Flagged by Analyzer 0 % (0-5); Neutrophil # 9.03 X10^3/uL (2.7-7.7); Platelet Count 316 K/mm3 (150-450); RBC Distribution Width CV 12.5 % (11.6-14.6); RBC Distribution Width SD 37.3 fl (35.1-43.9)
[2021-09-30 05:11] LABS: ALB/GLOB Ratio 0.5 RATIO (0.9-2.4); AST(SGOT) 32 U/L (15-37); Alanine Aminotransfer ALT/SGPT 46 U/L (13-56); Albumin, Serum 2.4 g/dL (3.2-5.0); Alkaline Phosphatase 49 U/L (45-117); Anion Gap 6 (5-15); BUN 59 mg/dL (7-18); BUN/Creat Ratio 56.7 RATIO (10-20); Calcium,Total 8.6 mg/dL (8.5-10.1); Chloride 102 mmol/L (98-107); Creatinine, Serum 1.04 mg/dL (0.55-1.02); EST Glomerular Filtration Rate 54 mL/min (>60); Est Glom Filt Rate - Afr Amer 65 mL/min (>60); Estimated Creatinine Clearance 36.63 ml/min; Globulin 4.4 g/dL (2.2-4.2); Glucose 95 mg/dL (74-106); Potassium 4.2 mmol/L (3.5-5.1); Protein, Total 6.8 g/dL (6.4-8.2); Sodium Level 136 mmol/L (136-145)
--- NOTE | 2021-09-30 06:53 | PN.HOSP_ITS ---
Subjective Subjective Patient with continued decline with worsened mental status, increased confusion, transitioning between air Vo and BiPAP however she is not extremely tolerant, frequently moving her devices. Patient continued on Decadron and baricitinib. Patient has not been using incentive spirometry and is extremely difficult to encourage mobilization. Patient denies fevers, chills, nausea, emesis, abdominal pain, chest pain. Patient only requested specifically for coffee with cream and sugar. Objective Data Objective Data Vital Signs: Vital Signs Temp Pulse Resp BP Pulse Ox 98.2 F 56 L 21 H 105/63 94 09/30/21 00:00 09/30/21 06:00 09/30/21 06:00 09/30/21 06:00 09/30/21 06:00 Oxygen Flow Rate (L/min) [ 3 AMBULATING with Oxygen #3] Oxygen Flow Rate (L/min) [ 5 AMBULATING with Oxygen #2] Oxygen Flow Rate (L/min) [ 4 AMBULATING with Oxygen #1] Oxygen Flow Rate (L/min) [At 3 REST with Oxygen] Oxygen Flow Rate (L/min) 60 Oxygen Delivery Method Airvo Weight: 194 lb 10.691 oz Body Mass Index (BMI) 34.3 Intake & Output: Intake and Output for Last 24 Hours 09/28/21 09/29/21 09/30/21 23:59 23:59 23:59 Intake Total 150 / 150 150 / 150 Output Total 750 / 750 1040 / 1040 400 / 400 Balance -750 / -750 -890 / -890 -250 / -250 Lab / Micro Data Result Diagrams: 09/30/21 04:40 09/30/21 04:40 Labs: Laboratory Results - last 24 hr 09/30/21 04:40: WBC 12.0 H, RBC 5.60 H, Hgb 15.6 H, Hct 45.6, MCV 81.4, MCH 27.9, MCHC 34.2, RDW Std Deviation 37.3, RDW Coeff of Te 12.5, Plt Count 316, MPV 12.0, Immature Gran % (Auto) 4.600 H, Neut % (Auto) 75.0 H, Lymph % (Auto) 15.9 L, [place] % (Auto) 4.1, Eos % (Auto) 0.2, Baso % (Auto) 0.2, Absolute Neuts (auto) 9.0 H, Absolute Lymphs (auto) 1.91, Nucleated RBC % 0 09/30/21 04:40: Sodium 136, Potassium 4.2, Chloride 102, Carbon Dioxide 28.0, Anion Gap 6, BUN 59 H, Creatinine 1.04 H, Estim Creat Clear Calc 36.63, Est GFR (MDRD) Af Amer 65, Est GFR (MDRD) Non-Af 54 L, BUN/Creatinine Ratio 56.7 H, Glucose 95, Calcium 8.6, Total Bilirubin 0.40, AST 32, ALT 46, Alkaline Phosphatase 49, Total Protein 6.8, Albumin 2.4 L, Globulin 4.4 H, Albumin/Globulin Ratio 0.5 L Micro: Microbiology 09/22/21 05:20 Blood Culture (Wb) - Anticubital Left Blood Culture - Final No growth in 5 days. 09/21/21 16:32 Blood Culture (Wb) - Anticubital Left Blood Culture - Final No growth in 5 days. 09/24/21 10:00 Stool C. difficile DNA Amplification - Final 09/21/21 16:57 Urine, Clean Catch Urine Culture - Final Presumptive E. coli 09/21/21 15:10 Nasal Secretion SARS-CoV-2 Antigen (Rapid) - Final SARS-CoV-2 (COVID 19) Physical Exam Narrative Physical Examination: General: Patient awakens to stimuli, alert when awoken, oriented to self and some events but increased confusion, significantly more fatigued than prior, ongoing increased work of breathing and accessory muscle usage, currently on air Vo. Skin: Normal color, normal turgor, no icterus, no cyanosis. HEENT: AT/NC, EOMI, PERRLA, dry MM, currently on air Vo. Lungs: Diminished diffusely, greater bases, increased respiratory rate, accessory muscle usage evident, on airvo, no rales, rhonchi or wheezing. Heart: Regular rate and rhythm; no gallop, rub audible. Abdomen: Soft, obese, NTTP, ND, distant normal BS. Extremities: No cyanosis, clubbing, or edema. Neurological: Patient awake, alert, oriented as noted, cognitive function mildly decreased from intact; pupils equally reactive to light and accommodation, cranial nerves II-XII grossly normal, moving all 4 extremities, no focal deficits, strength severely global decrease secondary to worsening respiratory status. Psychiatric: Affect appears flat, significantly fatigued, no acute evidence of depressive or anxiety feelings. Assessment & Plan Assessment/Plan (1) Pneumonia due to 2019-nCoV: (2) Urinary tract infection: QUALIFIERS: Hematuria presence: without hematuria Urinary tract infection type: acute cystitis Qualified Code(s): N30.00 - Acute cystitis without hematuria PLAN: The patient is an 81 y/o F w/ PMHx: HTN, HLD, Diabetes mellitus type II, Anxiety and Depression who presents to the [facility] ED on 09/21/21 with reported significant decline with frequent falls and notable encephalopathy unable to provide appropriate history upon initial presentation with pulse oximeter noted to be 83% on room air with eventual diagnosis of COVID as well as UTI. #1. Acute Hypoxia Respiratory Failure secondary to Acute Bilateral Pneumonia secondary to Acute Viral Syndrome, COVID-19 with unvaccinated status: Admitted to medical surgical floor, infectious disease consulted and agreed with continue Rocephin for possible UTI, given symptoms and presentation ID suspected that she was over 10 days of onset of Covid symptoms secondary to resolution of most of her acute symptoms and low level oxygen requirements upon initial presentation with planned and quarantine date 10/02/2021 per infectious disease r ecommendation, initial Covid evaluation with elevated D-dimer with CTPA with no central or segmental pulmonary embolism with multifocal infiltrates consistent with Covid pneumonia, patient maintained on Decadron therapy, not candidate for remdesivir given timeline per ID. 09/26/2021 did initiate early discussions for discharge planning with family and recommended consideration for intermediate facility as patient had been mildly reticent. Family at that point had requested potential transfer to [facility] given they have family who work there however over time as she progressively worsened they discontinued transfer request. 09/27/21 patient with worsened status with continued increased oxygen requirements with transition to air Vo with pulmonary medicine consultation. 09/28/21 AM patient transition to the ICU with attempts to toggle between airvo and BiPAP. Patient CODE STATUS again confirmed full code. Patient initiated on baricitinib with infectious disease following. #2. Acute E. Coli Urinary Tract Infection: UA upon ED evaluation remarkable, UCX with presumptive E. coli with near morel sensitivity, patient treated with IV Rocephin with transition to cefdinir given sensitivities with stop date last dose 09/29/2021 evening. #3. Acute encephalopathy, multifactorial, secondary to acute UTI and acute Covid pneumonia with hypoxia as noted: CT brain with no acute intracranial hemorrhage or mass-effect, central parenchymal volume loss with white matter changes that are nonspecific likely associate with chronic small vessel ischemic change, small right frontal cavernous angioma incidentally noted, continue treatment of #1, #2, maintain on fall precautions, PT and OT consultations as well as case management for discharge planning. #4. Acute renal insufficiency: Secondary to acute presentation #1, #2. Admission BUN/Cr 38/1.41, prior baseline creatinine noted to be primarily 0.9- 1.1, judiciously hydrated, avoid aggressive hydration given #1, 09/30/21 BUN/cre atinine 59/1.04. #5. Incidental small right frontal cavernous angioma: Grossly appears stable, noted on follow-up CT of the head, continue outpatient follow-up. #6. Hypertension: Continue home regimen including lisinopril with hold parameters as needed, PRN hydralazine. #7. Anxiety and depression: We will continue patient home citalopram regimen. #8. Obesity: Weight loss and lifestyle changes encouraged. #9. DVT prophylaxis: SCDs, Lovenox. #10. CODE STATUS: 09/28/2021 confirmed Full Code status with family as noted above. Charges/Coding Visit Charges Inpatient E&M: 11656 Subs Hosp L2
--- NOTE | 2021-09-30 07:03 | PCM.PN.INT ---
Assessment & Plan Assessment/Plan (1) Pneumonia due to 2019-nCoV: (2) Declining functional status: (3) Hypertension: PLAN: RECOMMENDATIONS: 1. Continue to wean FiO2 to maintain oxygen saturations at or above 90%. 2. Continue Lovenox twice daily as ordered. 3. Continue Decadron and baricitinib to complete treatment courses. 4. Encourage incentive spirometer use and mobilize patient as tolerated. 5. Diuretics as tolerated by hemodynamics and renal function. IMPRESSIONS: 1. Acute hypoxic respiratory failure secondary to COVID-19 pneumonia The patient was initially admitted to the hospital on September 21 and experience worsening decline in her respiratory status, ultimately requiring transfer to the intensive care unit. While the patient was initially maintained on Pap therapy, she has been weaned to heated high flow oxygen. Plan to continue the aforementioned and wean FiO2 for saturations greater than 90%. The patient will be continued on Decadron and baricitinib to complete treatment courses. Continue pharmacologic prophylaxis with Lovenox twice daily as ordered. Encourage incentive spirometer use and mobilize patient as tolerated. Diuretics can be utilized, as tolerated by hemodynamics and renal function, to maintain euvolemic state. 2. Acute encephalopathy Like related to acute infectious etiologies. CT head was largely unremarkable. The patient appears to be neurologically intact. Continue supportive measures as noted above. 3. Hypertension/anxiety/depression/obesity/unclear vaccinated status Complicates care, management and prognosis. Okay to continue with baseline medications from my perspective. This note was generated with [id number] dictation software. It may contain incorrect words, spelling, and punctuation that were not noted in checking the note before signing. Subjective Subjective The patient was seen and examined at the bedside this morning. Events from the last 24 hours have been reviewed. The patient is currently afebrile, hemodynamically stable and maintaining appropriate oxygen saturations on Airvo heated high flow with an FiO2 requirement of 70% and flow rate of 60 L/min. No overnight issues were identified by the nursing staff. The patient remains on twice daily Lovenox, Decadron and baricitinib. She is without any specific complaints this morning. Objective Data Objective Data The patient's most recent lab work, culture data and imaging studies have all been personally reviewed. Rapid coronavirus antigen testing was positive on September 21. Vital Signs: Vital Signs Temp Pulse Resp BP Pulse Ox 98.2 F 56 L 21 H 105/63 94 09/30/21 00:00 09/30/21 06:00 09/30/21 06:00 09/30/21 06:00 09/30/21 06:00 Oxygen Flow Rate (L/min) [ 3 AMBULATING with Oxygen #3] Oxygen Flow Rate (L/min) [ 5 AMBULATING with Oxygen #2] Oxygen Flow Rate (L/min) [ 4 AMBULATING with Oxygen #1] Oxygen Flow Rate (L/min) [At 3 REST with Oxygen] Oxygen Flow Rate (L/min) 60 Oxygen Delivery Method Airvo Weight: 88.3 kg Body Mass Index (BMI) 34.3 Intake & Output: Intake and Output for Last 24 Hours 09/28/21 09/29/21 09/30/21 23:59 23:59 23:59 Intake Total 150 / 150 150 / 150 Output Total 750 / 750 1040 / 1040 400 / 400 Balance -750 / -750 -890 / -890 -250 / -250 Lab / Micro Data Attestation: I reviewed the patient's lab results. Result Diagrams: 09/30/21 04:40 09/30/21 04:40 Labs: Laboratory Results - last 24 hr 09/30/21 04:40: WBC 12.0 H, RBC 5.60 H, Hgb 15.6 H, Hct 45.6, MCV 81.4, MCH 27.9, MCHC 34.2, RDW Std Deviation 37.3, RDW Coeff of Te 12.5, Plt Count 316, MPV 12.0, Immature Gran % (Auto) 4.600 H, Neut % (Auto) 75.0 H, Lymph % (Auto) 15.9 L, Cataño % (Auto) 4.1, Eos % (Auto) 0.2, Baso % (Auto) 0.2, Absolute Neuts (auto) 9.0 H, Absolute Lymphs (auto) 1.91, Nucleated RBC % 0 09/30/21 04:40: Sodium 136, Potassium 4.2, Chloride 102, Carbon Dioxide 28.0, Anion Gap 6, BUN 59 H, Creatinine 1.04 H, Estim Creat Clear Calc 36.63, Est GFR (MDRD) Af Amer 65, Est GFR (MDRD) Non-Af 54 L, BUN/Creatinine Ratio 56.7 H, Glucose 95, Calcium 8.6, Total Bilirubin 0.40, AST 32, ALT 46, Alkaline Phosphatase 49, Total Protein 6.8, Albumin 2.4 L, Globulin 4.4 H, Albumin/Globulin Ratio 0.5 L Micro: Microbiology 09/22/21 05:20 Blood Culture (Wb) - Anticubital Left Blood Culture - Final No growth in 5 days. 09/21/21 16:32 Blood Culture (Wb) - Anticubital Left Blood Culture - Final No growth in 5 days. 09/24/21 10:00 Stool C. difficile DNA Amplification - Final 09/21/21 16:57 Urine, Clean Catch Urine Culture - Final Presumptive E. coli 09/21/21 15:10 Nasal Secretion SARS-CoV-2 Antigen (Rapid) - Final SARS-CoV-2 (COVID 19) Physical Exam Const alert and no apparent distress Constitutional Narrative: Airvo cannula currently in place. General Appearance: cooperative Nutritional Appearance: obese HEENT normocephalic and head/scalp atraumatic Eyes PERRL, EOMs intact bilaterally and conjunctivae normal Neck supple General: trachea midline Chest inspection of chest normal Resp Auscultation: diminished lung sounds; Negative for rales, rhonchi or wheezes Cardio regular rate and regular rhythm GI normal to inspection, nondistended, normoactive bowel sounds Extremity no clubbing, cyanosis or edema Skin no rashes or lesions noted Neuro CN's II-XII intact bilaterally, moves all extremities and no focal motor deficits Psych Mood & Affect: flat affect Charges/Coding Visit Charges Inpatient E&M: 35805 Subs Hosp L3
[2021-09-30] MEDS: Multivitamins,Therapeutic Tablet 1 TABLET PO (10:35)
[2021-09-30] MEDS: Aspirin 81 MG TAB.CHEW PO (10:35)
[2021-09-30] MEDS: Citalopram 20 MG Tablet PO (10:35)
[2021-09-30] MEDS: dexAMETHasone 4 MG Tablet 6 MG PO (10:35)
[2021-09-30] MEDS: Enoxaparin 30 MG/0.3 ML Syringe SC ×2 (10:36→21:26)
--- NOTE | 2021-09-30 10:36 | CASEMGMT ---
Social Work SW attended ICU rounds. At this time, transfer to [facility] is no longer being considered. Pt is not ready for discharge at this time, however SW placed call to pt dgt Marly to update on discharge options. SW explained that [facility] is not in network with pt insurance and if pt would want to go there, three denials from other in network facilities would be needed. SW also explained that since pt is on day 10 since positive covid test, more SNF options may be available. BALA reviews list of SNF providers who are in network with pt insurance. Marly would be interested in [facility] or the [facility]. Phone calls to both facilities. [facility] would consider someone 14 days past positive covid test, [facility] would consider someone 10 days past positive covid test. Marly made aware of this and appreciative of information. Pt is not ready for d/c at this time, referrals not yet sent. BALA will continue to follow for d/c planning. TAHIR Gabriel
[2021-10-01] VITALS (17 sets, daily range): BP systolic 98–120; BP diastolic 55–68; PULSE 67–96; RESP 16–20; TEMP 36.6–36.8; O2SAT 92–96
[2021-10-01 04:14] LABS: Absolute Lymphocyte Count 2.06 X10^3/uL (0.83-4.51); Absolute Neutrophil Count 11.9 X10^3/uL (2.0-7.7); Basophil# 0.04 X10^3/uL; Basophil% 0.3 % (0-1); Eosinophil# 0.03 X10^3/uL; Eosinophils% 0.2 % (0-5); Hemoglobin 15.3 g/dL (12.0-15.0); Lymphocyte # 2.06 X10^3/ul (0.83-4.51); Lymphocyte % 13.3 % (19-41); Mean Corpuscular Hgb 27.5 pg (27.0-32.0); Mean Corpuscular Volume 80.8 fL (81-99); Mean Platelet Vol. 11.9 fl (6.2-12.0); Monocyte# 0.72 X10^3/uL; Monocyte% 4.6 % (0-10); NRBC Flagged by Analyzer 0 % (0-5); Neutrophil # 11.93 X10^3/uL (2.7-7.7); Neutrophil % 76.7 % (47-70); Platelet Count 327 K/mm3 (150-450); RBC Distribution Width CV 12.3 % (11.6-14.6); Red Blood Count 5.57 M/mm3 (4.2-5.4); White Blood Count 15.5 K/mm3 (4.4-11.0)
[2021-10-01 04:31] LABS: ALB/GLOB Ratio 0.6 RATIO (0.9-2.4); AST(SGOT) 31 U/L (15-37); Alanine Aminotransfer ALT/SGPT 43 U/L (13-56); Albumin, Serum 2.4 g/dL (3.2-5.0); Alkaline Phosphatase 51 U/L (45-117); Anion Gap 5 (5-15); BUN 50 mg/dL (7-18); BUN/Creat Ratio 51.1 RATIO (10-20); Calcium,Total 8.3 mg/dL (8.5-10.1); Chloride 101 mmol/L (98-107); Creatinine, Serum 0.98 mg/dL (0.55-1.02); EST Glomerular Filtration Rate 58 mL/min (>60); Est Glom Filt Rate - Afr Amer 70 mL/min (>60); Estimated Creatinine Clearance 38.88 ml/min; Globulin 4.1 g/dL (2.2-4.2); Glucose 97 mg/dL (74-106); Potassium 3.9 mmol/L (3.5-5.1); Protein, Total 6.5 g/dL (6.4-8.2); Sodium Level 134 mmol/L (136-145)
--- NOTE | 2021-10-01 06:14 | PN.CC_ITS ---
Assessment & Plan Assessment/Plan (1) Pneumonia due to 2019-nCoV: (2) Declining functional status: (3) Hypertension: PLAN: RECOMMENDATIONS: 1. Continue to wean supplemental oxygen to maintain saturations at or above 90%. 2. Continue Lovenox twice daily as ordered. 3. Continue Decadron and baricitinib to complete treatment courses. 4. Encourage incentive spirometer use and mobilize patient as tolerated. 5. Diuretics as tolerated by hemodynamics and renal function. IMPRESSIONS: 1. Acute hypoxic respiratory failure secondary to COVID-19 pneumonia The patient was initially admitted to the hospital on September 21 and experience worsening decline in her respiratory status, ultimately requiring transfer to the intensive care unit. While the patient was initially maintained on Pap therapy, she has been weaned to high flow oxygen. Plan to continue the aforementioned and wean supplemental oxygen for saturations greater than 90%. The patient will be continued on Decadron and baricitinib to complete treatment courses. Continue pharmacologic prophylaxis with Lovenox twice daily as ordered. Encourage incentive spirometer use and mobilize patient as tolerated. Diuretics can be utilized, as tolerated by hemodynamics and renal function, to maintain euvolemic state. 2. Acute encephalopathy Resolved. Like related to acute infectious etiologies. CT head was largely unremarkable. The patient appears to be neurologically intact. Continue supportive measures as noted above. 3. Hypertension/anxiety/depression/obesity/unclear vaccinated status Complicates care, management and prognosis. Okay to continue with baseline medications from my perspective. This note was generated with [employer] dictation software. It may contain incorrect words, spelling, and punctuation that were not noted in checking the note before signing. Subjective Subjective The patient was seen and examined at the bedside this morning. Events from the last 24 hours have been reviewed. The patient is currently afebrile, hemodynamically stable and maintaining appropriate oxygen saturations on 8 L/min high flow cannula. No overnight issues were identified by the nursing staff. The patient remains on twice daily Lovenox, Decadron and baricitinib. Objective Data Objective Data The patient's most recent lab work, culture data and imaging studies have all been personally reviewed. Rapid coronavirus antigen testing was positive on September 21. Vital Signs: Vital Signs Temp Pulse Resp BP Pulse Ox 98.2 F 67 20 H 120/68 94 10/01/21 04:00 10/01/21 04:00 10/01/21 04:00 10/01/21 04:00 10/01/21 05:08 Oxygen Flow Rate (L/min) [ 3 AMBULATING with Oxygen #3] Oxygen Flow Rate (L/min) [ 5 AMBULATING with Oxygen #2] Oxygen Flow Rate (L/min) [ 4 AMBULATING with Oxygen #1] Oxygen Flow Rate (L/min) [At 3 REST with Oxygen] Oxygen Flow Rate (L/min) 8 Oxygen Delivery Method Nasal Cannula Weight: 88.4 kg Body Mass Index (BMI) 34.3 Intake & Output: Intake and Output for Last 24 Hours 09/29/21 09/30/21 10/01/21 23:59 23:59 23:59 Intake Total 150 / 150 150 / 350 200 / 200 Output Total 1040 / 1040 750 / 1050 500 / 500 Balance -890 / -890 -600 / -700 -300 / -300 Lab / Micro Data Attestation: I reviewed the patient's lab results. Result Diagrams: 10/01/21 04:00 10/01/21 04:00 Labs: Laboratory Results - last 24 hr 10/01/21 04:00: WBC 15.5 H, RBC 5.57 H, Hgb 15.3 H, Hct 45.0, MCV 80.8 L, MCH 27.5, MCHC 34.0, RDW Std Deviation 36.0, RDW Coeff of Te 12.3, Plt Count 327, MPV 11.9, Immature Gran % (Auto) 4.900 H, Neut % (Auto) 76.7 H, Lymph % (Auto) 13.3 L, [place] % (Auto) 4.6, Eos % (Auto) 0.2, Baso % (Auto) 0.3, Absolute Neuts (auto) 11.9 H, Absolute Lymphs (auto) 2.06, Nucleated RBC % 0 10/01/21 04:00: Sodium 134 L, Potassium 3.9, Chloride 101, Carbon Dioxide 28.0, Anion Gap 5, BUN 50 H, Creatinine 0.98, Estim Creat Clear Calc 38.88, Est GFR (MDRD) Af Amer 70, Est GFR (MDRD) Non-Af 58 L, BUN/Creatinine Ratio 51.1 H, Glucose 97, Calcium 8.3 L, Total Bilirubin 0.50, AST 31, ALT 43, Alkaline Phosphatase 51, Total Protein 6.5, Albumin 2.4 L, Globulin 4.1, Albumin/Globulin Ratio 0.6 L Micro: Microbiology 09/22/21 05:20 Blood Culture (Wb) - Anticubital Left Blood Culture - Final No growth in 5 days. 09/21/21 16:32 Blood Culture (Wb) - Anticubital Left Blood Culture - Final No growth in 5 days. 09/24/21 10:00 Stool C. difficile DNA Amplification - Final 09/21/21 16:57 Urine, Clean Catch Urine Culture - Final Presumptive E. coli 09/21/21 15:10 Nasal Secretion SARS-CoV-2 Antigen (Rapid) - Final SARS-CoV-2 (COVID 19) Physical Exam Const alert and no apparent distress General Appearance: cooperative Nutritional Appearance: obese HEENT normocephalic and head/scalp atraumatic Eyes PERRL, EOMs intact bilaterally and conjunctivae normal Neck supple General: trachea midline Chest inspection of chest normal Resp Auscultation: diminished lung sounds; Negative for rales, rhonchi or wheezes Cardio regular rate and regular rhythm GI normal to inspection, nondistended, normoactive bowel sounds Extremity no clubbing, cyanosis or edema Skin no rashes or lesions noted Neuro CN's II-XII intact bilaterally, moves all extremities and no focal motor deficits Psych Mood & Affect: flat affect Charges/Coding Visit Charges Inpatient E&M: 69155 Subs Hosp L2
--- NOTE | 2021-10-01 06:21 | PN.HOSP_ITS ---
Subjective Subjective Patient with significant improvement overnight with transition off of air Vo to his nasal cannula supplementation with 8 L. This morning patient transitioned out of bed to the bedside chair, eating breakfast, more interactive and less ill-appearing. Patient more conversive. Patient denies fevers, chills, nausea, emesis, abdominal pain, chest pain or dyspnea. Objective Data Objective Data Vital Signs: Vital Signs Temp Pulse Resp BP Pulse Ox 98.2 F 67 20 H 120/68 94 10/01/21 04:00 10/01/21 04:00 10/01/21 04:00 10/01/21 04:00 10/01/21 05:08 Oxygen Flow Rate (L/min) [ 3 AMBULATING with Oxygen #3] Oxygen Flow Rate (L/min) [ 5 AMBULATING with Oxygen #2] Oxygen Flow Rate (L/min) [ 4 AMBULATING with Oxygen #1] Oxygen Flow Rate (L/min) [At 3 REST with Oxygen] Oxygen Flow Rate (L/min) 8 Oxygen Delivery Method Nasal Cannula Weight: 194 lb 14.218 oz Body Mass Index (BMI) 34.3 Intake & Output: Intake and Output for Last 24 Hours 09/29/21 09/30/21 10/01/21 23:59 23:59 23:59 Intake Total 150 / 150 150 / 350 200 / 200 Output Total 1040 / 1040 750 / 1050 500 / 500 Balance -890 / -890 -600 / -700 -300 / -300 Lab / Micro Data Result Diagrams: 10/01/21 04:00 10/01/21 04:00 Labs: Laboratory Results - last 24 hr 10/01/21 04:00: WBC 15.5 H, RBC 5.57 H, Hgb 15.3 H, Hct 45.0, MCV 80.8 L, MCH 27.5, MCHC 34.0, RDW Std Deviation 36.0, RDW Coeff of Te 12.3, Plt Count 327, MPV 11.9, Immature Gran % (Auto) 4.900 H, Neut % (Auto) 76.7 H, Lymph % (Auto) 13.3 L, [place] % (Auto) 4.6, Eos % (Auto) 0.2, Baso % (Auto) 0.3, Absolute Neuts (auto) 11.9 H, Absolute Lymphs (auto) 2.06, Nucleated RBC % 0 12/02/21 04:00: Sodium 134 L, Potassium 3.9, Chloride 101, Carbon Dioxide 28.0, Anion Gap 5, BUN 50 H, Creatinine 0.98, Estim Creat Clear Calc 38.88, Est GFR (MDRD) Af Amer 70, Est GFR (MDRD) Non-Af 58 L, BUN/Creatinine Ratio 51.1 H, Glucose 97, Calcium 8.3 L, Total Bilirubin 0.50, AST 31, ALT 43, Alkaline Phosphatase 51, Total Protein 6.5, Albumin 2.4 L, Globulin 4.1, Albumin/Globulin Ratio 0.6 L Micro: Microbiology 09/22/21 05:20 Blood Culture (Wb) - Anticubital Left Blood Culture - Final No growth in 5 days. 09/21/21 16:32 Blood Culture (Wb) - Anticubital Left Blood Culture - Final No growth in 5 days. 09/24/21 10:00 Stool C. difficile DNA Amplification - Final 09/21/21 16:57 Urine, Clean Catch Urine Culture - Final Presumptive E. coli 09/21/21 15:10 Nasal Secretion SARS-CoV-2 Antigen (Rapid) - Final SARS-CoV-2 (COVID 19) Physical Exam Narrative Physical Examination: General: Awake, alert, oriented x 3 including self, place and some recent events, remains cooperative, seated upright in the bedside ICU chair, no acute distress, improved since prior presentation. Skin: Normal color, normal turgor, no icterus, no cyanosis except occasional staged ecchymoses. HEENT: AT/NC, EOMI, PERRLA, improved MMM, nasal cannula in place. Lungs: Diminished diffusely, greater bases, mildly lessened respiratory rate, less and accessory muscle usage, transition down to nasal cannula, no rales, rhonchi or wheezing. Heart: Regular rate and rhythm; no gallop, rub audible. Abdomen: Soft, obese, NTTP, ND, distant normal BS. Extremities: No cyanosis, no clubbing, mild bilateral lower extremity edema. Neurological: Patient awake, alert, oriented as noted, cognitive function mildly decreased from intact; pupils equally reactive to light and accommodation, cranial nerves II-XII grossly normal, moving all 4 extremities, no focal deficits, strength improving, moderately to severely globally decreased. Psychiatric: Affect appears improved, more interactive, no acute evidence of depressive or anxiety feelings. Assessment & Plan Assessment/Plan (1) Pneumonia due to 2019-nCoV: (2) Urinary tract infection: QUALIFIERS: Hematuria presence: without hematuria Urinary tract infection type: acute cystitis Qualified Code(s): N30.00 - Acute cystitis without hematuria PLAN: The patient is an 81 y/o F w/ PMHx: HTN, HLD, Diabetes mellitus type II, Anxiety and Depression who presents to the [facility] ED on 09/21/21 with reported significant decline with frequent falls and notable encephalopathy unable to provide appropriate history upon initial presentation with pulse oximeter noted to be 83% on room air with eventual diagnosis of COVID as well as UTI. #1. Acute Hypoxia Respiratory Failure secondary to Acute Bilateral Pneumonia secondary to Acute Viral Syndrome, COVID-19 with unvaccinated status: Admitted to medical surgical floor, infectious disease consulted and agreed with continue Rocephin for possible UTI, given symptoms and presentation ID suspected that she was over 10 days of onset of Covid symptoms secondary to resolution of most of her acute symptoms and low level oxygen requirements upon initial presentation with planned and quarantine date 10/02/2021 per infectious disease recommendation, initial Covid evaluation with elevated D-dimer with CTPA with no central or segmental pulmonary embolism with multifocal infiltrates consistent with Covid pneumonia, patient maintained on Decadron therapy, not candidate for remdesivir given timeline per ID. 09/26/2021 did initiate early discussions for discharge planning with family and recommended consideration for long-term facility as patient had been mildly reticent. Family at that point had requested potential transfer to [facility] given they have family who work there however over time as she progressively worsened they discontinued transfer request. 09/27/21 patient with worsened status with continued increased oxygen requirements with transition to air Vo with pulmonary medicine consultation. 09/28/21 AM patient transition to the ICU with attempts to toggle between airvo and BiPAP. Patient CODE STATUS again confirmed full code. Patient initiated on baricitinib with infectious disease following. 10/01/2021 patient significantly improved with transition from air Vo to nasal cannula. Family updated on this improvement and plan transition to a PCU status. #2. Acute E. Coli Urinary Tract Infection: UA upon ED evaluation remarkable, UCX with presumptive E. coli with near morel sensitivity, patient treated with IV Rocephin with transition to cefdinir given sensitivities with stop date last dose 09/29/2021 evening. #3. Acute encephalopathy, multifactorial, secondary to acute UTI and acute Covid pneumonia with hypoxia as noted: CT brain with no acute intracranial hemorrhage or mass-effect, central parenchymal volume loss with white matter changes that are nonspecific likely associate with chronic small vessel ischemic change, small right frontal cavernous angioma incidentally noted, continue treatment of #1, #2, maintain on fall precautions, PT and OT consultations as well as case management for discharge planning. #4. Acute renal insufficiency: Secondary to acute presentation #1, #2. Admission BUN/Cr 38/1.41, prior baseline creatinine noted to be primarily 0.9- 1.1, judiciously hydrated, avoid aggressive hydration given #1, 10/01/21 BUN/creatinine 50/0.98. #5. Incidental small right frontal cavernous angioma: Grossly appears stable, noted on follow-up CT of the head, continue outpatient follow-up. #6. Hypertension: Continue home regimen including lisinopril with hold parameters as needed, PRN hydralazine. #7. Anxiety and depression: We will continue patient home citalopram regimen. #8. Obesity: Weight loss and lifestyle changes encouraged. #9. DVT prophylaxis: SCDs, Lovenox. #10. CODE STATUS: 09/28/2021 confirmed Full Code status with family as noted above. Charges/Coding Visit Charges Inpatient E&M: 58873 Subs Hosp L2
[2021-10-01] MEDS: 0.9% Saline Lock 10 ML Syringe IV (08:45)
[2021-10-01] MEDS: dexAMETHasone 4 MG Tablet 6 MG PO (08:45)
[2021-10-01] MEDS: Aspirin 81 MG TAB.CHEW PO (08:46)
[2021-10-01] MEDS: Lisinopril 5 MG Tablet PO (08:46)
[2021-10-01] MEDS: Multivitamins,Therapeutic Tablet 1 TABLET PO (08:46)
[2021-10-01] MEDS: Enoxaparin 30 MG/0.3 ML Syringe SC ×2 (08:47→20:43)
[2021-10-01] MEDS: Citalopram 20 MG Tablet PO (08:47)
--- NOTE | 2021-10-01 12:13 | CASEMGMT ---
Social Work Per ID notes, pt out of isolation 10/02. Pt improving with oxygen needs today. Call to [facility] and they requested referral sent. Referral information faxed, will await determination of acceptance. TAHIR Gabriel
--- NOTE | 2021-10-01 13:26 | CASEMGMT ---
MARY COSTA NOTE: TC to Kelsea @ [facility]. She is aware plans are now for pt to go to [facility] @ d/c. Prabha LACY RN, CM
--- NOTE | 2021-10-01 15:43 | CASEMGMT ---
Social Work SW placed call to Margie at [facility] to inquire if they can accept pt. Margie states they do not have beds available therefore cannot accept. BALA had inquired about bed availability when initial call placed at [phone] and was instructed to fax referral for review. Phone call to Renetta at [facility] and they do have beds available. Referral faxed. BALA will await determination of acceptance. TAHIR Reyes
[2021-10-02] VITALS (13 sets, daily range): BP systolic 97–136; BP diastolic 57–98; PULSE 61–97; RESP 16–22; TEMP 36.2–36.8; O2SAT 92–96
[2021-10-02] MEDS: 0.9% Saline Lock 10 ML Syringe IV (04:43)
[2021-10-02 05:02] LABS: Hematocrit 42.7 % (37-47); Hemoglobin 14.7 g/dL (12.0-15.0); Mean Corp Hgb Conc 34.4 g/dL (32-36); Mean Corpuscular Hgb 28.1 pg (27.0-32.0); Mean Corpuscular Volume 81.5 fL (81-99); Mean Platelet Vol. 11.8 fl (6.2-12.0); POSITIVE COUNT YES; POSITIVE MORPHOLOGY YES; Platelet Count 280 K/mm3 (150-450); RBC Distribution Width CV 12.6 % (11.6-14.6); RBC Distribution Width SD 37.6 fl (35.1-43.9); Red Blood Count 5.24 M/mm3 (4.2-5.4); White Blood Count 15.9 K/mm3 (4.4-11.0)
[2021-10-02 05:20] LABS: Differential Indicated MANUAL DIFF
[2021-10-02 05:21] LABS: Scan Smear per Review Criteria MANUAL DIFF
[2021-10-02 05:24] LABS: Absolute Lymphocyte Count 1.59 X10^3/uL (0.83-4.51); Absolute Neutrophil Count 12.7 X10^3/uL (2.0-7.7)
[2021-10-02 05:25] LABS: Platelet Estimate ADEQUATE (ADEQ)
[2021-10-02 05:28] LABS: Red Cell Morphology NORM C+C NORMAL (NORM C&C)
[2021-10-02 05:50] LABS: ALB/GLOB Ratio 0.6 RATIO (0.9-2.4); AST(SGOT) 31 U/L (15-37); Alanine Aminotransfer ALT/SGPT 52 U/L (13-56); Albumin, Serum 2.4 g/dL (3.2-5.0); Alkaline Phosphatase 48 U/L (45-117); Anion Gap 6 (5-15); BUN 46 mg/dL (7-18); Calcium,Total 8.2 mg/dL (8.5-10.1); Chloride 102 mmol/L (98-107); EST Glomerular Filtration Rate 57 mL/min (>60); Est Glom Filt Rate - Afr Amer 68 mL/min (>60); Globulin 3.9 g/dL (2.2-4.2); Glucose 90 mg/dL (74-106); Potassium 4.2 mmol/L (3.5-5.1); Protein, Total 6.3 g/dL (6.4-8.2); Sodium Level 134 mmol/L (136-145)
--- NOTE | 2021-10-02 06:25 | PN.CC_ITS ---
Assessment & Plan Assessment/Plan (1) Pneumonia due to 2019-nCoV: (2) Declining functional status: (3) Hypertension: PLAN: RECOMMENDATIONS: 1. Continue to wean supplemental oxygen to maintain saturations at or above 90%. 2. Continue Lovenox twice daily as ordered. 3. Continue Decadron and baricitinib to complete treatment courses. 4. Encourage incentive spirometer use and mobilize patient as tolerated. 5. Diuretics as tolerated by hemodynamics and renal function. 6. Will sign off from a critical care perspective. Please call with any additional questions. IMPRESSIONS: 1. Acute hypoxic respiratory failure secondary to COVID-19 pneumonia The patient was initially admitted to the hospital on September 21 and experience worsening decline in her respiratory status, ultimately requiring transfer to the intensive care unit. While the patient was initially maintained on Pap therapy, she has been weaned to nasal cannula supplemental oxygen. Plan to continue the aforementioned and wean supplemental oxygen for saturations greater than 90%. The patient will be continued on Decadron and baricitinib to complete treatment courses. Continue pharmacologic prophylaxis with Lovenox twice daily as ordered. Encourage incentive spirometer use and mobilize patient as tolerated. Diuretics can be utilized, as tolerated by hemodynamics and renal function, to maintain euvolemic state. 2. Acute encephalopathy Resolved. Like related to acute infectious etiologies. CT head was largely unremarkable. The patient appears to be neurologically intact. Continue supportive measures as noted above. 3. Hypertension/anxiety/depression/obesity/unclear vaccinated status Complicates care, management and prognosis. Okay to continue with baseline medications from my perspective. This note was generated with Smart Voicemail dictation software. It may contain incorrect words, spelling, and punctuation that were not noted in checking the note before signing. Subjective Subjective The patient was seen and examined at the bedside this morning. Events from the last 24 hours have been reviewed. The patient is currently afebrile, hemodynamically stable and maintaining appropriate oxygen saturations on 6 L/min via nasal cannula. No overnight issues were identified by the nursing staff. The patient remains on twice daily Lovenox, Decadron and baricitinib. Objective Data Objective Data The patient's most recent lab work, culture data and imaging studies have all been personally reviewed. Rapid coronavirus antigen testing was positive on September 21. Vital Signs: Vital Signs Temp Pulse Resp BP Pulse Ox 97.2 F L 70 18 104/62 94 10/02/21 04:45 10/02/21 04:45 10/02/21 04:45 10/02/21 04:45 10/02/21 04:45 Oxygen Flow Rate (L/min) [ 3 AMBULATING with Oxygen #3] Oxygen Flow Rate (L/min) [ 5 AMBULATING with Oxygen #2] Oxygen Flow Rate (L/min) [ 4 AMBULATING with Oxygen #1] Oxygen Flow Rate (L/min) [At 3 REST with Oxygen] Oxygen Flow Rate (L/min) 6 Oxygen Delivery Method Nasal Cannula Weight: 89.7 kg Body Mass Index (BMI) 34.3 Intake & Output: Intake and Output for Last 24 Hours 09/30/21 10/01/21 10/02/21 23:59 23:59 23:59 Intake Total 150 / 350 790 / 790 60 / 60 Output Total 750 / 1050 950 / 950 Balance -600 / -700 -160 / -160 60 / 60 Lab / Micro Data Attestation: I reviewed the patient's lab results. Result Diagrams: 10/02/21 04:45 10/02/21 04:45 Labs: Laboratory Results - last 24 hr 10/02/21 04:45: WBC 15.9 H, RBC 5.24, Hgb 14.7, Hct 42.7, MCV 81.5, MCH 28.1, MCHC 34.4, RDW Std Deviation 37.6, RDW Coeff of Te 12.6, Plt Count 280, MPV 11.8, Immature Gran % (Auto) HASHER OPERATOR, Neut % (Auto) HASHER OPERATOR, Lymph % (Auto) HASHER OPERATOR, Carlton % (Auto) HASHER OPERATOR, Eos % (Auto) HASHER OPERATOR, Baso % (Auto) HASHER OPERATOR, Absolute Neuts (auto) 12.7 H, Absolute Lymphs (auto) 1.59, Nucleated RBC % HASHER OPERATOR, Diff Path Review May , Platelet Estimate ADEQUATE, RBC Morphology NORM C+C 10/02/21 04:45: Sodium 134 L, Potassium 4.2, Chloride 102, Carbon Dioxide 26.0, Anion Gap 6, BUN 46 H, Creatinine 1.00, Estim Creat Clear Calc 38.10, Est GFR (MDRD) Af Amer 68, Est GFR (MDRD) Non-Af 57 L, BUN/Creatinine Ratio 46.0 H, Glucose 90, Calcium 8.2 L, Total Bilirubin 0.40, AST 31, ALT 52, Alkaline Phosphatase 48, Total Protein 6.3 L, Albumin 2.4 L, Globulin 3.9, Albumin/Globulin Ratio 0.6 L Micro: Microbiology 09/22/21 05:20 Blood Culture (Wb) - Anticubital Left Blood Culture - Final No growth in 5 days. 09/21/21 16:32 Blood Culture (Wb) - Anticubital Left Blood Culture - Final No growth in 5 days. 09/24/21 10:00 Stool C. difficile DNA Amplification - Final 09/21/21 16:57 Urine, Clean Catch Urine Culture - Final Presumptive E. coli 09/21/21 15:10 Nasal Secretion SARS-CoV-2 Antigen (Rapid) - Final SARS-CoV-2 (COVID 19) Physical Exam Const alert and no apparent distress General Appearance: cooperative Nutritional Appearance: obese HEENT normocephalic and head/scalp atraumatic Eyes PERRL, EOMs intact bilaterally and conjunctivae normal Neck supple General: trachea midline Chest inspection of chest normal Resp Auscultation: diminished lung sounds; Negative for rales, rhonchi or wheezes Cardio regular rate and regular rhythm GI normal to inspection, nondistended, normoactive bowel sounds Extremity no clubbing, cyanosis or edema Skin no rashes or lesions noted Neuro CN's II-XII intact bilaterally, moves all extremities and no focal motor deficits Psych cooperative and affect normal Charges/Coding Visit Charges Inpatient E&M: 55859 Subs Hosp L2
--- NOTE | 2021-10-02 06:36 | PCM.PN.HOSP ---
Subjective Subjective Patient overnight with improvement in oxygenation, transitioned down to 6L, although in the AM with transition to bathing did require transient increase. Patient fatigued and requiring 2 person assist. Patient is more alert and can carry on discussions. Discussion with CM as well as patient daughter with process initiated for SNF for discharge. Patient denies fevers, chills, nausea, emesis, abdominal pain, chest pain. Objective Data Objective Data Vital Signs: Vital Signs Temp Pulse Resp BP Pulse Ox 97.2 F L 70 18 104/62 94 10/02/21 04:45 10/02/21 04:45 10/02/21 04:45 10/02/21 04:45 10/02/21 04:45 Oxygen Flow Rate (L/min) [ 3 AMBULATING with Oxygen #3] Oxygen Flow Rate (L/min) [ 5 AMBULATING with Oxygen #2] Oxygen Flow Rate (L/min) [ 4 AMBULATING with Oxygen #1] Oxygen Flow Rate (L/min) [At 3 REST with Oxygen] Oxygen Flow Rate (L/min) 6 Oxygen Delivery Method Nasal Cannula Weight: 197 lb 12.074 oz Body Mass Index (BMI) 34.3 Intake & Output: Intake and Output for Last 24 Hours 09/30/21 10/01/21 10/02/21 23:59 23:59 23:59 Intake Total 150 / 350 790 / 790 60 / 60 Output Total 750 / 1050 950 / 950 Balance -600 / -700 -160 / -160 60 / 60 Lab / Micro Data Result Diagrams: 10/02/21 04:45 10/02/21 04:45 Labs: Laboratory Results - last 24 hr 10/02/21 04:45: WBC 15.9 H, RBC 5.24, Hgb 14.7, Hct 42.7, MCV 81.5, MCH 28.1, MCHC 34.4, RDW Std Deviation 37.6, RDW Coeff of Te 12.6, Plt Count 280, MPV 11.8, Immature Gran % (Auto) JOINTER OPERATOR, Neut % (Auto) JOINTER OPERATOR, Lymph % (Auto) JOINTER OPERATOR, [place] % (Auto) JOINTER OPERATOR, Eos % (Auto) JOINTER OPERATOR, Baso % (Auto) JOINTER OPERATOR, Absolute Neuts (auto) 12.7 H, Absolute Lymphs (auto) 1.59, Nucleated RBC % JOINTER OPERATOR, Diff Path Review May foll, Platelet Estimate ADEQUATE, RBC Morphology NORM C+C 10/02/21 04:45: Sodium 134 L, Potassium 4.2, Chloride 102, Carbon Dioxide 26.0, Anion Gap 6, BUN 46 H, Creatinine 1.00, Estim Creat Clear Calc 38.10, Est GFR (MDRD) Af Amer 68, Est GFR (MDRD) Non-Af 57 L, BUN/Creatinine Ratio 46.0 H, Glucose 90, Calcium 8.2 L, Total Bilirubin 0.40, AST 31, ALT 52, Alkaline Phosphatase 48, Total Protein 6.3 L, Albumin 2.4 L, Globulin 3.9, Albumin/Globulin Ratio 0.6 L Micro: Microbiology 09/22/21 05:20 Blood Culture (Wb) - Anticubital Left Blood Culture - Final No growth in 5 days. 09/21/21 16:32 Blood Culture (Wb) - Anticubital Left Blood Culture - Final No growth in 5 days. 09/24/21 10:00 Stool C. difficile DNA Amplification - Final 09/21/21 16:57 Urine, Clean Catch Urine Culture - Final Presumptive E. coli 09/21/21 15:10 Nasal Secretion SARS-CoV-2 Antigen (Rapid) - Final SARS-CoV-2 (COVID 19) Physical Exam Narrative Physical Examination: General: Awake, alert, oriented x 3 including self, place and some recent events, remains cooperative, initially washing up, urinating and bedside commode, transition to chair following but took at least 2 people to help her transition. Skin: Normal color, normal turgor, no icterus, no cyanosis except occasional staged ecchymoses. HEENT: AT/NC, EOMI, PERRLA, improved MMM, nasal cannula in place. Lungs: Diminished diffusely, greater bases, improved respiratory status with decreased respiratory rate and lessened accessory usage, transition down to nasal cannula, no rales, rhonchi or wheezing. Heart: Regular rate and rhythm; no gallop, rub audible. Abdomen: Soft, obese, NTTP, ND, distant normal BS. Extremities: No cyanosis, no clubbing, mild bilateral lower extremity edema. Neurological: Patient awake, alert, oriented as noted, cognitive function mildly decreased from intact; pupils equally reactive to light and accommodation, cranial nerves II-XII grossly normal, moving all 4 extremities, no focal deficits, strength improving, moderately to severely globally decreased but had been diminished baseline, requiring 2 person assist. Psychiatric: Affect appears improved, no acute evidence of depressive or anxiety feelings. Assessment & Plan Assessment/Plan (1) Pneumonia due to 2019-nCoV: (2) Urinary tract infection: QUALIFIERS: Urinary tract infection type: acute cystitis Hematuria presence: without hematuria Qualified Code(s): N30.00 - Acute cystitis without hematuria PLAN: The patient is an 81 y/o F w/ PMHx: HTN, HLD, Diabetes mellitus type II, Anxiety and Depression who presents to the [facility] ED on 09/21/21 with reported significant decline with frequent falls and notable encephalopathy unable to provide appropriate history upon initial presentation with pulse oximeter noted to be 83% on room air with eventual diagnosis of COVID as well as UTI. #1. Acute Hypoxia Respiratory Failure secondary to Acute Bilateral Pneumonia secondary to Acute Viral Syndrome, COVID-19 with unvaccinated status: Admitted to medical surgical floor, infectious disease consulted and agreed with continue Rocephin for possible UTI, given symptoms and presentation ID suspected that she was over 10 days of onset of Covid symptoms secondary to resolution of most of her acute symptoms and low level oxygen requirements upon initial presentation with planned quarantine through 10/02/2021 per infectious disease recommendation, initial Covid evaluation with elevated D-dimer with CTPA with no central or segmental pulmonary embolism with multifocal infiltrates consistent with Covid pneumonia, patient maintained on Decadron therapy, not candidate for remdesivir given timeline per ID. 09/26/2021 did initiate early discussions for discharge planning with family and recommended consideration for intermediate facility as patient had been mildly reticent. Family at that point had requested potential transfer to [facility] given they have family who work there however over time as she progressively worsened they discontinued transfer request. 09/27/21 patient with worsened status with continued increased oxygen requirements with transition to air Vo with pulmonary medicine consultation. 09/28/21 AM patient transition to the ICU with attempts to toggle between airvo and BiPAP. Patient CODE STATUS again confirmed full code. Patient initiated on baricitinib with infectious disease following. 10/01/2021 patient significantly improved with transition from air Vo to nasal cannula. 10/01/2021 transition to PCU status. 10/02/2021 improved with decreased oxygen requirement down to 6 L with skilled facility placement start initiated per discussions with case management. Patient will complete quarantine 10/02/2021. #2. Acute E. Coli Urinary Tract Infection: UA upon ED evaluation remarkable, UCX with presumptive E. coli with near morel sensitivity, patient treated with IV Rocephin with transition to cefdinir given sensitivities with stop date last dose 09/29/2021 evening. #3. Acute encephalopathy, multifactorial, secondary to acute UTI and acute Covid pneumonia with hypoxia as noted: CT brain with no acute intracranial hemorrhage or mass-effect, central parenchymal volume loss with white matter changes that are nonspecific likely associate with chronic small vessel ischemic change, small right frontal cavernous angioma incidentally noted, continue treatment of #1, #2, maintain on fall precautions, PT and OT consultations as well as case management for discharge planning. #4. Acute renal insufficiency: Secondary to acute presentation #1, #2. Admission BUN/Cr 38/1.41, prior baseline creatinine noted to be primarily 0.9-1.1, judiciously hydrated, avoid aggressive hydration given #1, 10/02/21 BUN/creatinine 46/1.0. #5. Incidental small right frontal cavernous angioma: Grossly appears stable, noted on follow-up CT of the head, continue outpatient follow-up. #6. Hypertension: Continue home regimen including lisinopril with hold parameters as needed, PRN hydralazine. #7. Anxiety and depression: We will continue patient home citalopram regimen. #8. Obesity: Weight loss and lifestyle changes encouraged. #9. DVT prophylaxis: SCDs, Lovenox. #10. CODE STATUS: 09/28/2021 confirmed Full Code status with family as noted above. Charges/Coding Visit Charges Inpatient E&M: 83260 Subs Hosp L2
--- NOTE | 2021-10-02 09:48 | CASEMGMT ---
Social Work SW spoke with [facility] and [facility] are able to accept pt. Oxygen levels will need to be at 6L or less. Precert started at this time. Phone call to pt's dgt Marly Zambrano and updated that [facility] does not have beds available, but [facility] is able to accept pt. Marly is agreeable to discharge to [facility] when appropriate. Physician updated on discharge plan. Plan: [facility], pending precert. Can accept when oxygen is 6L or below TAHIR Gabriel
[2021-10-02] MEDS: dexAMETHasone 4 MG Tablet 6 MG PO (09:51)
[2021-10-02] MEDS: Enoxaparin 30 MG/0.3 ML Syringe SC ×2 (09:52→21:36)
[2021-10-02] MEDS: Citalopram 20 MG Tablet PO (09:52)
[2021-10-02] MEDS: Aspirin 81 MG TAB.CHEW PO (09:52)
[2021-10-02] MEDS: Multivitamins,Therapeutic Tablet 1 TABLET PO (09:52)
--- NOTE | 2021-10-02 11:49 | NURSING ---
report called to [facility] and message left with family on transfer to [facility].
[2021-10-02 17:15] LABS: Bedside Glucose 153 mg/dL (70-110)
[2021-10-03] VITALS (11 sets, daily range): BP systolic 107–126; BP diastolic 43–70; PULSE 62–81; RESP 16–18; TEMP 36.3–37; O2SAT 86–98
[2021-10-03 07:21] LABS: Absolute Lymphocyte Count 1.76 X10^3/uL (0.83-4.51); Basophil# 0.02 X10^3/uL; Basophil% 0.1 % (0-1); Eosinophil# 0.01 X10^3/uL; Eosinophils% 0.1 % (0-5); Hematocrit 42.9 % (37-47); Hemoglobin 14.7 g/dL (12.0-15.0); Lymphocyte # 1.76 X10^3/ul (0.83-4.51); Lymphocyte % 11.6 % (19-41); Mean Corp Hgb Conc 34.3 g/dL (32-36); Mean Corpuscular Hgb 27.9 pg (27.0-32.0); Mean Corpuscular Volume 81.6 fL (81-99); Mean Platelet Vol. 12.2 fl (6.2-12.0); Monocyte# 0.77 X10^3/uL; Monocyte% 5.1 % (0-10); NRBC Flagged by Analyzer 0 % (0-5); Neutrophil # 12.01 X10^3/uL (2.7-7.7); Neutrophil % 79.5 % (47-70); Platelet Count 252 K/mm3 (150-450); RBC Distribution Width CV 12.6 % (11.6-14.6); RBC Distribution Width SD 37.5 fl (35.1-43.9); Red Blood Count 5.26 M/mm3 (4.2-5.4); White Blood Count 15.1 K/mm3 (4.4-11.0)
[2021-10-03 07:47] LABS: ALB/GLOB Ratio 0.6 RATIO (0.9-2.4); AST(SGOT) 33 U/L (15-37); Alanine Aminotransfer ALT/SGPT 49 U/L (13-56); Albumin, Serum 2.4 g/dL (3.2-5.0); Alkaline Phosphatase 53 U/L (45-117); Anion Gap 6 (5-15); BUN 37 mg/dL (7-18); BUN/Creat Ratio 36.6 RATIO (10-20); Calcium,Total 8.7 mg/dL (8.5-10.1); Chloride 103 mmol/L (98-107); Creatinine, Serum 1.01 mg/dL (0.55-1.02); EST Glomerular Filtration Rate 56 mL/min (>60); Est Glom Filt Rate - Afr Amer 68 mL/min (>60); Estimated Creatinine Clearance 37.72 ml/min; Globulin 4.1 g/dL (2.2-4.2); Glucose 73 mg/dL (74-106); Potassium 5.1 mmol/L (3.5-5.1); Protein, Total 6.5 g/dL (6.4-8.2); Sodium Level 134 mmol/L (136-145)
--- NOTE | 2021-10-03 09:06 | NURSING ---
Renetta from the [facility] called to inform us the have obtained precert for patient to come today.
[2021-10-03] MEDS: Enoxaparin 30 MG/0.3 ML Syringe SC (10:11)
[2021-10-03] MEDS: Lisinopril 5 MG Tablet PO (10:12)
[2021-10-03] MEDS: Aspirin 81 MG TAB.CHEW PO (10:12)
[2021-10-03] MEDS: Acetaminophen 325 MG Tablet 650 MG PO (10:12)
[2021-10-03] MEDS: Multivitamins,Therapeutic Tablet 1 TABLET PO (10:12)
[2021-10-03] MEDS: Citalopram 20 MG Tablet PO (10:12)
--- NOTE | 2021-10-03 10:56 | NURSING ---
pt taken out of precautions at this time per ID orders. Family updated and will be in later today
--- NOTE | 2021-10-03 16:36 | PCM.TXEXTCAR ---
Diet 09/30/21 08:45 Diet: Regular - General Type of Dietary Supplement:: Glucerna Shake Is pt able to select menu?: Yes Diet Comments: chocolate Glucerna w/ meals Routine Orders/Code Status O2 Liters per Minute: 2 O2 Frequency: Continuous Keep PO Greater than or Equal to (%): 90 Code Status: Full Code Therapies Weight Bearing: Full weight bearing Physical Therapy: Eval and Treat Occupational Therapy: Eval and Treat Problem/Diagnosis (1) Pneumonia due to 2019-nCoV: Status: Acute (2) Urinary tract infection: Status: Acute Allergies/Procedures Done in Hospital Allergies codeine Adverse Reaction (Verified 09/21/21 14:24) Other Type of Care/Length of Stay Estimated LOS: Convalescent Care Less Than 30 days Type of Care Needed: Skilled Rehab Potential: Fair Prognosis: Fair Additional Orders/Day of Discharge Day of Discharge: 10/03/21 Dietary and Speech Recommendations Dietitian Recommendations/Changes: continue regular diet d/t reported poor PO intake; will switch ONS to Glucerna TID w/ meals. Will monitor PO intake and adjust diet/ONS as indicated. Discharge Plan Admission Admit Date/Time: 09/21/21 19:46 Primary Reason for Your Visit: Acute Hypoxia, Acute BL PNA, COVID-19, E. Coli UTI, Encephalopathy Attending Provider: Wilian Linares Primary Care Provider: Jammie Coleman Consulting Providers: Gene Mao ; Sixto Lynne ; Teofilo Chung ; Tita Wilson SUPERVISORY CIVIL ENGINEER Discharge Orders/Prescriptions Prescriptions: No Action multivitamin Tablet 1 tablet PO DAILY RF: 0 (DME) Wrist Brace Misc See Rx Instructions .ROUTE .MEDSUPPLY Qty: 2 RF: 2 aspirin 81 MG tablet,chewable 81 mg PO DAILY@0800 RF: 0 citalopram 20 mg tablet 20 mg PO DAILY Qty: 90 RF: 3 lisinopril 5 mg tablet 5 mg PO DAILY Qty: 90 RF: 3 Referrals / Follow Up: Jammie Coleman MD [Primary Care Provider] - (Follow-up within 2-5 days hospital discharge and if transitions to SNF afterwards within 1-2 days of SNF discharge.) Disposition Disposition (needs filled in before D/C Order can be placed): Detention Facility
--- NOTE | 2021-10-03 16:40 | PCM.DC.SUM ---
Providers Date of Admission: 09/21/21 Primary Care Physician: Dr. Jammie Coleman MD Consultations 09/21/21 21:25 Consult: Infectious Disease Routine Consulting Provider: Gene Mao Reason for Consult: Covid EMERGENT Consult: No Notified: Yes Date Notified: 09/22/21 Time Notified: 03:27 Method of Notification: Answering Service 09/27/21 06:01 Consult: Crime Scene Investigator / Pulmonary Medicine Routine Consulting Provider: Pulmonary Medicine stuart [place] Reason for Consult: COVID PNA, worsening hypoxia, full code EMERGENT Consult: No Notified: Yes Date Notified: 09/27/21 Time Notified: 06:01 Method of Notification: cortext Reason For Visit: COVID-19 Diagnosis Discharge Diagnosis (1) Pneumonia due to 2019-nCoV: Status: Acute Code(s): U07.1 - COVID-19; J12.82 - Pneumonia due to coronavirus disease 2018 (2) Urinary tract infection: Status: Acute Code(s): N39.0 - Urinary tract infection, site not specified Qualifiers: Urinary tract infection type: acute cystitis Hematuria presence: without hematuria Qualified Code(s): N30.00 - Acute cystitis without hematuria Medications at Discharge Home Medications aspirin 81 mg PO DAILY@0800 09/15/13 citalopram 20 mg tablet 20 mg PO DAILY #90 tablet 10/28/20 lisinopril 5 mg tablet 5 mg PO DAILY #90 tablet 01/27/21 arm brace #2 each 02/20/21 multivitamin 1 tablet PO DAILY 02/20/21 acetaminophen [Tylenol] 650 mg PO Q6H PRN PRN #1 tab 10/03/21 Hospital Course Operations None Procedures None Summary of Care Provided Minutes Spent on Discharge: 35 Hospital Course: Is an 81-year-old female presents with acute hypoxic respiratory failure secondary to COVID-19 pneumonia. Patient was treated with the Covid with dexamethasone as well as started on baricitinib. Patient without the window for remdesivir. Patient did worsen while she was here.. Patient completed her quarantine on October 02. During the hospitalization, is felt the patient would require longterm facility. Patient did require air Vo at 1 point. Patient was placed in the ICU as she was oscillating between air Vo and BiPAP. Events patient was transitioned over to nasal cannula and has continued to improve. Patient was treated with an E. coli urinary tract infection which she had completed treatment while she was here. She did have encephalopathy likely due to the UTI as well as Covid pneumonia that is subsequently resolved. Patient still very debilitated will be [facility] in [facility] condition. Physical Exam Const alert and no apparent distress Resp normal respiratory effort, no retractions, no use of accessory muscles and clear to auscultation bilaterally Neuro Sensorium / Orientation: awake and alert Weight / BMI Weight Weight: 89.7 kg Body Mass Index (BMI) 34.3 ABG / Lab / Microbiology Data Result Diagrams: 10/03/21 06:30 10/03/21 06:30 Laboratory: Laboratory Results - last 24 hr 10/02/21 16:36: POC Glucose 153 H 10/03/21 06:30: WBC 15.1 H, RBC 5.26, Hgb 14.7, Hct 42.9, MCV 81.6, MCH 27.9, MCHC 34.3, RDW Std Deviation 37.5, RDW Coeff of Te 12.6, Plt Count 252, MPV 12.2 H, Immature Gran % (Auto) 3.600 H, Neut % (Auto) 79.5 H, Lymph % (Auto) 11.6 L, Rabun % (Auto) 5.1, Eos % (Auto) 0.1, Baso % (Auto) 0.1, Absolute Neuts (auto) 12.0 H, Absolute Lymphs (auto) 1.76, Nucleated RBC % 0 10/03/21 06:30: Sodium 134 L, Potassium 5.1, Chloride 103, Carbon Dioxide 25.0, Anion Gap 6, BUN 37 H, Creatinine 1.01, Estim Creat Clear Calc 37.72, Est GFR (MDRD) Af Amer 68, Est GFR (MDRD) Non-Af 56 L, BUN/Creatinine Ratio 36.6 H, Glucose 73 L, Calcium 8.7, Total Bilirubin 0.50, AST 33, ALT 49, Alkaline Phosphatase 53, Total Protein 6.5, Albumin 2.4 L, Globulin 4.1, Albumin/Globulin Ratio 0.6 L Microbiology: Microbiology 09/22/21 05:20 Blood Culture (Wb) - Anticubital Left Blood Culture - Final No growth in 5 days. 09/21/21 16:32 Blood Culture (Wb) - Anticubital Left Blood Culture - Final No growth in 5 days. 09/24/21 10:00 Stool C. difficile DNA Amplification - Final 09/21/21 16:57 Urine, Clean Catch Urine Culture - Final Presumptive E. coli 09/21/21 15:10 Nasal Secretion SARS-CoV-2 Antigen (Rapid) - Final SARS-CoV-2 (COVID 19) Meaningful Use Info Meaningful Use Diagnoses (Choose all that apply): None applicable Discharge Plan Admission Admit Date/Time: 09/21/21 19:46 Primary Reason for Your Visit: Acute Hypoxia, Acute BL PNA, COVID-19, E. Coli UTI, Encephalopathy Attending Provider: Wilian Linares Primary Care Provider: Jammie Coleman Consulting Providers: Gene Mao ; Sixto Lynne ; Teofilo Chung ; Tita Wilson LICENSED REAL ESTATE BROKER Discharge Orders/Prescriptions Prescriptions: New acetaminophen [Tylenol] 325 mg Tablet 650 mg PO Q6H PRN PRN (Reason: Pain 1-10 Or Fever) Qty: 1 RF: 0 Continued multivitamin Tablet 1 tablet PO DAILY RF: 0 (DME) Wrist Brace Misc See Rx Instructions .ROUTE .MEDSUPPLY Qty: 2 RF: 2 aspirin 81 MG tablet,chewable 81 mg PO DAILY@0800 RF: 0 citalopram 20 mg tablet 20 mg PO DAILY Qty: 90 RF: 3 lisinopril 5 mg tablet 5 mg PO DAILY Qty: 90 RF: 3 Referrals / Follow Up: Jammie Coleman MD [Primary Care Provider] - (Follow-up within 2-5 days hospital discharge and if transitions to SNF afterwards within 1-2 days of SNF discharge.) Disposition Disposition (needs filled in before D/C Order can be placed): Senior Living Facility Charges/Coding Visit Charges Inpatient E&M: 71694 Disch Hosp
--- NOTE | 2021-10-03 17:01 | NURSING ---
report called to [facility], no further questions voiced
[2021-10-05 09:08] LABS: Pathologist Review Reviewed
== END 2021-10-03 17:40 | disposition skilled nursing facility (03) | DRG 177 ==
LOC: ED 19:18 → MS3 19:32 → ICU 09-28 08:07 → PCU 10-02 11:45
PROVIDERS: Family Medicine; Internal Medicine; Internal Medicine Critical Care Medicine; Internal Medicine Infectious Disease; Admitting Provider Family Medicine; Emergency Provider Emergency Medicine; PCP Internal Medicine
DX: U07.1 COVID-19 (principal); J12.82 Pneumonia due to coronavirus disease 2019; J96.01 Acute respiratory failure with hypoxia; G93.49 Other encephalopathy; N30.00 Acute cystitis without hematuria; B96.20 Unspecified Escherichia coli [E. coli] as the cause of diseases classified elsewhere; R11.2 Nausea with vomiting, unspecified; R19.7 Diarrhea, unspecified; Z28.3 Underimmunization status; N28.9 Disorder of kidney and ureter, unspecified; D18.00 Hemangioma unspecified site; E11.9 Type 2 diabetes mellitus without complications; I10 Essential (primary) hypertension; E78.5 Hyperlipidemia, unspecified; R29.6 Repeated falls; F32.A Depression, unspecified; F41.9 Anxiety disorder, unspecified; E66.9 Obesity, unspecified; Z68.35 Body mass index [BMI] 35.0-35.9, adult; Z79.82 Long term (current) use of aspirin; Z79.899 Other long term (current) drug therapy
CPT/HCPCS: 36415; 36569; 70450; 71045; 71275; 80048; 80053; 81001; 82550; 82962; 83605; 83735; 83880; 84145; 84484; 85025; 85379; 85384; 85610; 86140; 87040; 87086; 87088; 87186; 87426; 87493; 93005; 94660; 94667; 94668; 94762; 97110; 97116; 97162; 97166; 97530; 97535; 97802; 99285; J7030; J7040; Q9967; A4216; J1940; J2405; J7799

== ENCOUNTER 2021-12-01 11:40 | Outpatient (CLI) | payer MEDICARE, SELFPAY ==
[2021-12-01 15:31] LABS: Absolute Lymphocyte Count 1.55 X10^3/uL (0.83-4.51); Absolute Neutrophil Count 4.4 X10^3/uL (2.0-7.7); Basophil# 0.04 X10^3/uL; Basophil% 0.6 % (0-1); Eosinophil# 0.23 X10^3/uL; Eosinophils% 3.4 % (0-5); Hemoglobin 12.8 g/dL (12.0-15.0); Lymphocyte # 1.55 X10^3/ul (0.83-4.51); Lymphocyte % 22.7 % (19-41); Mean Corpuscular Hgb 28.3 pg (27.0-32.0); Mean Corpuscular Volume 88.3 fL (81-99); Mean Platelet Vol. 12.9 fl (6.2-12.0); Monocyte# 0.66 X10^3/uL; Monocyte% 9.6 % (0-10); NRBC Flagged by Analyzer 0 % (0-5); Neutrophil # 4.35 X10^3/uL (2.7-7.7); Neutrophil % 63.6 % (47-70); Platelet Count 227 K/mm3 (150-450); RBC Distribution Width CV 14.9 % (11.6-14.6); Red Blood Count 4.53 M/mm3 (4.2-5.4); White Blood Count 6.8 K/mm3 (4.4-11.0)
[2021-12-01 15:49] LABS: Anion Gap 4 (5-15); BUN 13 mg/dL (7-18); BUN/Creat Ratio 13.3 RATIO (10-20); Calcium,Total 9.4 mg/dL (8.5-10.1); Chloride 105 mmol/L (98-107); Creatinine, Serum 0.98 mg/dL (0.55-1.02); EST Glomerular Filtration Rate 58 mL/min (>60); Est Glom Filt Rate - Afr Amer 70 mL/min (>60); Glucose 95 mg/dL (74-106); Potassium 5.2 mmol/L (3.5-5.1); Sodium Level 137 mmol/L (136-145)
== END 2021-12-01 23:59 | disposition short-term general hospital (02) ==
LOC: BIMLAB 11:41
PROVIDERS: PCP Internal Medicine; Referring Provider Internal Medicine; Visit Provider Internal Medicine
DX: I10 Essential (primary) hypertension (principal)
CPT/HCPCS: 36415; 80048; 85025

== ENCOUNTER 2022-08-09 10:00 | Emergency (ER) | payer MEDICARE, SELFPAY ==
[2022-08-09 10:02] VITALS: BP 146/66; PULSE 74; RESP 17; TEMP 36.3; O2SAT 98; BMI 37.7
--- NOTE | 2022-08-09 10:20 | EDS_ITS ---
HPI History of Present Illness Chief Complaint: Headache Informant: patient Onset/Context/Timing Onset: Today Context: Gradual Timing: Continuous Quality -Headache: Positive for Dull Location: Top of head Worsened by: Nothing Relieved by: Nothing Associated Symptoms/Injury Associated Symptoms: Negative for Fever, Nausea, Vomiting, Sore Throat, Sinus Pressure, Numbness, Tingling, Preceding Aura, Visual Changes, Blurred Vision, Photophobia or Visual Loss Injury - JULIAN: Negative for Direct Trauma Narrative Narrative: Patient presents with a headache that began today. Patient states it came on gr adually. Patient states it is over the top of her head. Patient also admits to some dizziness. Patient is unable to describe what her dizziness feels like. Patient also admits to some mild shortness of breath. Patient states that when she feels short of breath she goes outside and gets fresh air and it goes away. Patient denies any cough. Patient denies any chest pain. Patient denies any n ausea or vomiting. Patient denies any visual changes. Patient denies any neck pain. PFSH PFS Medical History Anxiety Back pain Cancer Confusion Diabetes History of encephalopathy Hyperkalemia Hypertension Osteopenia Home Medications aspirin 81 mg chewable tablet 81 mg PO DAILY@0800 heart health 09/15/13 [History Last Taken 05/16/17] arm brace (Wrist Brace) #2 ea 02/20/21 [Rx Last Taken Unknown] multivitamin 1 tablet PO DAILY supplement 02/20/21 [History Last Taken Unknown] acetaminophen 325 mg tablet (Tylenol) 650 mg PO Q6H PRN PRN Pain 1-10 Or Fever #1 TAB 10/03/21 [Rx Last Taken Unknown] citalopram 20 mg tablet 20 mg PO DAILY #90 tabs 11/20/21 [Rx Last Taken Unknown] lisinopril 5 mg tablet 5 mg PO DAILY #90 tabs 03/04/22 [Rx Last Taken Unknown] Allergy/AdvReac Type Severity Reaction Status Date / Time codeine AdvReac Other Verified 08/09/22 10:01 Family History Mother Hypertension Cancer lymphoma Diabetes Sister Colon cancer Brother CVA (cerebral vascular accident) Surgical History no surgical history no surgical history Social History Smoking Status: Never smoker alcohol intake: current alcohol intake frequency: holidays/special occasions only Alcohol type: beer substance use type: does not use what type of physical activity do you participate in: walking frequency: 3-4 times per week ROS ROS ED Constitutional Constitutional ED: Denies chills or fever(s) Eyes Eyes: Denies blurry vision or change in vision ENT ENT ED: Denies rhinorrhea or sore throat Cardiovascular Cardiovascular: Denies chest pain or palpitations Respiratory/Chest Respiratory/Chest: Reports dyspnea; Denies cough Gastrointestinal Gastrointestinal: Denies nausea or vomiting Genitourinary Genitourinary ED: Denies dysuria or hematuria Musculoskeletal Musculoskeletal: Denies back pain or neck pain Integumentary Denies abscess or rash Neurologic Neurologic: Reports headache(s); Denies weakness Allergic/Immunologic Allergic/Immunologic ED: Denies mouth swelling or urticaria EXAM Physical Exam Const Vital Signs: 08/09/22 10:02 Temperature 97.4 F L Temperature Source Temporal Pulse Rate 74 Respiratory Rate 17 Blood Pressure 146/66 H Blood Pressure Mean 92 Pulse Ox 98 Oxygen Delivery Method Room Air Positive well nourished, well developed and obese General Appearance ED: well developed and NAD Nutritional Appearance: obese HEENT Reports moist mucous membranes Neck supple and no JVD Resp normal respiratory effort and clear to auscultation bilaterally Cardio regular rate, regular rhythm and no murmurs GI normal to inspection, nondistended, normoactive bowel sounds and non-tender Palpation: soft Extremity normal to inspection General Extremety ED: Negative for edema or tenderness General Extremity: Negative for edema Neuro oriented x3, CN's II-XII intact bilaterally and no sensory deficits noted Sensorium / Orientation: awake and alert Speech: speech normal Motor Exam: strength 5/5 throughout Psych mental status grossly normal Skin no rashes or lesions noted MDM MDM MDM Narrative Medical decision making narrative: Patient was given IV fluids. Patient was ordered Reglan and Benadryl. Patient declined these because her headache has resolved. EKG was obtained. On my interpretation, it showed a normal sinus rhythm with a rate of 71. MN interval, QRS interval, and QTc intervals were all normal. [place] was normal. There are no acute ST or T wave changes. CBC was within normal limits. Basic metabolic profile showed a slightly elevated creatinine of 1.2 but was otherwise within normal limits. Urinalysis does not show any evidence of urinary tract infection or hematuria. CT scan of the brain was obtained. 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 This was interpreted by the ra diologist and reviewed by myself. PA and lateral chest x-ray was obtained. There are 2 views. On my interpretation, lung tilley are clear. There is normal cardiac silhouette. Bony thorax is normal. There is no acute process noted. Radiologist also interpreted the x-ray and agrees. Patient is feeling better on reevaluation. Patient denies any dizziness or headache at this time. Patient and family were advised of the findings. Patient was instructed to follow-up with her primary care physician in 5 to 7 days. Patient and family understand and are agreeable with the plan. All questions were answered. Lab Data Attestation: I reviewed the patient's lab results. Labs: Laboratory Results - last 24 hr 08/09/22 08/09/22 08/09/22 11:00 11:00 11:51 WBC 5.8 RBC 4.68 Hgb 13.3 Hct 40.7 MCV 87.0 MCH 28.4 MCHC 32.7 RDW Std Deviation 41.1 RDW Coeff of Te 13.1 Plt Count 158 MPV 12.6 H Immature Gran % (Auto) 0.200 Neut % (Auto) 64.5 Lymph % (Auto) 23.3 Patrick % (Auto) 8.7 Eos % (Auto) 2.6 Baso % (Auto) 0.7 Absolute Neuts (auto) 3.7 Absolute Lymphs (auto) 1.34 Nucleated RBC % 0 Sodium 142 Potassium 4.7 Chloride 107 Carbon Dioxide 29.0 Anion Gap 6 BUN 15 Creatinine 1.20 H Estim Creat Clear Calc 28.59 Est GFR (MDRD) Af Amer 55 L Est GFR (MDRD) Non-Af 46 L BUN/Creatinine Ratio 12.5 Glucose 98 Calcium 9.2 Urine Color Straw Urine Clarity Clear Urine pH 7.0 Ur Specific [place] 1.005 Urine Protein Negative Urine Glucose (UA) Normal Urine Ketones Negative Urine Occult Blood Negative Urine Nitrite Negative Urine Bilirubin Negative Urine Urobilinogen Normal Ur Leukocyte Esterase 25 H Urine RBC 0 SEEN Urine WBC 0-5 SEEN Ur Squamous Epith Cells 0-5 SEEN Urine Bacteria 3+ Urine Mucus 0 SEEN Radiography Diagnostic Testing: Clinical Impression(s) from Imaging Studies Brain CT 08/09/22 10:27 IMPRESSION: Findings suggestive of normal pressure hydrocephalus. Stable focal area of increased attenuation in the right frontal lobe in keeping with the patient''s known diagnosis of a cavernous angioma. Electronically Signed: José Antonio Reyna MD at 12:13 EDT , Chest X-Ray 08/09/22 11:24 IMPRESSION: Stable mild increased markings at the lung bases suggestive of basilar scarring Electronically Signed: José Antonio Reyna MD at 12:15 EDT , EKG Initial EKG: Attestation: I personally reviewed and interpreted this EKG as follows: Interpretation: Sinus Rhythm (71) and No Acute Injury Pattern Prior EKG tracings: available for review Prior: Unchanged (09/21/2021) Discharge Plan Triage Chief Complaint: Headache ED Provider: Wilian Duff Dx/Rx/DC Orders Clinical Impression: Headache, Dizziness Instructions: ED Dizziness, Uncertain Cause, ED Headache Unspecified Prescriptions: No Action multivitamin Tablet 1 tablet PO DAILY (DME) Wrist Brace Misc See Rx Instructions .ROUTE .MEDSUPPLY Qty: 2 2RF Rx Instructions: As directed aspirin 81 MG tablet,chewable 81 mg PO DAILY@0800 Label Comments: Blood thinner for heart health acetaminophen [Tylenol] 325 mg Tablet 650 mg PO Q6H PRN PRN (Reason: Pain 1-10 Or Fever) Qty: 1 0RF citalopram 20 mg tablet 20 mg PO DAILY Qty: 90 3RF lisinopril 5 mg tablet 5 mg PO DAILY Qty: 90 3RF Primary Care Provider: Leanna El Referrals: Leanna El MD [Primary Care Provider] - 5-7 Days Disposition Disposition: Home, Self Care
--- NOTE | 2022-08-09 10:27 | CT_ITS ---
STUDY: CT BRAIN WITHOUT CONTRAST REASON FOR EXAM: Female, 82 years old. Headache. Dizziness. Encephalopathy. RADIATION DOSAGE (If Supplied By Facility): CTDIvol = ( 44.99 ) mGy, DLP = ( 796.11 ) mGycm TECHNIQUE: Transaxial CT imaging of the brain was performed without administration of intravenous contrast material. Individualized dose optimization techniques were used for this CT. COMPARISON: Comparison is made with prior examination dated 09/23/2021. FINDINGS: Normal soft tissue structures. Normal calvarium. There is disproportionate enlargement of the lateral and third ventricles, as compared to the extra-axial spaces. The findings suggest normal pressure hydrocephalus (NPH). Once again, there is a focal area of increased attenuation in the right frontal lobe. This corresponds to the MRI findings of a cavernous angioma at that site. Normal basal ganglia and thalami. Normal brainstem. Normal cerebellum. There is no intracranial hemorrhage. There are no findings of an acute ischemic infarction. Normal visualized paranasal sinuses. CT/Brain/Head without Contrast IMPRESSION: Findings suggestive of normal pressure hydrocephalus. Stable focal area of increased attenuation in the right frontal lobe in keeping with the patient''s known diagnosis of a cavernous angioma. Electronically Signed: José Antonio Reyna MD at 12:13 EDT ,
--- NOTE | 2022-08-09 10:28 | EKG12_ITS ---
Test Reason : DYSRHYTHMIA Blood Pressure : / mmHG Vent. Rate : 071 BPM Atrial Rate : 071 BPM P-R Int : 174 ms QRS Dur : 082 ms QT Int : 386 ms P-R-T Axes : 018 048 022 degrees QTc Int : 419 ms Normal sinus rhythm Normal ECG Confirmed by CONSTANZA PEREA, NELSON ([id number]), editorial writer MIKAEL STUART ([id number]) on 08/10/2022 9:14:17 AM Referred By: ESTELITA Confirmed By:NELSON APODACA MD
[2022-08-09] MEDS: 0.9% Normal Saline 1,000 ML 999 ML IV (11:09)
[2022-08-09 11:15] LABS: Absolute Lymphocyte Count 1.34 X10^3/uL (0.83-4.51); Absolute Neutrophil Count 3.7 X10^3/uL (2.0-7.7); Basophil# 0.04 X10^3/uL; Basophil% 0.7 % (0-1); Eosinophil# 0.15 X10^3/uL; Eosinophils% 2.6 % (0-5); Hematocrit 40.7 % (37-47); Hemoglobin 13.3 g/dL (12.0-15.0); Lymphocyte # 1.34 X10^3/ul (0.83-4.51); Lymphocyte % 23.3 % (19-41); Mean Corp Hgb Conc 32.7 g/dL (32-36); Mean Corpuscular Hgb 28.4 pg (27.0-32.0); Mean Platelet Vol. 12.6 fl (6.2-12.0); Monocyte% 8.7 % (0-10); NRBC Flagged by Analyzer 0 % (0-5); Neutrophil # 3.71 X10^3/uL (2.7-7.7); Neutrophil % 64.5 % (47-70); POSITIVE COUNT YES; Platelet Count 158 K/mm3 (150-450); RBC Distribution Width CV 13.1 % (11.6-14.6); RBC Distribution Width SD 41.1 fl (35.1-43.9); Red Blood Count 4.68 M/mm3 (4.2-5.4); White Blood Count 5.8 K/mm3 (4.4-11.0)
[2022-08-09 11:24] LABS: Anion Gap 6 (5-15); BUN 15 mg/dL (7-18); BUN/Creat Ratio 12.5 RATIO (10-20); Calcium,Total 9.2 mg/dL (8.5-10.1); Chloride 107 mmol/L (98-107); EST Glomerular Filtration Rate 46 mL/min (>60); Est Glom Filt Rate - Afr Amer 55 mL/min (>60); Estimated Creatinine Clearance 28.59 ml/min; Glucose 98 mg/dL (74-106); Potassium 4.7 mmol/L (3.5-5.1); Sodium Level 142 mmol/L (136-145)
--- NOTE | 2022-08-09 11:24 | RAD_ITS ---
STUDY: X-RAY CHEST REASON FOR EXAM: Female, 82 years old. Dyspnea TECHNIQUE: PA and lateral views of the chest. COMPARISON: Comparison is made with prior study dated 09/21/2021. FINDINGS: Stable increased interstitial markings at the lung bases slightly more prominent on the right side. This is suggestive of scarring. There is no demonstrated pleural abnormality. There is borderline cardiomegaly. Normal mediastinum and jailene. Normal visualized pulmonary arteries. There is atherosclerotic tortuosity of the aortic arch and descending thoracic aorta. There are diffuse degenerative changes of the visualized thoracic spine. Normal visualized ribs, clavicles, and shoulders. There is no demonstrated abnormality of the visualized soft tissue structures of the upper abdomen. RAD/Chest PA and Lateral IMPRESSION: Stable mild increased markings at the lung bases suggestive of basilar scarring Electronically Signed: José Antonio Reyna MD at 12:15 EDT ,
[2022-08-09 11:44] LABS: Differential Indicated SCAN CRITERIA MET
[2022-08-09 12:09] LABS: Mucous, Urine 0 SEEN /hpf (<or=2+)
[2022-08-09 12:15] LABS: Color, Urine Straw (Yellow); Glucose, Dipstick Normal (Normal); Ketone-Dipstick Negative (Negative); Leukocyte Esterase-Dipstick 25 /ul (Negative); Nitrite-Dipstick Negative (Negative); Occult Blood-Urine Negative /ul (Negative); Protein-Dipstick Negative (Negative); Specific Gravity, Urine 1.005 (1.002-1.030); Urine Bilirubin Dipstick Negative (Negative); Urine Clarity Clear (Clear); Urine Urobilinogen Normal (Normal)
[2022-08-09 12:33] LABS: Bacteria 3+ /hpf (None Seen); Red Blood Cells-Urine 0 SEEN /hpf (0-5); Squamous Epithelial Cells - UA 0-5 SEEN /hpf (5-10); White Blood Cells 0-5 SEEN /hpf (0-5)
[2022-08-09 13:57] VITALS: PULSE 82; RESP 17; O2SAT 97
== END 2022-08-09 14:00 | disposition home or self-care (01) ==
PROVIDERS: Emergency Provider Emergency Medicine; PCP Internal Medicine; Visit Provider Emergency Medicine
DX: R51.9 Headache, unspecified (principal); G91.2 (Idiopathic) normal pressure hydrocephalus; E11.9 Type 2 diabetes mellitus without complications; D18.09 Hemangioma of other sites; R42 Dizziness and giddiness; R06.02 Shortness of breath; I10 Essential (primary) hypertension; F41.9 Anxiety disorder, unspecified; E66.9 Obesity, unspecified; Z79.82 Long term (current) use of aspirin; Z79.899 Other long term (current) drug therapy
CPT/HCPCS: 70450; 71046; 80048; 81001; 85025; 93005; 96361; 96374; 96375; 99282; J7030; A4216

== ENCOUNTER 2023-05-11 10:59 | Emergency (ER) | payer MEDICARE, SELFPAY ==
[2023-05-11 11:00] VITALS: BP 174/70; PULSE 72; RESP 14; TEMP 36.3; O2SAT 97; BMI 36.8
--- NOTE | 2023-05-11 12:03 | RAD_ITS ---
STUDY: X-RAY - LEFT HUMERUS REASON FOR EXAM: Female, 82 years old. Upper arm pain. TECHNIQUE: 3 view(s) of the humerus. COMPARISON: None. FINDINGS: Normal visualized humerus. There is no demonstrated fracture or osseous destructive process. Degenerative spur formation of the olecranon process of the proximal ulna. Degenerative changes of the acromioclavicular joint. There is no demonstrated soft tissue abnormality. RAD/Humerus min 2 Views IMPRESSION: Degenerative changes. No evidence of fracture or dislocation. Electronically Signed: José Antonio Reyna MD at 12:26 EDT ,
--- NOTE | 2023-05-11 12:59 | EKG12_ITS ---
Test Reason : GENERAL Blood Pressure : / mmHG Vent. Rate : 067 BPM Atrial Rate : 067 BPM P-R Int : 186 ms QRS Dur : 078 ms QT Int : 390 ms P-R-T Axes : 073 038 012 degrees QTc Int : 412 ms Normal sinus rhythm Normal ECG Confirmed by CONSTANZA PEREA, NELSON ([id number]), assistant film editor MIKAEL STUART ([id number]) on 05/12/2023 2:21:33 PM Referred By: Confirmed By:NELSON APODACA MD
--- NOTE | 2023-05-11 13:00 | EX.ED.UPPERE ---
HPI History of Present Illness Chief Complaint: Upper Extremity Injury Detail of Chief Complaint: left arm pain Informant: patient Onset/Context/Timing Onset: Yesterday Timing: Intermittent and Lasts (unk) Quality of Pain: - (pain) Location: left upper arm Current Severity: Gone Maximum Severity: Moderate Worsened by: unk Relieved by: unk Associated Symptoms Associated Symptoms: Negative for Parasthesia, Weakness or Loss of Funtion Narrative Narrative: Patient states she has been having episodes of left arm pain. The last 1 happened this morning. She is a very poor historian, she does not recall injuring it however. She denies having any chest pain or trouble breathing that she knows of. She does not know if she has a history of heart problems or not. She states she is asymptomatic at the current moment. There is no one else here currently to provide history. [facility] Medical History Anxiety Back pain Cancer Confusion Diabetes History of encephalopathy Hyperkalemia Hypertension Osteopenia Home Medications aspirin 81 mg chewable tablet 81 mg PO DAILY@0800 heart health 09/15/13 [History Last Taken 05/16/17] arm brace (Wrist Brace) #2 ea 02/20/21 [Rx Last Taken Unknown] multivitamin 1 tablet PO DAILY supplement 02/20/21 [History Last Taken Unknown] acetaminophen 325 mg tablet (Tylenol) 650 mg (2 x 325 mg) PO Q6H PRN PRN Pain 1-10 Or Fever #1 TAB 10/03/21 [Rx Last Taken Unknown] lisinopril 5 mg tablet 5 mg PO DAILY #90 tabs 03/04/22 [Rx Last Taken Unknown] citalopram 20 mg tablet See Rx Instructions .Route .COMPLEX #90 tabs 02/09/23 [Rx Last Taken Unknown] Allergy/AdvReac Type Severity Reaction Status Date / Time codeine AdvReac Other Verified 05/11/23 11:04 Family History Mother Hypertension Cancer lymphoma Diabetes Sister Colon cancer Brother CVA (cerebral vascular accident) Social History Smoking Status: Never smoker alcohol intake: current alcohol intake frequency: holidays/special occasions only Alcohol type: beer substance use type: does not use what type of physical activity do you participate in: walking frequency: 3-4 times per week ROS ROS ED Constitutional Constitutional ED: Denies chills or fever(s) Eyes Eyes: Denies change in vision or diplopia ENT ENT ED: Denies rhinorrhea or sore throat Cardiovascular Cardiovascular: Denies chest pain or palpitations Respiratory/Chest Respiratory/Chest: Denies cough or dyspnea Gastrointestinal Gastrointestinal: Denies abdominal pain, diarrhea, nausea or vomiting Genitourinary Genitourinary ED: Denies dysuria or hematuria Musculoskeletal Musculoskeletal: Reports as per HPI and extremity pain; Denies back pain or neck pain Integumentary Denies abscess or rash Neurologic Neurologic: Denies headache(s), paresthesias or weakness Psychiatric Psychiatric: Denies anxiety or suicidal thoughts EXAM Physical Exam Const Vital Signs: 05/11/23 11:00 Temperature 97.3 F L Temperature Source Temporal Pulse Rate 72 Respiratory Rate 14 Blood Pressure 174/70 H Blood Pressure Mean 104 Pulse Ox 97 Oxygen Delivery Method Room Air Positive well nourished and well developed General Appearance ED: well developed and NAD HEENT Reports moist mucous membranes normocephalic and atraumatic Eyes PERRL and EOMs intact bilaterally Neck full ROM and supple Resp normal respiratory effort and clear to auscultation bilaterally Cardio regular rate, regular rhythm and no murmurs GI non-tender and non-distended Auscultation: normoactive bowel sounds Palpation: soft Back/Spine no CVA tenderness General Back: other FROM Extremity normal to inspection Extremity Narrative: Full range of motion left upper extremity without any pain. No signs of injury. No ecchymosis. All compartments soft and nondistended. Nontender throughout. General Extremety ED: Negative for edema, pulses abnormal or tenderness General Extremity: Negative for edema or pulses abnormal Neuro CN's II-XII intact bilaterally and no sensory deficits noted Sensorium / Orientation: awake, alert and orientation impaired Motor Exam: strength 5/5 throughout Skin no rashes or lesions noted and no wounds MDM MDM MDM Narrative Medical decision making narrative: Patient basically with unexplained intermittent left arm pain that is not currently there. Work-up intended to rule out acute coronary syndrome. Initial EKG normal troponin normal. We were awaiting the delay before drawing second troponin, when her daughter showed up. She states to the nurse and I this is not her heart. She has been coming to ERs for 8 years for this, and it is coming from her neck, she does not have any heart issues, she is chronically confused, and we are not waiting for the second blood test and I am taking her home. Given this I am more than happy to discharge the patient with appropriate follow-up and she is comfortable with that plan. Of note, a 2 view left humerus x-ray was obtained by nurses via protocol, not knowing the exact history, on my interpretation these are negative, radiology in agreement, and 2 view chest x-ray ordered by myself negative for anything acute on my interpretation, radiology in agreement there as well. History & Record Review Additional record(s) reviewed:: Prior ED visit (For the last several years, no visits with similar symptoms to this 1.) Lab Data Attestation: I reviewed the patient's lab results. Lab results narrative: Impressions Humerus X-Ray 05/11/23 12:03 IMPRESSION: Degenerative changes. No evidence of fracture or dislocation. Electronically Signed: José Antonio Reyna MD at 12:26 EDT , Chest X-Ray 05/11/23 13:35 IMPRESSION: Stable mild increased linear markings at the lung bases suggestive of bibasilar scarring. Electronically Signed: José Antonio Reyna MD at 14:16 EDT , 05/11/23 12:03 Humerus min 2 Views [RAD] Stat 05/11/23 13:35 Chest PA and Lateral [RAD] Stat Laboratory Results 05/11/23 13:30 WBC 6.3 RBC 4.91 Hgb 13.9 Hct 42.4 MCV 86.4 MCH 28.3 MCHC 32.8 RDW Std Deviation 40.5 RDW Coeff of Te 12.8 Plt Count 184 MPV 11.3 Immature Gran % (Auto) 0.300 Neut % (Auto) 65.6 Lymph % (Auto) 23.5 [place] % (Auto) 7.4 Eos % (Auto) 2.4 Baso % (Auto) 0.8 Absolute Neuts (auto) 4.2 Absolute Lymphs (auto) 1.49 Nucleated RBC % 0 Sodium 140 Potassium 4.8 Chloride 107 Carbon Dioxide 31.0 Anion Gap 2 L BUN 15 Creatinine 1.33 H Estim Creat Clear Calc 26.98 Est GFR (MDRD) Af Amer 49 L Est GFR (MDRD) Non-Af 41 L BUN/Creatinine Ratio 11.3 Glucose 106 Calcium 9.0 Troponin I High Sens 4 Radiography Diagnostic Testing: Clinical Impression(s) from Imaging Studies Humerus X-Ray 05/11/23 12:03 IMPRESSION: Degenerative changes. No evidence of fracture or dislocation. Electronically Signed: José Antonio Reyna MD at 12:26 EDT , Rhythm Strip Rhythm Strip: Sinus Rhythm Rate: 65 Ectopy: None EKG Initial EKG: Attestation: I personally reviewed and interpreted this EKG as follows: Interpretation: Sinus Rhythm and No Acute Injury Pattern Comments: Normal EKG Prior EKG tracings: available for review Prior: Unchanged Discharge Plan Triage Chief Complaint: Upper Extremity Injury ED Provider: Ottoniel Martino Dx/Rx/DC Orders Clinical Impression: Radicular pain in left arm, History of encephalopathy Instructions: Radiculopathy Cervical, ED Radiculopathy, Cervical Prescriptions: No Action multivitamin Tablet 1 tablet PO DAILY (DME) Wrist Brace Misc See Rx Instructions .ROUTE .MEDSUPPLY Qty: 2 2RF Rx Instructions: As directed aspirin 81 MG tablet,chewable 81 mg PO DAILY@0800 Patient Comments: Blood thinner for heart health acetaminophen [Tylenol] 325 mg Tablet 650 mg PO Q6H PRN PRN (Reason: Pain 1-10 Or Fever) Qty: 1 0RF lisinopril 5 mg tablet 5 mg PO DAILY Qty: 90 3RF citalopram 20 mg tablet See Rx Instructions .ROUTE .COMPLEX Qty: 90 0RF Dose Instruction: TAKE 1 TABLET EVERY DAY Rx Instructions: TAKE 1 TABLET EVERY DAY Primary Care Provider: Leanna El Referrals: Leanna El MD [Primary Care Provider] - 1 Week if not improving Disposition Disposition: Home, Self Care Discharge Date/Time: 05/11/23 15:44 Heart Score History: Moderately Suspicious Age: >/= 65 years Risk Factors: 1 or 2 Risk Factors Score: 4
[2023-05-11 13:18] VITALS: BP 137/68; PULSE 18; RESP 16; O2SAT 98
[2023-05-11] MEDS: Aspirin 81 MG TAB.CHEW 324 MG PO (13:21)
--- NOTE | 2023-05-11 13:35 | RAD_ITS ---
STUDY: X-RAY CHEST REASON FOR EXAM: Female, 82 years old. Chest pain TECHNIQUE: PA and lateral views of the chest. COMPARISON: Comparison is made with prior study August 09, 2022. FINDINGS: EKG electrodes are seen. Stable mild increased interstitial markings at the lung bases suggestive of scarring. No acute infiltrate is seen. There is no demonstrated pleural abnormality. Normal size heart. Normal mediastinum and jailene. Normal visualized pulmonary arteries. There is atherosclerotic calcification of the aortic arch with tortuosity. There are diffuse degenerative changes of the visualized thoracic spine. There is degenerative osteoarthritis of the bilateral shoulders. There is no demonstrated abnormality of the visualized soft tissue structures of the upper abdomen. RAD/Chest PA and Lateral IMPRESSION: Stable mild increased linear markings at the lung bases suggestive of bibasilar scarring. Electronically Signed: José Antonio Reyna MD at 14:16 EDT ,
[2023-05-11 13:42] LABS: Absolute Lymphocyte Count 1.49 X10^3/uL (0.83-4.51); Absolute Neutrophil Count 4.2 X10^3/uL (2.0-7.7); Basophil# 0.05 X10^3/uL; Basophil% 0.8 % (0-1); Eosinophil# 0.15 X10^3/uL; Eosinophils% 2.4 % (0-5); Hematocrit 42.4 % (37-47); Hemoglobin 13.9 g/dL (12.0-15.0); Lymphocyte # 1.49 X10^3/ul (0.83-4.51); Lymphocyte % 23.5 % (19-41); Mean Corp Hgb Conc 32.8 g/dL (32-36); Mean Corpuscular Hgb 28.3 pg (27.0-32.0); Mean Corpuscular Volume 86.4 fL (81-99); Mean Platelet Vol. 11.3 fl (6.2-12.0); Monocyte# 0.47 X10^3/uL; Monocyte% 7.4 % (0-10); NRBC Flagged by Analyzer 0 % (0-5); Neutrophil # 4.16 X10^3/uL (2.7-7.7); Neutrophil % 65.6 % (47-70); Platelet Count 184 K/mm3 (150-450); RBC Distribution Width CV 12.8 % (11.6-14.6); RBC Distribution Width SD 40.5 fl (35.1-43.9); Red Blood Count 4.91 M/mm3 (4.2-5.4); White Blood Count 6.3 K/mm3 (4.4-11.0)
[2023-05-11 13:45] VITALS: BP 157/75; PULSE 69; RESP 15; O2SAT 100
[2023-05-11 14:05] LABS: Anion Gap 2 (5-15); BUN 15 mg/dL (7-18); BUN/Creat Ratio 11.3 RATIO (10-20); Chloride 107 mmol/L (98-107); Creatinine, Serum 1.33 mg/dL (0.55-1.02); EST Glomerular Filtration Rate 41 mL/min (>60); Est Glom Filt Rate - Afr Amer 49 mL/min (>60); Estimated Creatinine Clearance 26.98 ml/min; Glucose 106 mg/dL (74-106); Potassium 4.8 mmol/L (3.5-5.1); Sodium Level 140 mmol/L (136-145); Troponin-I HS (w/2H Reflex) 4 pg/mL (3.0-54.0)
[2023-05-11 14:30] VITALS: BP 151/61; PULSE 69; RESP 16; O2SAT 95
[2023-05-11 15:05] VITALS: BP 159/73; PULSE 73; RESP 16; O2SAT 96
[2023-05-11 15:35] LABS: Reflex Troponin-HS? (from REC) Y
[2023-05-11 15:42] VITALS: BP 136/58; PULSE 67; RESP 16; O2SAT 97
--- NOTE | 2023-05-11 15:44 | ED.RN ---
Pt's daughter Marly states she is taking mother home, does not want to wait on repeat 2 hr Troponin. This RN explained purpose for cardiac work up was due to pt's complaints of left arm pain without injury. Daughter states her arm doesn't hurt, it's her neck! She's too confused to know better, I've been taking her to the chiropractor for it Daughter states pt had called her this am complaining of pain, daughter told her to call 911. Daughter arrived at bedside after initial work up completed. Daughter requests ED MD come back for re-evaluation and then discharge. MD notified.
== END 2023-05-11 15:44 | disposition home or self-care (01) ==
PROVIDERS: Emergency Provider Emergency Medicine; PCP Internal Medicine; Visit Provider Emergency Medicine
DX: M54.10 Radiculopathy, site unspecified (principal); E11.9 Type 2 diabetes mellitus without complications; M79.602 Pain in left arm; I10 Essential (primary) hypertension; Z79.82 Long term (current) use of aspirin; Z79.899 Other long term (current) drug therapy
CPT/HCPCS: 71046; 73060; 80048; 84484; 85025; 93005; 99285; A4216

== ENCOUNTER 2023-10-04 11:07 | Emergency (ER) | payer MEDICARE, SELFPAY ==
[2023-10-04 11:11] VITALS: BP 148/73; PULSE 72; RESP 12; TEMP 36.6; O2SAT 96; BMI 39.3
--- NOTE | 2023-10-04 11:30 | CT_ITS ---
STUDY: CT BRAIN WITHOUT CONTRAST REASON FOR EXAM: Female, 83 years old. headache RADIATION DOSAGE (If Supplied By Facility): CTDIvol = ( 44.99 ) mGy, DLP = ( 796.11 ) mGycm TECHNIQUE: Transaxial CT imaging of the brain was performed without administration of intravenous contrast material. Individualized dose optimization techniques were used for this CT. COMPARISON: 08/09/2022 FINDINGS: Normal soft tissue structures. Normal calvarium. There is a stable focus of hyperdensity in the right frontal lobe unchanged from previous studies, likely a cavernous angioma. This was noted by the [facility] mckay but is not an acute hemorrhage There is moderate cerebral atrophy with widening of the extra-axial spaces and ventricular dilatation. There are areas of decreased attenuation within the white matter tracts of the supratentorial brain, consistent with microvascular disease changes. Normal basal ganglia and thalami. Normal brainstem. There is mild cerebellar atrophy. There is no intracranial hemorrhage. There are no findings of an acute ischemic infarction. Normal visualized paranasal sinuses. CT/Brain/Head without Contrast IMPRESSION: Chronic involutional changes of the brain. 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 No interval change Electronically Signed: Jose Cho MD at 12:19 EST ,
--- NOTE | 2023-10-04 11:30 | CT_ITS ---
STUDY: CT CERVICAL SPINE WITHOUT CONTRAST REASON FOR EXAM: Female, 83 years old. Neck pain and headache RADIATION DOSAGE (If Supplied By Facility): CTDIvol = ( 21.91 ) mGy, DLP = ( 384.24 ) mGycm TECHNIQUE: High resolution transaxial imaging was performed without contrast material. Sagittal and coronal images were reconstructed. Individualized dose optimization techniques were used for this CT. COMPARISON: None FINDINGS: Normal craniovertebral junction. Normal anterior atlantoaxial articulation. Normal odontoid process. There is straightening of the normal cervical lordosis. Normal vertebral bodies and posterior osseous elements. C2-3: Normal endplates. Disc space narrowing.. Normal central canal and intervertebral neuroforamina. C3-4: Normal endplates. Disc space narrowing with uncovertebral spurs. No central canal stenosis, there is bilateral foraminal narrowing due to the uncovertebral spurs and facet joint hypertrophy. C4-5: Normal endplates. Disc space narrowing.. Normal central canal and intervertebral neuroforamina. C5-6: Normal endplates. Disc space narrowing with uncovertebral spurs. No central canal stenosis, there is bilateral foraminal narrowing due to the uncovertebral spurs and facet joint hypertrophy. C6-7: Normal endplates. Disc space narrowing.. Normal central canal and intervertebral neuroforamina. C7-T1: Normal endplates. Disc space narrowing.. Normal central canal and intervertebral neuroforamina. Soft tissues show low-density thyroid nodules. No suspicious soft tissue mass airway narrowing deviation. Lung apices show some opacification without discrete lesion. CT/Spine Cervical without Contras IMPRESSION: Multilevel degenerative changes, as described above. Electronically Signed: Jose Cho MD at 12:27 EST ,
--- NOTE | 2023-10-04 11:33 | EX.ED.VIS.HA ---
HPI <COMFORT Guzman - Last Filed: 10/04/23 16:15> History of Present Illness Chief Complaint: Other, Pain/Inj Narrative Narrative: Patient presenting today due to a headache that started this morning when she woke up. Patient arrived via EMS who reported that she was complaining of a headache and right-sided neck pain. However, patient is a very poor historian and now reports that she does not have a headache. When I ask again if she is having a headache, she reports,I do not know. She does report that she has a history of headaches. When asked if patient is having any neck pain, she says she does not. Patient is here by herself, there is no one else to provide history. She reports that she felt a little lightheaded this morning as well. She denies any visual changes, nausea, vomiting, chest pain, and shortness of breath. PFSH <COMFORT Guzman - Last Filed: 10/04/23 16:15> [facility] Medical History Anxiety Back pain Cancer Confusion Diabetes History of encephalopathy Hyperkalemia Hypertension Osteopenia Home Medications aspirin 81 mg chewable tablet 81 mg PO DAILY@0800 heart health 09/15/13 [History Last Taken 05/16/17] arm brace (Wrist Brace) #2 ea 02/20/21 [Rx Last Taken Unknown] multivitamin 1 tablet PO DAILY supplement 02/20/21 [History Last Taken Unknown] acetaminophen 325 mg tablet (Tylenol) 650 mg (2 x 325 mg) PO Q6H PRN PRN Pain 1-10 Or Fever #1 TAB 10/03/21 [Rx Last Taken Unknown] lisinopril 5 mg tablet 5 mg PO DAILY #90 tabs 03/04/22 [Rx Last Taken Unknown] citalopram 20 mg tablet See Rx Instructions .Route .COMPLEX #90 tabs 02/09/23 [Rx Last Taken Unknown] Allergy/AdvReac Type Severity Reaction Status Date / Time codeine AdvReac Other Verified 05/11/23 11:04 Family History Mother Hypertension Cancer lymphoma Diabetes Sister Colon cancer Brother CVA (cerebral vascular accident) Social History Smoking Status: Never smoker alcohol intake: current alcohol intake frequency: holidays/special occasions only Alcohol type: beer substance use type: does not use what type of physical activity do you participate in: walking frequency: 3-4 times per week ROS <COMFORT Guzman - Last Filed: 10/04/23 16:15> ROS ED Constitutional Constitutional ED: Denies chills or fever(s) Eyes Eyes: Denies change in vision Cardiovascular Cardiovascular: Denies chest pain Respiratory/Chest Respiratory/Chest: Denies cough or dyspnea Gastrointestinal Gastrointestinal: Denies abdominal pain, nausea or vomiting Genitourinary Genitourinary ED: Denies dysuria, hematuria or urinary urgency Musculoskeletal Musculoskeletal: Denies arthralgias, myalgias or neck pain Integumentary Denies rash Neurologic Neurologic: Denies dizziness or weakness EXAM <COMFORT Guzman - Last Filed: 10/04/23 16:15> Physical Exam Const Vital Signs: 10/04/23 11:11 10/04/23 11:14 10/04/23 13:26 Temperature 97.8 F Temperature Source Temporal Pulse Rate 72 66 Respiratory Rate 12 15 Respiratory Effort Normal Non-Labored Blood Pressure 148/73 H 111/66 Blood Pressure Mean 98 81 Pulse Ox 96 97 Oxygen Delivery Method Room Air Positive well nourished, well developed and no apparent distress General Appearance ED: well developed HEENT Reports normocephalic and head/scalp atraumatic Mouth ED: Yes moist mucous membranes normal Eyes PERRL and EOMs intact bilaterally Neck full ROM and supple Chest Wall inspection of chest normal Resp normal respiratory effort and clear to auscultation bilaterally Cardio regular rate and regular rhythm GI soft to palpation, non-tender, non-distended and no masses Back/Spine normal ROM and normal to inspection Extremity normal to inspection and full ROM Neuro oriented x3, CN's II-XII intact bilaterally, moves all extremities, no focal motor deficits and no sensory deficits noted Sensorium / Orientation: awake and alert Psych Psych Narrative: Patient does appear to have some confusion, although she is alert and oriented x3 Skin no rashes or lesions noted and no wounds <Dr. Ottoniel Martino MD - Last Filed: 10/04/23 13:03> Physical Exam Const Vital Signs: 10/04/23 11:11 10/04/23 11:14 10/04/23 13:26 Temperature 97.8 F Temperature Source Temporal Pulse Rate 72 66 Respiratory Rate 12 15 Respiratory Effort Normal Non-Labored Blood Pressure 148/73 H 111/66 Blood Pressure Mean 98 81 Pulse Ox 96 97 Oxygen Delivery Method Room Air [facility] <COMFORT Guzman - Last Filed: 10/04/23 16:15> [facility] Narrative Medical decision making narrative: Patient presenting due to a headache and lightheadedness that started this morning. She reports that the headache was at the base of her skull all, however now she is not sure whether or not she has a headache. At one point she tells me that she does have a headache, and then when asked again she reports, I do not know, and then she reports that she does not have a headache. She is denying neck pain. Patient does have a history of confusion. She was given Tylenol. Basic labs will be obtained as well as a CT of the head and neck to rule out intracranial bleed/ abnormality. CTs negative for any acute findings. CBC is unremarkable BMP shows creatinine of 1.38, BUN of 22. Troponin 5. EKG is normal sinus rhythm. She was given IV fluids. On reexamination she reports that she is feeling well. Her daughter is in the room with her who reports that she has a history of chronic neck pain and her confusion is at baseline. Given patient is feeling well, she will be discharged home in stable condition and is comfortable with plan. Daughter is comfortable with plan. Lab Data Attestation: I reviewed the patient's lab results. Labs: Laboratory Results - last 24 hr 10/04/23 11:40 WBC 5.4 RBC 4.56 Hgb 12.9 Hct 39.3 MCV 86.2 MCH 28.3 MCHC 32.8 RDW Std Deviation 40.4 RDW Coeff of Te 12.9 Plt Count 167 MPV 11.7 Immature Gran % (Auto) 0.700 Neut % (Auto) 57.7 Lymph % (Auto) 27.4 [place] % (Auto) 9.8 Eos % (Auto) 3.5 Baso % (Auto) 0.9 Absolute Neuts (auto) 3.1 Absolute Lymphs (auto) 1.48 Nucleated RBC % 0 Sodium 139 Potassium 4.2 Chloride 107 Carbon Dioxide 30.0 Anion Gap 2 L BUN 22 H Creatinine 1.38 H Estim Creat Clear Calc 25.55 Est GFR (MDRD) Af Amer 47 L Est GFR (MDRD) Non-Af 39 L BUN/Creatinine Ratio 15.9 Glucose 86 Calcium 8.5 Troponin I High Sens 5 Radiography Diagnostic Testing: Clinical Impression(s) from Imaging Studies Brain CT 10/04/23 11:30 IMPRESSION: Chronic involutional changes of the brain. 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 No interval change Electronically Signed: Jose Cho MD at 12:19 EST , Cervical Spine CT 10/04/23 11:30 IMPRESSION: Multilevel degenerative changes, as described above. Electronically Signed: Jose Cho MD at 12:27 EST , EKG Initial EKG: Comments: 65 bpm, normal sinus rhythm, no ST elevation, reviewed and interpreted by attending ED physician <Dr. Ottoniel Martino MD - Last Filed: 10/04/23 13:03> [facility] Lab Data Labs: Laboratory Results - last 24 hr 10/04/23 11:40 WBC 5.4 RBC 4.56 Hgb 12.9 Hct 39.3 MCV 86.2 MCH 28.3 MCHC 32.8 RDW Std Deviation 40.4 RDW Coeff of Te 12.9 Plt Count 167 MPV 11.7 Immature Gran % (Auto) 0.700 Neut % (Auto) 57.7 Lymph % (Auto) 27.4 [place] % (Auto) 9.8 Eos % (Auto) 3.5 Baso % (Auto) 0.9 Absolute Neuts (auto) 3.1 Absolute Lymphs (auto) 1.48 Nucleated RBC % 0 Sodium 139 Potassium 4.2 Chloride 107 Carbon Dioxide 30.0 Anion Gap 2 L BUN 22 H Creatinine 1.38 H Estim Creat Clear Calc 25.55 Est GFR (MDRD) Af Amer 47 L Est GFR (MDRD) Non-Af 39 L BUN/Creatinine Ratio 15.9 Glucose 86 Calcium 8.5 Troponin I High Sens 5 Radiography Diagnostic Testing: Clinical Impression(s) from Imaging Studies Brain CT 10/04/23 11:30 IMPRESSION: Chronic involutional changes of the brain. 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 No interval change Electronically Signed: Jose Cho MD at 12:19 EST , Cervical Spine CT 10/04/23 11:30 IMPRESSION: Multilevel degenerative changes, as described above. Electronically Signed: Jose Cho MD at 12:27 EST , Treatment and Re-Evaluation Narrative: I have personally performed a face to face assessment of the patient and have reviewed the TIA Note. I performed a substantive portion of the visit including all aspects of the following. My kenney findings include: History is patient states she has a mild headache now but earlier the left side of her neck and posterior head were bothering her. She denies any fall or injury. Denies any other new symptoms. Exam is full range of motion of her head/neck without apparent difficulty, no paraspinal tenderness no mastoid tenderness, no sternocleidomastoid tenderness no carotid bruits, normal peripheral neurologic exam, heart regular, lungs clear to auscultation no respiratory distress speaking in full sentences. Intact distal pulses. Medical Decison Making very poor historian not able to give us any details about any of this. Has been here for neck pain in the past. When asked if she has chronic pain she states she does not know. Therefore workup directed to rule out emergent medical condition such as intracranial hemorrhage, cervical spine fracture, unstable angina with atypical presentation. If negative, she was given Tylenol for mild head pressure and plan will be to discharge home if well on reevaluation. Other additions or changes: [None] Discharge Plan Triage Chief Complaint: Other, Pain/Inj Other Complaint: Headache ED Midlevel Provider: Shima Lowery ED Provider: Ottoniel Martino Dx/Rx/DC Orders Clinical Impression: Headache Instructions: Understanding Headache Pain Prescriptions: No Action multivitamin Tablet 1 tablet PO DAILY (DME) Wrist Brace Misc See Rx Instructions .ROUTE .MEDSUPPLY Qty: 2 2RF Rx Instructions: As directed aspirin 81 MG tablet,chewable 81 mg PO DAILY@0800 Patient Comments: Blood thinner for heart health acetaminophen [Tylenol] 325 mg Tablet 650 mg PO Q6H PRN PRN (Reason: Pain 1-10 Or Fever) Qty: 1 0RF lisinopril 5 mg tablet 5 mg PO DAILY Qty: 90 3RF Patient Comments: HASN'T HAD REFILLED FOR APPROX 1 MONTH citalopram 20 mg tablet See Rx Instructions .ROUTE .COMPLEX Qty: 90 0RF Dose Instruction: TAKE 1 TABLET EVERY DAY Rx Instructions: TAKE 1 TABLET EVERY DAY Primary Care Provider: Cecily Syed Referrals: Cecily Syed MD [Primary Care Provider] - 3-5 Days Activity Restrictions/Additional Instructions: Follow-up with your PCP. Return for any worsening of your symptoms. Disposition Disposition: Home, Self Care Discharge Date/Time: 10/04/23 13:38
[2023-10-04 11:51] LABS: Absolute Lymphocyte Count 1.48 X10^3/uL (0.83-4.51); Absolute Neutrophil Count 3.1 X10^3/uL (2.0-7.7); Basophil# 0.05 X10^3/uL; Basophil% 0.9 % (0-1); Eosinophil# 0.19 X10^3/uL; Eosinophils% 3.5 % (0-5); Hematocrit 39.3 % (37-47); Hemoglobin 12.9 g/dL (12.0-15.0); Lymphocyte # 1.48 X10^3/ul (0.83-4.51); Lymphocyte % 27.4 % (19-41); Mean Corp Hgb Conc 32.8 g/dL (32-36); Mean Corpuscular Hgb 28.3 pg (27.0-32.0); Mean Corpuscular Volume 86.2 fL (81-99); Mean Platelet Vol. 11.7 fl (6.2-12.0); Monocyte# 0.53 X10^3/uL; Monocyte% 9.8 % (0-10); NRBC Flagged by Analyzer 0 % (0-5); Neutrophil # 3.12 X10^3/uL (2.7-7.7); Neutrophil % 57.7 % (47-70); Platelet Count 167 K/mm3 (150-450); RBC Distribution Width CV 12.9 % (11.6-14.6); RBC Distribution Width SD 40.4 fl (35.1-43.9); Red Blood Count 4.56 M/mm3 (4.2-5.4); White Blood Count 5.4 K/mm3 (4.4-11.0)
[2023-10-04] MEDS: Acetaminophen 325 MG Tablet 650 MG PO (11:58)
[2023-10-04 12:01] LABS: Anion Gap 2 (5-15); BUN 22 mg/dL (7-18); BUN/Creat Ratio 15.9 RATIO (10-20); Calcium,Total 8.5 mg/dL (8.5-10.1); Chloride 107 mmol/L (98-107); Creatinine, Serum 1.38 mg/dL (0.55-1.02); EST Glomerular Filtration Rate 39 mL/min (>60); Est Glom Filt Rate - Afr Amer 47 mL/min (>60); Estimated Creatinine Clearance 25.55 ml/min; Glucose 86 mg/dL (74-106); Potassium 4.2 mmol/L (3.5-5.1); Sodium Level 139 mmol/L (136-145)
[2023-10-04] MEDS: 0.9% Normal Saline (500mL Bag) 500 ML 999 ML IV (13:03)
[2023-10-04 13:08] LABS: Troponin-I HS 5 pg/mL (3.0-54.0)
[2023-10-04 13:26] VITALS: BP 111/66; PULSE 66; RESP 15; O2SAT 97
== END 2023-10-04 13:38 | disposition home or self-care (01) ==
PROVIDERS: Physician Assistant; Emergency Provider Emergency Medicine; PCP Internal Medicine; Referring Provider Emergency Medicine; Visit Provider Emergency Medicine
DX: R51.9 Headache, unspecified (principal); E11.9 Type 2 diabetes mellitus without complications; R42 Dizziness and giddiness; R41.0 Disorientation, unspecified; I10 Essential (primary) hypertension; M54.2 Cervicalgia; G89.29 Other chronic pain; Z79.82 Long term (current) use of aspirin; Z79.899 Other long term (current) drug therapy
CPT/HCPCS: 70450; 72125; 80048; 84484; 85025; 93005; 99284; J7030; A4216

== ENCOUNTER 2025-01-24 17:04 | Inpatient (IN) | payer MEDICARE, SELFPAY ==
[2025-01-24 17:05] VITALS: BP 136/98; PULSE 86; RESP 16; TEMP 36.6; O2SAT 95; BMI 37.5
[2025-01-24 17:10] VITALS: O2SAT 98
--- NOTE | 2025-01-24 18:05 | CT_ITS ---
PROCEDURE: SPINE LUMBAR WITHOUT CONTRAST 01/24/2025 REASON FOR EXAM: 84-year-old female, fall last night, back pain. TECHNIQUE: Lumbar spine CT without contrast. Coronal and Sagittal reconstruction series were provided. One or more dose reduction techniques were used (e.g., Automated exposure control, adjustment of the mA and/or kV according to patient size, use of iterative reconstruction technique COMPARISON: None. RADIATION DOSE SUMMARY: CTDlvol: 33 mGy DLP: 1100 mGycm FINDINGS: Vertebrae: No acute osseous fracture. The vertebral body heights are maintained. Alignment: No traumatic listhesis. Vacuum effect of the L3-4 intervertebral disc with Schmorl's node along the superior L4 endplate. Additional multilevel degenerative disc disease with ligamentum flavum thickening and uncovertebral facet hypertrophy resulting in mild central and mild bilateral neural foraminal stenosis at L3-4. Sacrum: Arthrosis of the bilateral SI joints. Fibroid uterus. Calcific plaque of the aortoiliac vessels. CT/Spine Lumbar without Contrast IMPRESSION: NO ACUTE LUMBAR FRACTURE. DEGENERATIVE CHANGES. Reading Location: [id number]
--- NOTE | 2025-01-24 18:05 | RAD_ITS ---
PROCEDURE: CHEST PA AND LATERAL 01/24/2025 REASON FOR EXAM: 84-year-old female, weakness. TECHNIQUE: Single view chest with supine and upright views of the abdomen. COMPARISON: Chest radiograph 05/11/2023. FINDINGS: Hardware: None. Heart: Cardiac and mediastinal contours are stable. Lungs: Stable bibasilar scarring. No focal consolidation, pleural effusion or pneumothorax. Bones: There are degenerative changes of the spine. RAD/Chest PA and Lateral IMPRESSION: NO ACUTE FINDINGS Reading Location: [id number]
--- NOTE | 2025-01-24 18:05 | EKG12_ITS ---
Test Reason : FALL Blood Pressure : */* mmHG Vent. Rate : 76 BPM Atrial Rate : 76 BPM P-R Int : 184 ms QRS Dur : 80 ms QT Int : 376 ms P-R-T Axes : 43 36 22 degrees QTcB Int : 423 ms Normal sinus rhythm Normal ECG Confirmed by CONSTANZA PEREA, NELSON ([id number]), graphics editor TONE ESPINOZA ([id number]) on 01/25/2025 8:20:57 AM Referred By: LISA Confirmed By: NELSON APODACA MD
--- NOTE | 2025-01-24 18:05 | CT_ITS ---
PROCEDURE: SPINE CERVICAL WITHOUT CONTRAS 01/24/2025 REASON FOR EXAM: 84-year-old female, fall last night, neck pain. TECHNIQUE: Cervical spine CT without contrast. Coronal and Sagittal reconstruction series were provided. One or more dose reduction techniques were used (e.g., Automated exposure control, adjustment of the mA and/or kV according to patient size, use of iterative reconstruction technique RADIATION DOSE SUMMARY: See CT head. COMPARISON: CT C-spine 10/04/2023. FINDINGS: Alignment: No traumatic listhesis. Degenerative grade 1 retrolisthesis of C5 onto C6. Vertebrae: Diffuse osseous demineralization. The vertebral body heights are maintained. No acute osseous fracture. Multilevel degenerative disc disease with posterior disc osteophyte complexes and facet hypertrophy results in mild central spinal stenosis and severe central neural foraminal stenosis on the right at C5-6. Soft Tissues: No prevertebral or subcutaneous hematoma. Other: Stable bilateral thyroid nodules. Similar mosaic attenuation of the biapical lungs, unchanged since 2022 and likely due to expiratory phase imaging. CT/Spine Cervical without Contras IMPRESSION: NO ACUTE CERVICAL FRACTURE. DEGENERATIVE CHANGES. Reading Location: [id number]
--- NOTE | 2025-01-24 18:05 | CT_ITS ---
PROCEDURE: BRAIN/HEAD WITHOUT CONTRAST 01/24/2025 REASON FOR EXAM: 84-year-old female, head injury post fall last night. TECHNIQUE: Head CT without intravenous contrast. Coronal and Sagittal reconstruction series were provided. One or more dose reduction techniques were used (e.g., Automated exposure control, adjustment of the mA and/or kV according to patient size, use of iterative reconstruction technique. RADIATION DOSE SUMMARY: CTDlvol: 50 mGy DLP: 800 mGycm COMPARISON: CT head 10/04/2023. FINDINGS: Mild generalized cerebral and cerebellar volume loss with discordant prominence of the ventricles and subarachnoid spaces. Mild patchy supratentorial white matter hypodensities. Tiny chronic lacunar type infarct within the right basal ganglia. 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 The bruce-white matter interfaces are otherwise maintained. No acute intracranial hemorrhage or herniation. Prior bilateral scleral buckle surgery. The orbits are otherwise unremarkable. Trace left mastoid effusion. The visualized paranasal sinuses are otherwise well-aerated. No acute calvarial fracture or scalp hematoma. CT/Brain/Head without Contrast IMPRESSION: 1. No acute intracranial abnormality. 2. 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 Correlation with patient's symptoms is recommended. 3. Stable findings of chronic microvascular ischemic changes and age-related ch anges. Reading Location: [id number]
--- NOTE | 2025-01-24 18:07 | EDS_ITS ---
HPI HPI - Fall History of Present Illness Chief Complaint: Fall Informant: patient and family (Daughter at bedside.) Occured/Mechanism Occurred: Today Mechanism/Context: Yes same level fall Usually ambulates: Walker Pain/Injury Pain Location: head, neck and back Quality of Pain: Sharp Current Severity: Moderate Maximum Severity: Moderate Associated Symptoms Associated Symptoms: Positive for Weakness and Inability to ambulate; Negative for Parasthesias or Loss of function Narrative Narrative: 84-year-old female history of hypertension. This morning around 4:30 AM was walking through her house fell injuring the back of her head neck and lower back. Family helped get her back in bed but she has not been able to get out of bed the rest of the day. Denies recent illness. Denies nausea, vomiting, diarrhea or fever. Denies dysuria. Denies cough or shortness of breath. Complains of the head and neck pain and lower back pain post fall. She is on no blood thinners. She lives with family. They are concerned because of her overall weakness today. Prior similar symptoms: No Recent Illness/Hospitalization: No PFSH PFSH Medical History Dementia Hyperkalemia Confusion History of encephalopathy Back pain Diabetes Cancer Osteopenia Anxiety Hypertension Home Medications ?Medication ?Instructions ?Recorded ?Last Taken ?Type aspirin 81 mg chewable tablet 81 mg PO DAILY@0800 [facility] [employer] 09/15/13 05/16/17 History arm brace (Wrist Brace) #2 ea 02/20/21 Unknown Rx multivitamin 1 tablet PO DAILY supplement 02/20/21 Unknown History acetaminophen 325 mg tablet 650 mg (2 x 325 mg) PO Q6H PRN PRN 10/03/21 Unknown Rx (Tylenol) Pain 1-10 Or Fever #1 TAB lisinopril 5 mg tablet 5 mg PO DAILY #90 tabs 03/04 Unknown Rx citalopram 20 mg tablet See Rx Instructions .Route 0 02/09/23 Unknown Rx .COMPLEX #90 tabs Allergy/AdvReac Type Severity Reaction Status Date / Time codeine AdvReac Other Verified 01/24/25 17:09 Family History Mother Hypertension Cancer lymphoma Diabetes Sister Colon cancer Brother CVA (cerebral vascular accident) Social History household members: children housing: house Smoking Status: Never smoker alcohol intake: current alcohol intake frequency: holidays/special occasions only Alcohol type: beer substance use type: does not use what type of physical activity do you participate in: walking frequency: 3-4 times per week ROS ROS ED ROS Narrative Denies recent illness. Generally weak post the fall today. Constitutional Constitutional ED: Denies chills or fever(s) Eyes Eyes: Denies blurry vision ENT ENT ED: Denies ear pain Cardiovascular Cardiovascular: Denies chest pain Respiratory/Chest Respiratory/Chest: Denies cough or dyspnea Gastrointestinal Gastrointestinal: Denies abdominal pain Genitourinary Genitourinary ED: Denies dysuria or hematuria Musculoskeletal Musculoskeletal: Denies arthralgias Integumentary Denies abscess Neurologic Neurologic: Reports headache(s) and other Details: Post fall Psychiatric Psychiatric: Denies anxiety Endocrine Endocrinology: Denies polydipsia Hematologic/Lymphatic Hematologic/Lymphatic: Denies easy bleeding Allergic/Immunologic Allergic/Immunologic ED: Denies mouth swelling, tongue swelling or urticaria EXAM Physical Exam Narrative Exam Narrative: 84-year-old female sitting upright in bed. Daughter at bedside. Vital signs are stable afebrile. She does not look septic or toxic. She is in no acute distress. H EENT exam pupils round reactive light. Moist mucous membranes. No trauma to her face. Posterior scalp tenderness no hematoma. No laceration or blood. Tenderness also along the back of her neck. No bruising. Trachea midline. Upper back and ribs nontender. Lumbar spine lower back diffusely tender. No ecchymosis or bruising. Lungs clear to auscultation bilaterally. Heart regular rhythm rate about 85 no murmur. Chest wall ribs nontender. Abdomen soft nontender. Pelvic girdle intact. Moving all 4 extremities. Normal 5 out of 5 electro plater strength. Normal dorsi plantarflexion. No hip tenderness. No shortening or rotation of either lower extremity. Neurologically she is awake and alert. Answering questions following commands. Const Vital Signs: 01/24/25 17:05 01/24/25 17:10 01/24/25 19:07 Temperature 98 F Temperature Source Oral Pulse Rate 86 78 Respiratory Rate 16 18 Respiratory Effort Normal Non-Labored Respiratory Depth Normal Respiratory Pattern Normal Blood Pressure 136/98 H 148/59 H Blood Pressure Mean 110 88 Pulse Ox 95 98 95 Oxygen Delivery Method Room Air Room Air Room Air 01/24/25 20:23 01/24/25 21:00 Temperature 98.3 F Temperature Source Pulse Rate 78 75 Respiratory Rate 18 19 H Respiratory Effort Respiratory Depth Respiratory Pattern Blood Pressure 148/59 H Blood Pressure Mean 88 Pulse Ox 95 96 Oxygen Delivery Method Room Air Positive well nourished, well developed and obese; Negative for cachectic, contractures or unkempt General Appearance ED: well developed and NAD; Negative for unkempt, cachectic or contractures Nutritional Appearance: obese; Negative for cachectic HEENT Reports normocephalic trauma and contusion; Negative for atraumatic, hematoma or tenderness Eyes EOMs intact bilaterally Neck full ROM, no lymphadenopathy and supple Neck Narrative: Tender posterior scalp and posterior neck. General: tenderness Chest Wall inspection of chest normal and palpation of chest normal Resp normal respiratory effort, no retractions and clear to auscultation bilaterally Cardio regular rate, regular rhythm, S1 normal heart sound, S2 normal heart sound and no murmurs GI non-tender, non-distended and no masses Palpation: soft; Negative for guarding or rebound tenderness present Back/Spine no CVA tenderness Back/Spine Narrative: C-spine tenderness. Lumbar spine tenderness. Cervical Spine: cervical spine tenderness Lumbar Spine / Lower Back: lumbar spinal tenderness Neuro oriented x3, CN's II-XII intact bilaterally, moves all extremities and no focal motor deficits Sensorium / Orientation: alert, oriented to person, oriented to place and oriented to time; Negative for orientation impaired, confused, lethargic or stuporous Motor Exam: general weakness; Negative for strength 5/5 throughout Psych mental status grossly normal and thought process normal Appearance: Negative for unkempt Mood & Affect: Negative for depressed, anxious or tearful Skin Lesions: no lesions Rashes: no rashes MDM MDM MDM Narrative Medical decision making narrative: 84-year-old female fell at home today. Is generalized weakness. She complains of posterior headache post fall neck pain and low back pain. CAT scan of her head neck and lumbar spinal be obtained. Screening labs due to the weakness. EKG and chest x-ray. UA. Her vital signs are stable. She is afebrile. She may need to be admitted due to inability ambulate and generalized weakness. Repeat exam at 8:20 PM unchanged. Went over test results. Nurses tried to ambulate the patient and she was too weak to walk. She will be admitted. Have the hospitalist on page. CAT scan of the brain showed a possible normal pressure hydrocephalus. This may be a new finding compared to the prior CAT scan and prior MRI. The hospitalist and I discussed that. He is willing to admit her he is hoping that possibly we can get her in line to be transferred to another facility. But understands that most likely will be tonight. I did speak to [facility]. They cannot accept the patient tonight but they will put her on their wait list for possible transfer for further evaluation. Lab Data Attestation: I reviewed the patient's lab results. Lab results narrative: COVID, flu and RSV negative. CBC shows a white count 8. H&H 13 and 37. Platelets 172. Electrolytes show gap 15. BUN of 17 creatinine of 1. Liver enzymes unremarkable. UA shows positive nitrates no white or red cells. No bacteria. Labs: Laboratory Results - last 24 hr 01/24/25 01/24/25 18:10 18:15 WBC 8.6 RBC 4.55 Hgb 13.1 Hct 37.8 MCV 83.1 MCH 28.8 MCHC 34.7 RDW Std Deviation 39.8 RDW Coeff of Te 13.0 Plt Count 172 MPV 11.3 Immature Gran % (Auto) 0.200 Neut % (Auto) 74.3 H Lymph % (Auto) 16.4 L [place] % (Auto) 8.0 Eos % (Auto) 0.8 Baso % (Auto) 0.3 Absolute Neuts (auto) 6.4 Absolute Lymphs (auto) 1.42 Nucleated RBC % 0 Sodium 139 Potassium 4.0 Chloride 103 Carbon Dioxide 21.2 Anion Gap 15 BUN 17 Creatinine 1.05 Estim Creat Clear Calc 44.02 L Est GFR (MDRD) Non-Af 52 L BUN/Creatinine Ratio 16.4 Glucose 93 Calcium 8.5 Total Bilirubin 0.47 AST 24 ALT 21 Alkaline Phosphatase 75 Total Protein 6.1 Albumin 3.7 Globulin 2.4 Albumin/Globulin Ratio 1.6 Urine Color Yellow Urine Clarity Sl. Cloudy Urine pH 7.0 Ur Specific [place] 1.010 Urine Protein 15 H Urine Glucose (UA) Normal Urine Ketones Negative Urine Occult Blood 10 H Urine Nitrite Positive H Urine Bilirubin Negative Urine Urobilinogen Normal Ur Leukocyte Esterase 25 H Urine RBC 0-5 SEEN Urine WBC 0-5 SEEN Ur Squamous Epith Cells 0-5 SEEN Urine Bacteria 0 SEEN Urine Mucus 0 SEEN Radiography Chest X-Ray - ED: 2 View, Read by ED Physician, Read by Radiologist, Normal, Heart, Lungs, Mediastinum, Bony Structures, No Acute Disease and Chronic Changes Diagnostic Testing: Clinical Impression(s) from Imaging Studies Brain CT 01/24/25 18:05 IMPRESSION: 1. No acute intracranial abnormality. 2. 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 Correlation with patient's symptoms is recommended. 3. Stable findings of chronic microvascular ischemic changes and age-related changes. Reading Location: [facility] Cervical Spine CT 01/24/25 18:05 IMPRESSION: NO ACUTE CERVICAL FRACTURE. DEGENERATIVE CHANGES. Reading Location: [facility] Chest X-Ray 01/24/25 18:05 IMPRESSION: NO ACUTE FINDINGS Reading Location: [facility] Lumbar Spine CT 01/24/25 18:05 IMPRESSION: NO ACUTE LUMBAR FRACTURE. DEGENERATIVE CHANGES. Reading Location: [facility] Chest x-ray, 2 views, interpreted both by myself and the radiologist, AP and lateral shows no acute abnormality. Normal cardiac silhouette. Chronic changes. Rhythm Strip Rhythm Strip: Sinus Rhythm Rate: 76 Ectopy: None EKG Initial EKG: Attestation: I personally reviewed and interpreted this EKG as follows: Interpretation: Sinus Rhythm and No Acute Injury Pattern Comments: Normal sinus rhythm rate of 76 no acute signs of OK or ischemia. No dysrhythmia. Discharge Plan Dx/Rx/DC Orders Clinical Impression: Fall, Unable to ambulate, Dilated ventricle Disposition Disposition: [facility]
[2025-01-24 18:22] LABS: Absolute Lymphocyte Count 1.42 X10^3/uL (0.83-4.51); Absolute Neutrophil Count 6.4 X10^3/uL (2.0-7.7); Basophil# 0.03 X10^3/uL; Basophil% 0.3 % (0-1); Eosinophil# 0.07 X10^3/uL; Eosinophils% 0.8 % (0-5); Hematocrit 37.8 % (37-47); Hemoglobin 13.1 g/dL (12.0-15.0); Lymphocyte # 1.42 X10^3/ul (0.83-4.51); Lymphocyte % 16.4 % (19-41); Mean Corp Hgb Conc 34.7 g/dL (32-36); Mean Corpuscular Hgb 28.8 pg (27.0-32.0); Mean Corpuscular Volume 83.1 fL (81-99); Mean Platelet Vol. 11.3 fl (6.2-12.0); Monocyte# 0.69 X10^3/uL; NRBC Flagged by Analyzer 0 % (0-5); Neutrophil # 6.41 X10^3/uL (2.7-7.7); Neutrophil % 74.3 % (47-70); Platelet Count 172 K/mm3 (150-450); RBC Distribution Width SD 39.8 fl (35.1-43.9); Red Blood Count 4.55 M/mm3 (4.2-5.4); White Blood Count 8.6 K/mm3 (4.4-11.0)
[2025-01-24 18:25] LABS: Bacteria 0 SEEN /hpf (None Seen); Mucous, Urine 0 SEEN /hpf (<or=2+)
[2025-01-24 18:38] LABS: Color, Urine Yellow (Yellow); Glucose, Dipstick Normal (Normal); Ketone-Dipstick Negative (Negative); Leukocyte Esterase-Dipstick 25 /ul (Negative); Nitrite-Dipstick Positive (Negative); Occult Blood-Urine 10 /ul (Negative); Protein-Dipstick 15 mg/dl (Negative); Urine Bilirubin Dipstick Negative (Negative); Urine Clarity Sl. Cloudy (Clear); Urine Urobilinogen Normal (Normal)
[2025-01-24 18:49] LABS: ALB/GLOB Ratio 1.6 RATIO (0.9-2.4); AST(SGOT) 24 U/L (<=31); Alanine Aminotransfer ALT/SGPT 21 U/L (<=34); Albumin, Serum 3.7 g/dL (3.4-4.8); Alkaline Phosphatase 75 U/L (35-104); Anion Gap 15 (5-15); BUN 17 mg/dL (4-19); BUN/Creat Ratio 16.4 RATIO (10-20); Calcium,Total 8.5 mg/dL (7.6-11.0); Carbon Dioxide 21.2 mmol/L (21.0-32.0); Chloride 103 mmol/L (98-108); Creatinine, Serum 1.05 mg/dL (0.70-1.20); EST Glomerular Filtration Rate 52 (>60); Estimated Creatinine Clearance 44.02 ml/min (50-250); Globulin 2.4 g/dL (2.2-4.2); Glucose 93 mg/dL (70-99); Protein, Total 6.1 g/dL (5.9-8.4); Sodium Level 139 mmol/L (133-145); Total Bilirubin 0.47 mg/dL (0.00-1.30)
[2025-01-24 19:07] VITALS: BP 148/59; PULSE 78; RESP 18; O2SAT 95
[2025-01-24 19:10] LABS: Red Blood Cells-Urine 0-5 SEEN /hpf (0-5); White Blood Cells 0-5 SEEN /hpf (0-5)
[2025-01-24 19:11] LABS: Squamous Epithelial Cells - UA 0-5 SEEN /hpf (5-10)
[2025-01-24 20:23] VITALS: BP 148/59; PULSE 78; RESP 18; TEMP 36.8; O2SAT 95
--- NOTE | 2025-01-24 20:28 | HP.PCM.HOS_ITS ---
[facility] - General General Date of Admission: 01/24/25 Date of Service: 01/24/25 Chief Complaint: Fall at Home with Subsequent Inability to Ambulate. 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 Ms. Altamirano reports his symptoms began approximately 4:30 AM when she was walking through her house and fell injuring the back of her head, neck and lower back. Her family then came to her aid to help her get back in the bed - but she was not able to get out of the bed for the rest of the day due to persistent pain and generalized weakness so they brought her in for further evaluation and treatment. She admits to headache denies recent illness, recent medication changes, fever, chills, nausea, vomiting, diarrhea, constipation, abdominal pain, chest pain, palpitations, heart racing, SOB or rash - but her daughter reported she has had an escalating pattern of confusion and forgetfulness with urinary frequency and routine complaints of persistent headache with occasional blurred vision. In the ER she was noted to have a CT of the brain that revealed no acute intracranial abnormality - but with findings compatible with Normal Pressure Hydrocephalus in addition to findings of chronic microvascular ischemic changes and age-related changes with a review of her previous brain CT in September 2023 not showing any NPH findings, indicating that this is likely new, with recommendation made to the ER physician to arrange transfer to tertiary care center for formal neurologic evaluation and definitive treatment to prevent worsening of her condition. Her other imaging included CT scan of the cervical and lumbar spines in addition to a CXR that were negative for acute pathologic changes. Also her laboratory tests and vital signs were also unremarkable which further reinforced the already high-index of suspicion for NPH. She was then admitted to the general medical floor for ongoing care while she awaits transfer for a stay that is expected to extend beyond 2 midnights. [facility] Medical History Dementia Hyperkalemia Confusion History of encephalopathy Back pain Diabetes Cancer Osteopenia Anxiety Hypertension Home Medications ?Medication ?Instructions ?Recorded ?Last Taken ?Type aspirin 81 mg chewable tablet 81 mg PO DAILY@0800 [facility] 09/15/13 05/16/17 History arm brace (Wrist Brace) #2 ea 02/20/21 Unknown Rx Held on 01/24/25. Instructions: MD Ordered multivitamin 1 tablet PO DAILY supplement 02/20/21 Unknown History acetaminophen 325 mg tablet 650 mg (2 x 325 mg) PO Q6H PRN PRN 10/03/21 Unknown Rx (Tylenol) Pain 1-10 Or Fever #1 TAB lisinopril 5 mg tablet 5 mg PO DAILY htn #90 tabs 0 03/04/22 Unknown Rx citalopram 20 mg tablet See Rx Instructions .Route 0 02/09/23 Unknown Rx .COMPLEX depression #90 tabs Allergy/AdvReac Type Severity Reaction Status Date / Time codeine AdvReac Other Verified 01/24/25 17:09 Family History Mother Hypertension Cancer lymphoma Diabetes Sister Colon cancer Brother CVA (cerebral vascular accident) Social History household members: children housing: house Smoking Status: Never smoker alcohol intake: current alcohol intake frequency: holidays/special occasions only Alcohol type: beer substance use type: does not use what type of physical activity do you participate in: walking frequency: 3-4 times per week ROS ROS Narrative Review of Systems: Constitutional: Patient denies fever or chills. Eyes: Patient denies changes in vision or discharge from eyes. ENT: Patient denies runny nose, sore throat or ear pain. Resp: Patient denies SOB or cough. CV: Patient denies chest pain, palpitations, heart racing or LE edema. GI: Patient denies abdominal pain, nausea, vomiting, diarrhea or constipation. : Patient denies dysuria or hematuria. MSK: Patient admits to persistent diffuse pain in back and neck since her fall as per HPI. Skin: Patient denies rash, abscess, wounds or jaundice. Psych: Patient denies symptoms of uncontrolled depression or anxiety. Neuro: Patient admits to persistent headache and inability to ambulate due to a combination of pain and generalized weakness but she denies paresthesias or focal neurologic deficits. Allergy: Patient denies lip swelling, tongue swelling or urticaria. Hematology: Patient denies easy bleeding or easy bruisability. Endocrinology: Patient denies polyuria, polydipsia, polyphagia or heat/cold intolerance. 14 point ROS otherwise negative except for positives noted above in HPI. Vital Signs Vital Signs Vital Signs: 01/24/25 17:05 01/24/25 17:10 01/24/25 19:07 Temperature 98 F Temperature Source Oral Pulse Rate 86 78 Respiratory Rate 16 18 Respiratory Effort Normal Non-Labored Respiratory Depth Normal Respiratory Pattern Normal Blood Pressure 136/98 H 148/59 H Blood Pressure Mean 110 88 Pulse Ox 95 98 95 Oxygen Delivery Method Room Air Room Air Room Air 01/24/25 20:23 Temperature 98.3 F Temperature Source Pulse Rate 78 Respiratory Rate 18 Respiratory Effort Respiratory Depth Respiratory Pattern Blood Pressure 148/59 H Blood Pressure Mean 88 Pulse Ox 95 Oxygen Delivery Method Weight Weight: 212 lb 1.355 oz Body Mass Index (BMI) 37.5 Physical Exam Const alert, no apparent distress and average body habitus Constitutional Narrative: Patient is pleasantly confused and she admits to headache but denies other complaints. General Appearance: cooperative HEENT normocephalic, head/scalp atraumatic, hearing grossly normal bilaterally and moist oral mucous membranes Eyes PERRL and EOMs intact bilaterally Neck no lymphadenopathy and supple Resp normal respiratory effort, no retractions, no use of accessory muscles and clear to auscultation bilaterally Cardio regular rate and regular rhythm GI normal to inspection, nondistended, normoactive bowel sounds, soft to palpation, non-tender and non-distended GI Narrative: Obese. Extremity normal to inspection and full ROM Skin Skin Narrative: Patient has no evidence of rash, abscess, wounds or jaundice. Neuro CN's II-XII intact bilaterally, moves all extremities and no focal motor deficits Sensorium / Orientation: awake, alert, oriented to person and oriented to place Speech: speech normal Psych affect normal Results Medical Records Data Attestation: I reviewed the patient's medical records Lab / Micro Data Attestation: I reviewed the patient's lab results. 01/25/25 05:12 01/24/25 18:10 Labs: Laboratory Results - last 24 hr 01/24/25 18:10: WBC 8.6, RBC 4.55, Hgb 13.1, Hct 37.8, MCV 83.1, MCH 28.8, MCHC 34.7, RDW Std Deviation 39.8, RDW Coeff of Te 13.0, Plt Count 172, MPV 11.3, Immature Gran % (Auto) 0.200, Neut % (Auto) 74.3 H, Lymph % (Auto) 16.4 L, [place] % (Auto) 8.0, Eos % (Auto) 0.8, Baso % (Auto) 0.3, Absolute Neuts (auto) 6.4, Absolute Lymphs (auto) 1.42, Nucleated RBC % 0, Sodium 139, Potassium 4.0, Chloride 103, Carbon Dioxide 21.2, Anion Gap 15, BUN 17, Creatinine 1.05, Estim Creat Clear Calc 44.02 L, Est GFR (MDRD) Non-Af 52 L, BUN/Creatinine Ratio 16.4, Glucose 93, Calcium 8.5, Total Bilirubin 0.47, AST 24, ALT 21, Alkaline Phosphatase 75, Total Protein 6.1, Albumin 3.7, Globulin 2.4, Albumin/Globulin Ratio 1.6 01/24/25 18:15: Urine Color Yellow, Urine Clarity Sl. Cloudy, Urine pH 7.0, Ur Specific [place] 1.010, Urine Protein 15 H, Urine Glucose (UA) Normal, Urine Ketones Negative, Urine Occult Blood 10 H, Urine Nitrite Positive H, Urine Bilirubin Negative, Urine Urobilinogen Normal, Ur Leukocyte Esterase 25 H, Urine RBC 0-5 SEEN, Urine WBC 0-5 SEEN, Ur Squamous Epith Cells 0-5 SEEN, Urine Bacteria 0 SEEN, Urine Mucus 0 SEEN Micro: Microbiology 01/24/25 18:20 Mucosa - Nose SARS-CoV-2, Influenza & RSV (PCR) - Final Rhythm Strip Rhythm Strip: Sinus Rhythm Rate: 76 Ectopy: None Imaging Radiology Impression Brain CT 01/24/25 18:05 IMPRESSION: 1. No acute intracranial abnormality. 2. 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 Correlation with patient's symptoms is recommended. 3. Stable findings of chronic microvascular ischemic changes and age-related changes. Reading Location: [facility] Cervical Spine CT 01/24/25 18:05 IMPRESSION: NO ACUTE CERVICAL FRACTURE. DEGENERATIVE CHANGES. Reading Location: [facility] Chest X-Ray 01/24/25 18:05 IMPRESSION: NO ACUTE FINDINGS Reading Location: [facility] Lumbar Spine CT 01/24/25 18:05 IMPRESSION: NO ACUTE LUMBAR FRACTURE. DEGENERATIVE CHANGES. Reading Location: [facility] Assessment & Plan Assessment/Plan (1) NPH (normal pressure hydrocephalus): (2) Fall: QUALIFIERS: Encounter type: initial encounter Qualified Code(s): W19.XXXA - Unspecified fall, initial encounter (3) Back pain: QUALIFIERS: Back pain laterality: unspecified Back pain location: back pain in unspecified location Chronicity: acute Qualified Code(s): M54.9 - Dorsalgia, unspecified (4) Contusion of lower back and pelvis, initial encounter: (5) Generalized weakness: (6) Ambulatory dysfunction: (7) History of dementia: (8) Obesity (BMI 30-39.9): (9) Dilated ventricle: PLAN: Plan 1. CT of the brain that revealed no acute intracranial abnormality - but with findings compatible with Normal Pressure Hydrocephalus in addition to findings of chronic microvascular ischemic changes and age-related changes with a review of her previous brain CT in September 2023 not showing any NPH findings - Admit to general medical floor while we await transfer to tertiary care center for formal neurologic evaluation. Give acetaminophen prn for [id number] (level 1-5/10) pain or fever. Give oxycodone prn for severe (level 6-10/10) pain. 2. Fall at Home with persistent pain in the back of her head, neck and lower back with Contusion of Lower Back and Pelvis causing Generalized Weakness and Ambulatory Dysfunction in the setting of previously known BPPV complicating #1 - PT/OT and Case Management to consult and treat on-rounds in the AM for further recommendations with help appreciated in advance. Give meclizine prn for vertigo should it recur. 3. History of Dementia; currently not on treatment compounding #1 & #2 - Check TSH, B12, Folate, HgbA1c, Lipid Profile, SHAWNA and UDS to evaluate for potentially reversible causes of confusion. 4. Obesity; with BMI of 37.6 this admission adding to the burden of disease outlined from #1 - #3 - Weight loss will be recommended. This complicates her case and may hamper recovery. 5. History of Dilated Ventricle adding to the medical complexity of #1 - #4 - Check echocardiogram to evaluate LVEF. 6. Essential Hypertension; on lisinopril - Continue lisinopril as before plus give prn IV hydralazine for systolic blood pressure > 160 mmHg. 7. History of DM-2; of unknown control and not on treatment - ADA/cardiac diet. Check HgbA1c to confirm diabetic status. 8. Depression with anxiety; on citalopram - Maintain citalopram as before. 9. History of encephalopathy - Noted. 10. History of Influenza A - Noted. 11. History of hyperkalemia - Noted with normokalemia of 4 mmol/L present on admission. 12. Osteoporosis - Stable. 13. OA - Give acetaminophen prn as per pain scale outlined in #1. 14. DVT prophylaxis - Heparin 5,000U sq BID plus SCD's. Total time: Approximately (but not less than) 75 minutes. Charges/Coding Visit Charges Inpatient E&M: 55418 Init Hosp L3
--- NOTE | 2025-01-24 20:40 | CM.ED ---
Social Work Patient currently lives with son, daughter in law, and 2 grandson. Patient reports to falling last evening, having to have her grandsons help her up and into her room. Patient reported that she was unable to get out of bed today. As a result, patient was unable to eat today or get up to use the bathroom resulting in her being incontinent in bed. Patients daughter was at bedside, daughter expressed concerns regarding patient being home alone during the day. Both patient and daughter feel that patient should go to a fdc for rehab when medically ready. Daughter had questions regarding admission process, initial payor, and machine long goods helper payor. All questions answered. No further needs identified at this time. Amy Theodore PUBLIC RELATIONS WRITER, BULKER
[2025-01-24 21:00] VITALS: PULSE 75; RESP 19; O2SAT 96
--- NOTE | 2025-01-24 21:29 | ECHOD_ITS ---
Reason For Study Reason For Study: OTHER Procedure This was a 2D Doppler, Color Flow transthoracic echocardiogram. Technically difficult study due to patient confusion. Patient declined definity. Exam performed portable in patient room. Left Ventricle Normal LV size. Left ventricular systolic function is normal. Unable to assess diastolic dysfunction due to arrhythmia. The estimated ejection fraction is 65 %. Right Ventricle Normal RV size. Normal systolic function. Atria The left atrium is mildly enlarged. Normal right atrium. Mitral Valve Normal mitral valve. Mild (1+) mitral valve insufficiency. Tricuspid Valve Normal tricuspid valve. Mild to moderate (1-2+) tricuspid valve insufficiency. Pulmonary artery systolic pressure is 27 mmHg. Aortic Valve Trisinus/trileaflet aortic valve. Mild focal aortic valve calcification. There is no aortic stenosis. Pulmonic Valve Normal pulmonic valve. Mild (1+) pulmonic valve insufficiency. Great Vessels Normal sized aortic root. Pericardium/Pleural No pericardial effusion. MMode/2D Measurements & Calculations LVIDd: 3.2 cm IVSd: 1.1 cm LVOT diam: 2.0 cm LVIDs: 2.1 cm LVPWd: 1.0 cm LVOT area: 3.0 cm2 FS: 35.0 % LAV(MOD-bp): 44.5 ml LA A4 area: 21.0 cm2 LA dimension(2D): 4.4 cm LAV(MOD-bp) Indexed: 22.5 ml/m2 LAV(MOD-sp2): 30.8 ml LAV(MOD-sp4): 52.6 ml RA A4 area: 14.3 cm2 Doppler Measurements & Calculations MV E max lucero: 107.7 cm/sec Ao V2 max: 101.4 cm/sec LV V1 max: 127.1 cm/sec Ao max P.1 mmHg LV V1 max P.5 mmHg Ao V2 mean: 76.0 cm/sec LV V1 mean P.6 mmHg Ao mean P.5 mmHg LV V1 mean: 88.6 cm/sec Ao V2 VTI: 15.1 cm LV V1 VTI: 22.0 cm AV (velocity ratio): 1.5 TAWNYA(I,D): 4.4 cm2 TAWNYA(V,D): 3.8 cm2 SV(LVOT): 67.0 ml PA V2 max: 121.6 cm/sec TR max lucero: 245.6 cm/sec PA V2 mean: 85.1 cm/sec TR max P.1 mmHg ECHO/Echo Complete Interpretation Summary The estimated ejection fraction is 65 %. The left atrium is mildly enlarged. Mild (1+) mitral valve insufficiency. Mild focal aortic valve calcification. Ordering Physician: Vitaliy Du Referring Physician: AURORA CHAVEZ Performed By: Mary Darby RCS
--- NOTE | 2025-01-24 21:40 | PCA ---
[facility] CALLED, ACCEPTING PHYS IS
[2025-01-24 22:12] LABS: Hemoglobin A1c 5.8 % (<=5.6)
[2025-01-24 22:13] LABS: Amphetamine Urine NEGATIVE (<1000 ng/mL); Barbiturate Urine NEGATIVE (< 200 ng/mL); Benzodiazepine Urine NEGATIVE (< 200 ng/mL); Buprenorphine Urine NEGATIVE (< 200 ng/mL); Cocaine Urine NEGATIVE (< 300 ng/mL); Fentanyl, Urine NEGATIVE; Methadone Urine NEGATIVE (< 300 ng/mL); Opiates Urine NEGATIVE (< 300 ng/mL); Oxycodone, Urine NEGATIVE (< 100 ng/mL); PCP Urine NEGATIVE (< 25 ng/mL); THC Urine NEGATIVE (< 50 ng/mL)
[2025-01-24 22:14] LABS: Alcohol, Blood (Medical)-Serum < 10.1 mg/dL (<=10.0)
[2025-01-24 22:23] VITALS: BMI 37.2
[2025-01-24 22:30] VITALS: BP 144/77; PULSE 82; RESP 18; TEMP 36.9; O2SAT 97
[2025-01-24] MEDS: 0.9% Normal Saline (1000mL) 1,000 ML 50 ML IV (22:34)
[2025-01-24] MEDS: Acetaminophen 325 MG Tablet 650 MG PO (22:44)
[2025-01-24] MEDS: Heparin Injection (Vial) 5,000 UNIT/ML VIAL 5000 UNIT SC (22:44)
[2025-01-24] MEDS: MELATONIN 3 MG TABLET PO (22:46)
[2025-01-25 04:57] VITALS: BP 99/61; PULSE 84; RESP 18; TEMP 36.4; O2SAT 98
[2025-01-25 06:00] VITALS: BMI 37.5
[2025-01-25 06:06] LABS: Absolute Lymphocyte Count 1.97 X10^3/uL (0.83-4.51); Absolute Neutrophil Count 3.7 X10^3/uL (2.0-7.7); Basophil# 0.04 X10^3/uL; Basophil% 0.6 % (0-1); Eosinophil# 0.17 X10^3/uL; Eosinophils% 2.6 % (0-5); Hematocrit 36.8 % (37-47); Hemoglobin 12.6 g/dL (12.0-15.0); Lymphocyte # 1.97 X10^3/ul (0.83-4.51); Lymphocyte % 30.2 % (19-41); Mean Corp Hgb Conc 34.2 g/dL (32-36); Mean Corpuscular Hgb 28.9 pg (27.0-32.0); Mean Corpuscular Volume 84.4 fL (81-99); Mean Platelet Vol. 11.7 fl (6.2-12.0); Monocyte# 0.62 X10^3/uL; Monocyte% 9.5 % (0-10); NRBC Flagged by Analyzer 0 % (0-5); Neutrophil # 3.71 X10^3/uL (2.7-7.7); Neutrophil % 56.8 % (47-70); Platelet Count 160 K/mm3 (150-450); RBC Distribution Width CV 13.2 % (11.6-14.6); RBC Distribution Width SD 40.5 fl (35.1-43.9); Red Blood Count 4.36 M/mm3 (4.2-5.4); White Blood Count 6.5 K/mm3 (4.4-11.0)
[2025-01-25 07:02] LABS: Cholesterol 191 mg/dL (<=200); High Density Lipoprotein 79 mg/dL; Low Density Lipoprotein Calc. 100 mg/dL; Triglycerides 59 mg/dL; Very Low Density Lipoprotein 12 mg/dL (5-40); Vitamin B12 506 pg/mL (180-914); cholesterol:hdl ratio screen 2.41
[2025-01-25 09:10] LABS: Phosphorus 4.3 mg/dL (2.7-4.5)
--- NOTE | 2025-01-25 09:11 | CASEMGMT ---
Insurance review for hospitals In-network with [employer] insurance if transfer is recommended is as follows: [facility], [facility], [facility], [facility], [facility], , [place], [facility], [facility], and [place]. Asia Monroy, Discharge Planning Asst.
[2025-01-25 09:26] VITALS: BP 135/61; PULSE 78; RESP 16; TEMP 36.4; O2SAT 96
[2025-01-25] MEDS: Lisinopril 5 MG Tablet PO (09:38)
[2025-01-25] MEDS: Citalopram 20 MG Tablet PO (09:38)
[2025-01-25] MEDS: Heparin Injection (Vial) 5,000 UNIT/ML VIAL 5000 UNIT SC (09:38)
[2025-01-25] MEDS: Aspirin 81 MG TAB.CHEW PO (09:38)
[2025-01-25] MEDS: Multivitamins,Therapeutic Tablet 1 TABLET PO (09:38)
[2025-01-25 10:58] LABS: ALB/GLOB Ratio 1.5 RATIO (0.9-2.4); AST(SGOT) 23 U/L (<=31); Alanine Aminotransfer ALT/SGPT 16 U/L (<=34); Albumin, Serum 3.7 g/dL (3.4-4.8); Alkaline Phosphatase 70 U/L (35-104); Anion Gap 12 (5-15); BUN 20 mg/dL (4-19); BUN/Creat Ratio 17.3 RATIO (10-20); Calcium,Total 8.5 mg/dL (7.6-11.0); Carbon Dioxide 21.4 mmol/L (21.0-32.0); Chloride 106 mmol/L (98-108); Creatinine, Serum 1.18 mg/dL (0.70-1.20); EST Glomerular Filtration Rate 46 (>60); Estimated Creatinine Clearance 37.55 ml/min (50-250); Globulin 2.5 g/dL (2.2-4.2); Glucose 98 mg/dL (70-99); Potassium 3.8 mmol/L (3.3-5.1); Protein, Total 6.2 g/dL (5.9-8.4); Sodium Level 139 mmol/L (133-145); Total Bilirubin 0.47 mg/dL (0.00-1.30)
--- NOTE | 2025-01-25 11:19 | NURSING ---
Pt's son attempted to reach this RN this morning asking for an update about his mother's condition. This RN was in another patient's room and unable to take the call. This RN attempted to return call to son 2 times but unable to reach him and voicemail box is full.
--- NOTE | 2025-01-25 14:07 | EKG12_ITS ---
Test Reason : TACHY Blood Pressure : */* mmHG Vent. Rate : 127 BPM Atrial Rate : * BPM P-R Int : * ms QRS Dur : 84 ms QT Int : 304 ms P-R-T Axes : * 53 15 degrees QTcB Int : 441 ms Atrial fibrillation with rapid ventricular response Abnormal ECG When compared with ECG of 24-Jan-2025 18:25, Atrial fibrillation has replaced Sinus rhythm Vent. rate has increased by 51 bpm Confirmed by NELSON APODACA MD ([id number]), visual effects editor TONE ESPINOZA ([id number]) on 01/28/2025 11:44:54 AM Referred By: Confirmed By: NELSON APODACA MD
[2025-01-25 14:17] VITALS: BP 110/63; PULSE 115; RESP 16; TEMP 36.7; O2SAT 97
[2025-01-25 14:53] VITALS: BP 110/63; PULSE 115
[2025-01-25] MEDS: Metoprolol Tartrate 5 MG/5 ML Vial IV (14:53)
[2025-01-25] MEDS: 0.9% Saline Lock 10 ML Syringe IV (14:55)
--- NOTE | 2025-01-25 15:16 | PCA ---
Placed a called to [facility] transfer line, to update them on patient status change, Afib with RVR requiring tele for transport. updated vitals given as well, pt new room number, along with unit phone number
[2025-01-25 16:46] VITALS: BP 107/76; PULSE 108; RESP 18; TEMP 36.8; O2SAT 96
--- NOTE | 2025-01-25 17:04 | PCM.DC.SUM ---
Providers Date of Admission: 01/24/25 Date of Discharge: 01/25/25 Primary Care Physician: TASHIA Hunter Reason For Visit: NPH, FALL WITH PERSISTENT PAIN, GENERALIZED WEAK Diagnosis Discharge Diagnosis (1) NPH (normal pressure hydrocephalus): Status: Acute Code(s): G91.2 - (Idiopathic) normal pressure hydrocephalus (2) Fall: Status: Acute Code(s): W19.XXXA - Unspecified fall, initial encounter Qualifiers: Encounter type: initial encounter Qualified Code(s): W19.XXXA - Unspecified fall, initial encounter (3) Back pain: Status: Acute Code(s): M54.9 - Dorsalgia, unspecified Qualifiers: Back pain location: back pain in unspecified location Chronicity: acute Back pain laterality: unspecified Qualified Code(s): M54.9 - Dorsalgia, unspecified (4) Contusion of lower back and pelvis, initial encounter: Status: Acute Code(s): S30.0XXA - Contusion of lower back and pelvis, initial encounter (5) Generalized weakness: Status: Acute Code(s): R53.1 - Weakness (6) Ambulatory dysfunction: Status: Acute Code(s): R26.2 - Difficulty in walking, not elsewhere classified (7) History of dementia: Status: Acute Code(s): Z86.59 - Personal history of other mental and behavioral disorders (8) Obesity (BMI 30-39.9): Status: Acute Code(s): E66.9 - Obesity, unspecified (9) Dilated ventricle: Status: Acute Code(s): I51.7 - Cardiomegaly Medications at Discharge Home Medications aspirin 81 mg chewable tablet 81 mg PO DAILY@0800 heart [facility] 09/15/13 arm brace (Wrist Brace) #2 ea 02/20/21 Held on 01/24/25. Instructions: MD Ordered multivitamin 1 tablet PO DAILY supplement 02/20/21 acetaminophen 325 mg tablet (Tylenol) 650 mg (2 x 325 mg) PO Q6H PRN PRN Pain 1-10 Or Fever #1 TAB 10/03/21 lisinopril 5 mg tablet 5 mg PO DAILY htn #90 tabs 03/04/22 citalopram 20 mg tablet See Rx Instructions .Route .COMPLEX depression #90 tabs 02/09/23 Hospital Course Operations None Procedures EKG and - (CT brain/CT cervical spine/CT lumbar spine/chest x-ray) Summary of Care Provided Minutes Spent on Discharge: 38 Hospital Course: Mrs. Altamirano is an 84-year-old white female who presents emergency department [facility] on 01/25/2025 with a chief complaint of falls. At around 4:30 in the morning of presentation she was walking through her house and fell injuring her back and head and neck. Family helped to get her back in bed but she was not able to get out of bed for the rest the day. Patient was complaining of some head and neck pain as well as back pain after the fall. She does not take blood thinners at baseline. She lives with family's. Family also reports has been having some new urinary incontinence and some intermittent confusion. Patient has had no fever or chills, no shortness of breath, no nausea, vomiting, diarrhea. No blood in her stools or hematemesis. Vital signs on presentation showed temperature of 98, heart rate 86, respiratory rate 16, blood pressure was 136/98 and pulse ox was 95% on room air. Her CBC was completely unremarkable. Her chemistry panel was unremarkable. Hemoglobin A1c was 5.8. Liver functions were normal. Lipid panel showed a total cholesterol 191, LDL 100, HDL 79, triglycerides 59. B12 was 506, folate was 17. TSH was 1.56. Her urine showed nitrites and leuk esterase at 25 however she had no white cells or bacteria. Toxicology screen was unremarkable. Ethyl alcohol level was less than 10.1. CT of the brain showed findings compatible with normal pressure hydrocephalus that was new from previous CT in 2022. CT of the cervical spine showed multilevel generative disc disease with severe central neuroforaminal stenosis on the right at C5 and C6 but no acute findings and no fractures. CT of the lumbar spine again showed multilevel degenerative disc disease but no acute fractures or abnormalities. Chest x-ray showed no acute findings. EKG on presentation showed normal sinus rhythm with normal intervals and no ST-T wave changes concerning for acute ischemia. Given the finding of normal pressure hydrocephalus on imaging patient was transferred to [facility]. Bed was not available immediately so she was admitted to [facility] until bed became available. She was initially evaluated the morning of 01/17/2025 and was stable. Had no significant complaints at that time. I was called early to mid afternoon at which time she had developed heart rates in the 140s to 160s. Twelve-lead EKG was obtained and she was found to be in A-fib with RVR. This is new and she has no history of this. She was started on heparin drip and given 5 mg of IV metoprolol x 1 dose. Heart rates improved to 100-1 10 with IV metoprolol and blood pressures remained stable. She was transferred to telemetry floor and echocardiogram was ordered and she was started on a heparin drip in the event that cardioversion would be preferred in the future. We were able to get an echocardiogram done prior to discharge. This showed an EF of 65% with a mildly enlarged left atrium, mild mitral valve insufficiency and mild focal aortic valve calcification without stenosis. She was started on metoprolol 50 mg p.o. twice daily and monitored on telemetry. Again her TSH was performed and was found to be within normal limits. A bed became available at [facility] for further neurological evaluation. She was discharged to [facility] on 01/25/2025 in stable condition. Discharge diagnoses: Normal pressure hydrocephalus New onset A-fib with RVR Urinary incontinence-new Gait disturbance Generalized weakness History of dementia-patient alert and oriented x 3 on my exam Essential hypertension DM-2-diet controlled Osteoporosis Osteoarthritis Obesity-BMI 37.3 Anxiety Depression Physical Exam Const alert, oriented x3, no apparent distress, no limitations and well nourished Constitutional Narrative: Obese, elderly, white female, lying in bed, appears comfortable this time, nontoxic, watching television General Appearance: cooperative, comfortable, well kempt and well developed Exam Limitations: no limitations Nutritional Appearance: obese HEENT normocephalic, head/scalp atraumatic and moist oral mucous membranes HEENT Narrative: Mallampati 2, no thrush Eyes conjunctivae normal Eyes Narrative: No scleral icterus Neck supple Neck Narrative: Trachea midline, no thyroid enlargement Resp normal respiratory effort, no retractions, no use of accessory muscles and clear to auscultation bilaterally Auscultation: Negative for rales, rhonchi or wheezes Cardio regular rate, regular rhythm, S1 normal heart sound, S2 normal heart sound, no murmurs, no rub, no gallops and no clicks GI normal to inspection, nondistended, normoactive bowel sounds, soft to palpation and non-tender Extremity no clubbing, cyanosis or edema Extremity Narrative: 2+ pedal and radial pulses Skin skin turgor normal, no jaundice, no petechiae and no mottling Skin Narrative: Some scattered ecchymosis Neuro oriented x3 and moves all extremities Neuro Narrative: Generalized weakness noted but no focal deficits Speech: speech normal Psych Psych Narrative: Affect is slightly flat but patient interacts appropriately and answers questions Weight / BMI Weight Weight: 92.4 kg Body Mass Index (BMI) 37.5 ABG / Lab / Microbiology Data 01/25/25 05:12 01/25/25 05:12 Laboratory: Laboratory Results - last 24 hr 01/24/25 18:10: WBC 8.6, RBC 4.55, Hgb 13.1, Hct 37.8, MCV 83.1, MCH 28.8, MCHC 34.7, RDW Std Deviation 39.8, RDW Coeff of Te 13.0, Plt Count 172, MPV 11.3, Immature Gran % (Auto) 0.200, Neut % (Auto) 74.3 H, Lymph % (Auto) 16.4 L, [place] % (Auto) 8.0, Eos % (Auto) 0.8, Baso % (Auto) 0.3, Absolute Neuts (auto) 6.4, Absolute Lymphs (auto) 1.42, Nucleated RBC % 0, Sodium 139, Potassium 4.0, Chloride 103, Carbon Dioxide 21.2, Anion Gap 15, BUN 17, Creatinine 1.05, Estim Creat Clear Calc 44.02 L, Est GFR (MDRD) Non-Af 52 L, BUN/Creatinine Ratio 16.4, Glucose 93, Hemoglobin A1c 5.8, Calcium 8.5, Magnesium 2.0, Total Bilirubin 0.47, AST 24, ALT 21, Alkaline Phosphatase 75, Total Protein 6.1, Albumin 3.7, Globulin 2.4, Albumin/Globulin Ratio 1.6, TSH 1.560 01/24/25 18:15: Urine Color Yellow, Urine Clarity Sl. Cloudy, Urine pH 7.0, Ur Specific [place] 1.010, Urine Protein 15 H, Urine Glucose (UA) Normal, Urine Ketones Negative, Urine Occult Blood 10 H, Urine Nitrite Positive H, Urine Bilirubin Negative, Urine Urobilinogen Normal, Ur Leukocyte Esterase 25 H, Urine RBC 0-5 SEEN, Urine WBC 0-5 SEEN, Ur Squamous Epith Cells 0-5 SEEN, Urine Bacteria 0 SEEN, Urine Mucus 0 SEEN, Urine Opiates Screen NEGATIVE, U Buprenorphine Qual NEGATIVE, Ur Oxycodone Screen NEGATIVE, Urine Methadone Screen NEGATIVE, Urine Fentanyl Screen NEGATIVE, Ur Barbiturates Screen NEGATIVE, Ur Phencyclidine Scrn NEGATIVE, Ur Amphetamines Screen NEGATIVE, U Benzodiazepines Scrn NEGATIVE, Urine Cocaine Screen NEGATIVE, U Cannabinoids Screen NEGATIVE 01/24/25 21:38: Serum Folate Cancelled, Ethyl Alcohol < 10.1 01/25/25 00:49: Serum Folate 17.00 01/25/25 05:12: WBC 6.5, RBC 4.36, Hgb 12.6, Hct 36.8 L, MCV 84.4, MCH 28.9, MCHC 34.2, RDW Std Deviation 40.5, RDW Coeff of Te 13.2, Plt Count 160, MPV 11.7, Immature Gran % (Auto) 0.300, Neut % (Auto) 56.8, Lymph % (Auto) 30.2, [place] % (Auto) 9.5, Eos % (Auto) 2.6, Baso % (Auto) 0.6, Absolute Neuts (auto) 3.7, Absolute Lymphs (auto) 1.97, Nucleated RBC % 0, Sodium 139, Potassium 3.8, Chloride 106, Carbon Dioxide 21.4, Anion Gap 12, BUN 20 H, Creatinine 1.18, Estim Creat Clear Calc 37.55 L, Est GFR (MDRD) Non-Af 46 L, BUN/Creatinine Ratio 17.3, Glucose 98, Calcium 8.5, Phosphorus 4.3, Total Bilirubin 0.47, AST 23, ALT 16, Alkaline Phosphatase 70, Total Protein 6.2, Albumin 3.7, Globulin 2.5, Albumin/Globulin Ratio 1.5, Triglycerides 59, Cholesterol 191, LDL Cholesterol, Calc 100, VLDL Cholesterol 12, HDL Cholesterol 79, Cholesterol/HDL Ratio 2.41, Vitamin B12 506 Microbiology: Microbiology 01/24/25 18:20 Mucosa - Nose SARS-CoV-2, Influenza & RSV (PCR) - Final Radiography Diagnostic Testing: Radiology Impression Brain CT 01/24/25 18:05 IMPRESSION: 1. No acute intracranial abnormality. 2. 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 Correlation with patient's symptoms is recommended. 3. Stable findings of chronic microvascular ischemic changes and age-related changes. Reading Location: [facility] Cervical Spine CT 01/24/25 18:05 IMPRESSION: NO ACUTE CERVICAL FRACTURE. DEGENERATIVE CHANGES. Reading Location: [facility] Chest X-Ray 01/24/25 18:05 IMPRESSION: NO ACUTE FINDINGS Reading Location: [facility] Lumbar Spine CT 01/24/25 18:05 IMPRESSION: NO ACUTE LUMBAR FRACTURE. DEGENERATIVE CHANGES. Reading Location: [facility] Echocardiogram 01/24/25 21:29 Interpretation Summary The estimated ejection fraction is 65 %. The left atrium is mildly enlarged. Mild (1+) mitral valve insufficiency. Mild focal aortic valve calcification. Ordering Physician: Vitaliy Du Referring Physician: AURORA CHAVEZ Performed By: Mary Darby RCS D/C Instructions DC O2, CPAP, BIPAP Needs Home O2 Discharge instructions: No Meaningful Use Info Meaningful Use Meaningful Use Diagnoses (Choose all that apply): None applicable Ischemic Stroke Statin Dosing Therapy Reference: STATIN DOSE THERAPY REFERENCE: * Patients > 75 years receive moderate or high dose statin therapy. * Patients 75 years or YOUNGER should receive HIGH intensity statin dose unless contraindicated. You will be required to document reason for non-treatment if statin daily dose does not meet guidelines. HIGH DOSE STATIN THERAPY DAILY Atorvastatin > than or = to 40 mg Rosuvastatin > than or = to 20 mg Amlodipine + Atorvastatin > than or = to 2.5/40 mg Ezetimibe + Simvastatin 10/80 mg Simvastatin 80mg Discharge Plan Admission Admit Date/Time: 01/24/25 21:20 Primary Reason for Your Visit: Falls/Urinary Incontinence/Confusion Attending Provider: Codie Thomason Primary Care Provider: Aurora Chavez NP Consulting Providers: Vitaliy Du Discharge Orders/Prescriptions Prescriptions: No Action multivitamin Tablet 1 tablet PO DAILY (DME) Wrist Brace Misc See Rx Instructions .ROUTE .MEDSUPPLY Qty: 2 2RF Rx Instructions: As directed aspirin 81 MG tablet,chewable 81 mg PO DAILY@0800 Patient Comments: Blood thinner for heart health acetaminophen [Tylenol] 325 mg Tablet 650 mg PO Q6H PRN PRN (Reason: Pain 1-10 Or Fever) Qty: 1 0RF lisinopril 5 mg tablet 5 mg PO DAILY Qty: 90 3RF Patient Comments: HASN'T HAD REFILLED FOR APPROX 1 MONTH citalopram 20 mg tablet See Rx Instructions .ROUTE .COMPLEX Qty: 90 0RF Dose Instruction: TAKE 1 TABLET EVERY DAY Rx Instructions: TAKE 1 TABLET EVERY DAY Referrals / Follow Up: Aurora Chavez NP, [facility] [Primary Care Provider] - Disposition Disposition (needs filled in before D/C Order can be placed): Acute Care Hospital Charges/Coding Visit Charges Inpatient E&M: 59960 Disch Hosp >30min
[2025-01-25 18:06] LABS: Partial Thromboplast Time 27.3 Seconds (24.1-36.2)
[2025-01-25] MEDS: HEPARIN/D5w 25,000 UNITS 25,000 UNITS/250 ML IV.SOLN. 14 UNITS CONT INF (18:11)
[2025-01-25] MEDS: Heparin Injection (Vial) 5,000 UNIT/ML VIAL 7500 UNIT IV (18:12)
--- NOTE | 2025-01-25 18:50 | NURSING ---
Called in report to MARY Potts of [facility] at 18:50.
[2025-01-25 20:12] VITALS: BP 129/59; PULSE 87; RESP 18; TEMP 36.9; O2SAT 95
== END 2025-01-25 21:12 | disposition short-term general hospital (02) | DRG 57 ==
LOC: ED 20:59 → MS3 21:43 → PCU 01-25 16:25
PROVIDERS: Admitting Provider Internal Medicine; Emergency Provider Emergency Medicine; PCP Nurse Practitioner Family; Visit Provider Internal Medicine
DX: G91.2 (Idiopathic) normal pressure hydrocephalus (principal); E11.9 Type 2 diabetes mellitus without complications; I10 Essential (primary) hypertension; F03.90 Unspecified dementia, unspecified severity, without behavioral disturbance, psychotic disturbance, mood disturbance, and anxiety; Z68.37 Body mass index [BMI] 37.0-37.9, adult; H81.10 Benign paroxysmal vertigo, unspecified ear; M54.50 Low back pain, unspecified; S20.229A Contusion of unspecified back wall of thorax, initial encounter; M19.90 Unspecified osteoarthritis, unspecified site; F41.8 Other specified anxiety disorders; W19.XXXA Unspecified fall, initial encounter; M54.2 Cervicalgia; R53.1 Weakness; R26.89 Other abnormalities of gait and mobility; E66.9 Obesity, unspecified; I51.7 Cardiomegaly; G44.309 Post-traumatic headache, unspecified, not intractable; M81.0 Age-related osteoporosis without current pathological fracture
CPT/HCPCS: 36415; 70450; 71046; 72125; 72131; 80053; 80061; 80307; 81001; 82077; 82607; 82746; 83036; 83735; 84100; 84443; 85025; 85730; 87631; 93005; 93306; 97166; 99285; P9612; A4216